=== PATIENT | female | born 1995 | race American Indian/Alaskan Native ===

== ENCOUNTER 2016-03-02 13:58 | Emergency (ER) | payer SELFPAY ==
[2016-03-02 15:09] VITALS: BP 101/56
--- NOTE | 2016-03-02 18:23 | Emergency Department Report ---
Chief Complaint: Urogenital-Female Stated Complaint: STD Time Seen by Provider: 03/02/16 18:07 - HPI History of Present Illness: 20-year-old female presents today complaining of white vaginal discharge since yesterday. Patient states that her boyfriend has also been having discharge. Positive for history of Trichomonas, has been treated. Denies burning upon urination, increased urinary frequency or urgency, fever, chills, nausea, vomiting, chest pain, shortness of breath, abdominal pain. - ROS Review of Systems: Per HPI - Exam Vital Signs: Vital Signs 03/02/16 15:07 Temperature 98.8 F Pulse Rate 71 Respiratory 20 Rate Blood Pressure 101/56 O2 Sat by Pulse 100 Oximetry Physical Exam: General: 20-year-old female in no acute distress. Well-developed, well- nourished. CV: Regular rate and rhythm. Lungs: Clear to auscultation bilaterally. Abdomen: No tenderness to palpation. No guarding or rebound tenderness. Normal bowel sounds. Negative for CVA tenderness bilaterally. MSE screening note: Focused history and physical exam performed. Due to findings the following was ordered: ED Disposition for MSE Disposition: MEDICAL SCREENING EXAM-LEFT Condition: Stable Referrals: PRIMARY CARE, [Primary Care Provider] - 3-5 Days
== END 2016-03-02 18:33 | disposition left against medical advice (07) ==
LOC: ED 13:58
DX: N89.8 Other specified noninflammatory disorders of vagina (principal); Z53.21 Procedure and treatment not carried out due to patient leaving prior to being seen by health care provider

== ENCOUNTER 2016-03-18 20:47 | Emergency (ER) | payer SELFPAY | END 2016-03-18 21:06 | disposition left against medical advice (07) | LOC: ED 20:47 | DX: R10.9 Unspecified abdominal pain (principal); Z53.21 Procedure and treatment not carried out due to patient leaving prior to being seen by health care provider ==

== ENCOUNTER 2016-06-08 16:40 | Emergency (ER) | payer SELFPAY ==
--- NOTE | 2016-06-08 18:37 | Emergency Department Report ---
Entered by JOANNE SADLER, acting as scribe for JEFFERSON SLAUGHTER NP. Chief Complaint: Back Pain/Injury Stated Complaint: BACK PAIN/WHITE D/C /VOMITING Time Seen by Provider: 06/08/16 18:26 - HPI History of Present Illness: 20 y/o female presents c/o back pain that started 2 weeks ago. Secondary complaint includes vaginal discharge with associated Sx of nausea but pt denies vaginal itching, abd pain or vaginal bleeding. She notes positive test at home, one sexual partner and 2nd overall. LMP 01/2016 lmp end dec no concern st l back pain no abd pain no vag bleed no neuro or focal deficits NAD VSS Ambulatory - ROS Review of Systems: as noted in HPI - Exam Vital Signs: Vital Signs 06/08/16 18:14 Temperature 98.3 F Pulse Rate 86 Respiratory 20 Rate Blood Pressure 98/63 O2 Sat by Pulse 100 Oximetry Physical Exam: as noted in HPI MSE screening note: Focused history and physical exam performed. Due to findings the following was ordered: ED Disposition for MSE Condition: Stable This documentation as recorded by the scribe,JOANNE SADLER,accurately reflects the service I personally performed and the decisions made by ,JEFFERSON SLAUGHTER NP.
[2016-06-08 19:43] LABS: Bacteria,Urine 1+ /HPF (Negative); Bilirubin,Urine NEG (Negative); Blood,Urine NEG (Negative); Ketones,Urine NEG (Negative); Leukocyte Esterase,Urine TR (Negative); Mucus,Urine 3+ /HPF; Nitrite,Urine NEG (Negative); Protein,Urine <15 mg/dL mg/dL (Negative)
[2016-06-08 23:24] LABS: Basophils % (Auto) 0.2 % (0.0-1.8); Hematocrit 34.6 % (30.3-42.9); Mean Corpuscular HGB Conc 35 % (30-34); Mean Corpuscular Hemoglobin 31 pg (28-32); Mean Corpuscular Volume 89 fl (79-97); Platelet Count 241 K/mm3 (140-440); Red Blood Count 3.88 M/mm3 (3.65-5.03); Red Cell Distribution Width 13.6 % (13.2-15.2)
--- NOTE | 2016-06-08 23:33 | Ultrasound Report ---
FINAL REPORT PROCEDURE: US OB TECHNIQUE: Real-time transabdominal and transvaginal sonography of the uterus, placenta, amniotic fluid, adnexa, and fetus was performed with image documentation. Measurements were obtained to determine age/size. M-mode Doppler was used to document heartbeat. CPT 75960 HISTORY: Abdominal pain and back pain. COMPARISON: No prior studies are available for comparison. FINDINGS: LMP: 02/13/2016. Clinical age: 16 weeks 4 days. CARMEN: 11/19/2016. GENERAL: IUP: Single living intrauterine . Position: Cephalic. Placental position: Anterior, grade 0 without previa. Amniotic fluid volume: Normal. MATERNAL: Uterus: Within normal limits. Cervical length: 3.47 cm. Internal Os: Closed. FETUS: Heart rate and rhythm: 158 BPM, Regular. anatomic survey: Normal. Brain, stomach, kidneys, bladder, diaphragm, heart, three-vessel cord, cord insertion visualized. Limited visualization of the spine and four-chamber heart. MEASUREMENTS: BPD: 3.31 centimeters, 16 weeks 2 days HC: 12.11 centimeters, 16 weeks 0 days AC: 9.42 centimeters, 15 weeks 4 days FL: 1.85 centimeters, 15 weeks 3 days Mean Gestational Age (composite criteria): 15 weeks 6 days Estimated Weight: 128 grams. Interval growth: Appropriate. Estimated Due Date (earliest scan): 11/24/2016 IMPRESSION: Single intrauterine gestation at 15 weeks 6 days. Estimated due date: 11/24/2016. Normal survey with appropriate growth.
[2016-06-08 23:42] LABS: Anion Gap 17 mmol/L; Blood Urea Nitrogen 4 mg/dL (7-17); Calcium 8.6 mg/dL (8.4-10.2); Carbon Dioxide 23 mmol/L (22-30); Chloride 98.1 mmol/L (98-107); Glucose 95 mg/dL (65-100); Potassium 3.5 mmol/L (3.6-5.0); Sodium 135 mmol/L (137-145)
--- NOTE | 2016-06-09 00:45 | Emergency Department Report ---
HPI - General Chief Complaint: Back Pain/Injury Time Seen by Provider: 06/08/16 22:17 - HPI HPI: 20-year-old female comes in for complaint of vaginal discharge with nausea 2 weeks. Patient also complains of left lower pelvic pain nausea is intermittent she denies any vaginal bleeding denies any dysuria she feels she possibly could be her last menstrual period was sometime in January. She is 2 para 1 she has a 1-year-old boy she did check a home test back in February which was positive. Patient has no past medical history currently on no medications. ED Past Medical Hx - Past Medical History Previous Medical History?: Yes Hx Hypertension: No Hx Congestive Heart Failure: No Hx Diabetes: No Hx Deep Vein Thrombosis: No Hx Renal Disease: No Hx Sickle Cell Disease: No Hx Seizures: No Hx Asthma: No Hx COPD: No Hx HIV: No Additional medical history: freq uti/pyleonephritis - Surgical History Past Surgical History?: No - Social History Smoking Status: Never Smoker Substance Use Type: None - Medications Home Medications: Home Medications Medication Instructions Recorded Confirmed Last Taken Type metroNIDAZOLE 0.75% [Metrogel 1 applicatio TP QHS #5 tube 15 01/21/15 Unknown Rx 0.75% TOPICAL] Docusate Sodium [Colace] 100 mg PO BID PRN #60 capsule 01/21/15 Unknown Rx Ferrous Sulfate [Feosol 325 MG tab] 325 mg PO TID #120 tablet 01/21/15 Unknown Rx Ibuprofen [Motrin 600 MG tab] 600 mg PO Q6H #30 tablet 01/21/15 Unknown Rx Doxylamine/Pyridoxine HCl 1 each PO QHS PRN #20 tablet. 06/09/16 Unknown Rx [Shilpa Serna 10-10 mg Tablet] Jennie Root [Jennie] 250 mg PO QID PRN #20 capsule 06/09/16 Unknown Rx Pnv95/Ferrous Fumarate/FA 1 each PO QDAY #90 tablet 06/09/16 Unknown Rx [ Caplet] metroNIDAZOLE [Flagyl] 500 mg PO Q12HR #14 tab 06/09/16 Unknown Rx ED Review of Systems ROS: Stated complaint: BACK PAIN/WHITE D/C /VOMITING Other details as noted in HPI Physical Exam - Physical Exam Vital Signs: Vital Signs 06/08/16 18:14 Temperature 98.3 F Pulse Rate 86 Respiratory 20 Rate Blood Pressure 98/63 O2 Sat by Pulse 100 Oximetry Physical Exam: GENERAL: Alert and oriented x3, no apparent distress, Normal Gait, atraumatic. HEAD: Head is normocephalic and a-traumatic. EYES: Extra ocular muscles are intact. Pupils are equal, round, and reactive to light and accommodation. NOSE: Nose symetrical, Nontender,Nares appeared normal. MOUTH:Mouth is well hydrated and without lesions. Tonsils nonerythematous or swollen, Uvula midline, Tongue not elevated. Mucous membranes are moist. Posterior pharynx clear, no exudate or lesions. Patent airways. NECK: Supple. Non edematous, No carotid bruits. No lymphadenopathy or thyromegaly. LUNGS: Symetrical with respiration, No wheezing, no rales or crackles, CTAB. HEART: S1, S2 present, regular rate and rhythm without murmur, no rubs, no gallops. ABDOMEN: No organomegaly was noted,Positive bowel sounds, soft, and non- distended. . Nontender to palpation on all Quadrants, NO CVA tenderness. BREAST: Symetrical, Supple bilaterally, No Masses, lumps, lesions, ulcerations. GENITOURINARY: External genitalia without erythema, exudate or discharge. Vaginal vault is without discharge. Cervix is of normal color without lesion. Cervical os is closed. No bleeding noted. but friable. Uterus is noted to be of enlarged.. No cervical motion tenderness. No masses are palpated. The adnexa are without masses or tenderness. EXTREMITIES/MUSCULOSKELETAL: No cyanosis, clubbing, rash, lesions or edema. Full ROM bilaterally. UE/LE Pulses 2+ bilaterally. LE and UE 5+ strength bilaterally NEUROLOGIC: No focal Deficit, Cranial nerves II through XII are grossly intact. No loss of sensation, No facial droop, PSYCHIATRIC: Mood is congruent with affect, SKIN: Warm and dry, No lesions, No ulceration or induration present ED Course Vital Signs 06/08/16 18:14 Temperature 98.3 F Pulse Rate 86 Respiratory 20 Rate Blood Pressure 98/63 O2 Sat by Pulse 100 Oximetry ED Medical Decision Making - Lab Data Result diagrams: 06/08/16 23:02 06/08/16 23:02 Critical care attestation.: If time is entered above; I have spent that time in minutes in the direct care of this critically ill patient, excluding procedure time. ED Disposition Clinical Impression: BV (bacterial vaginosis) Qualifiers: Weeks of gestation: 16 weeks Qualified Code(s): Z3A.16 - 16 weeks gestation of Disposition: DISCHARGED TO HOME OR SELFCARE Is pt being admited?: No Does the pt Need Aspirin: No Condition: Stable Instructions: Bacterial Vaginosis (ED) Additional Instructions: It's very important for you to take her vitamins as prescribed. Please follow-up with an OB specialist to be sure you're having a healthy . He can only take Tylenol for pain medicine at this time. Prescriptions: Doxylamine/Pyridoxine HCl [Shilpa Serna 10-10 mg Tablet] 1 each PO QHS PRN #20 tablet. PRN Reason: Nausea Jennie Root [Jennie] 250 mg PO QID PRN #20 capsule PRN Reason: Nausea metroNIDAZOLE [Flagyl] 500 mg PO Q12HR #14 tab Pnv95/Ferrous Fumarate/FA [ Caplet] 1 each PO QDAY #90 tablet Referrals: PRIMARY CARE, [Primary Care Provider] - 3-5 Days [facility] [Provider Group] - 3-5 Days Forms: STI Treatment and Prevention
[2016-06-09] MEDS ORDERED: ZITHROMAX PO ONE (00:46)
[2016-06-09] MEDS ORDERED: XYLOCAINE 1% MPF 5 mL INFILTRATI ONE (00:46)
[2016-06-09] MEDS ORDERED: ROCEPHIN IM ONE (00:46)
[2016-06-09] MEDS ORDERED: TYLENOL PO ONE (00:48)
[2016-06-09 01:33] VITALS: BP 119/72
== END 2016-06-09 01:32 | disposition home or self-care (01) ==
LOC: ED 16:40
DX: O23.592 Infection of other part of genital tract in pregnancy, second trimester (principal); N76.0 Acute vaginitis; Z3A.16 16 weeks gestation of pregnancy; Z87.440 Personal history of urinary (tract) infections
CPT/HCPCS: 36415; 76805; 76817; 80048; 81001; 81025; 84702; 85025; 86900; 86901; 87210; 96372; 99284; J0696; 87591

== ENCOUNTER 2016-08-14 11:47 | Outpatient (CLI) | payer MEDICAID ==
[2016-08-14] MEDS ORDERED: LACTATED RINGERS 500 ML IV ONE (12:14)
[2016-08-14 12:37] LABS: Bilirubin,Urine NEG (Negative); Blood,Urine NEG (Negative); Ketones,Urine NEG (Negative); Leukocyte Esterase,Urine NEG (Negative); Mucus,Urine FEW /HPF; Nitrite,Urine NEG (Negative); Protein,Urine <15 mg/dL mg/dL (Negative); Urobilinogen,Urine < 2.0 mg/dL (<2.0); WBC,Urine < 1.0 /HPF (0.0-6.0)
[2016-08-14 13:44] VITALS: BP 92/56
== END 2016-08-14 13:30 | disposition home or self-care (01) ==
LOC: TRG 11:47
PROVIDERS: ATTEND Obstetrics & Gynecology
DX: Z34.92 Encounter for supervision of normal pregnancy, unspecified, second trimester (principal); Z3A.27 27 weeks gestation of pregnancy
CPT/HCPCS: 36415; 59025; 81001; 82731; 87086

== ENCOUNTER 2016-11-08 16:03 | Outpatient (CLI) | payer MEDICAID ==
[2016-11-08 16:34] VITALS: BP 95/63
== END 2016-11-08 17:05 | disposition home or self-care (01) ==
LOC: TRG 16:03
PROVIDERS: ATTEND Obstetrics & Gynecology
DX: O47.1 False labor at or after 37 completed weeks of gestation (principal); Z3A.37 37 weeks gestation of pregnancy
CPT/HCPCS: 59025

== ENCOUNTER 2017-06-28 05:09 | Emergency (ER) | payer SELFPAY ==
[2017-06-28 05:28] VITALS: BP 100/62
[2017-06-28 06:16] LABS: Bacteria,Urine 1+ /HPF (Negative); Bilirubin,Urine NEG (Negative); Blood,Urine NEG (Negative); Color,Urine Yellow (Yellow); Mucus,Urine 3+ /HPF
== END 2017-06-28 05:30 | disposition left against medical advice (07) ==
LOC: ED 05:09
DX: R11.2 Nausea with vomiting, unspecified (principal); R51 Headache; Z53.21 Procedure and treatment not carried out due to patient leaving prior to being seen by health care provider
CPT/HCPCS: 81001

== ENCOUNTER 2017-08-10 15:54 | Emergency (ER) | payer SELFPAY ==
[2017-08-10 16:46] VITALS: BP 95/65
[2017-08-10 18:19] LABS: HCG Qualitative,Urine Positive (Negative)
[2017-08-10 18:20] LABS: Bacteria,Urine 1+ /HPF (Negative); Bilirubin,Urine NEG (Negative); Blood,Urine NEG (Negative); Color,Urine Yellow (Yellow); Mucus,Urine 3+ /HPF
--- NOTE | 2017-08-10 20:24 | Emergency Department Report ---
ED General Adult HPI - General Chief complaint: Urogenital-Female Stated complaint: SORE BREAST, NAUSEA,VOMITING AND ABD PAIN Time Seen by Provider: 08/10/17 20:16 Source: patient Mode of arrival: Ambulatory Limitations: No Limitations - History of Present Illness Initial comments: Ms. Vitale is a healthy 21-year-old female who came to the ER for confirmation of . She stated that her home test was positive. Her period was Several weeks late. She requires a prescription for UTI.. She was diagnosed with UTI at outside hospital but lost her prescription. LMP 2017. She denies any pain. Denies any fever. She does have breast soreness and morning sickness. - Related Data Previous Rx's Medication Instructions Recorded Last Taken Type Nitrofurantoin Macrocrystal 100 mg PO BID 10 Days #20 capsule 08/10/17 Unknown Rx [Nitrofurantoin] Allergies Allergy/AdvReac Type Severity Reaction Status Date / Time No Known Allergies Allergy Verified 09/12/14 16:54 ED Review of Systems ROS: Stated complaint: SORE BREAST, NAUSEA,VOMITING AND ABD PAIN Other details as noted in HPI Comment: All other systems reviewed and negative Constitutional: denies: fever, malaise Respiratory: denies: cough Cardiovascular: denies: chest pain Gastrointestinal: nausea. denies: abdominal pain ED Past Medical Hx - Past Medical History Previous Medical History?: Yes Hx Hypertension: No Hx Congestive Heart Failure: No Hx Diabetes: No Hx Deep Vein Thrombosis: No Hx Renal Disease: No Hx Sickle Cell Disease: No Hx Seizures: No Hx Asthma: No Hx COPD: No Hx HIV: No Additional medical history: freq uti/pyleonephritis, Vaginal dleivery 01-20-2017 , 11-19-2017 - Surgical History Past Surgical History?: No - Social History Smoking Status: Current Every Day Smoker Substance Use Type: None - Medications Home Medications: Home Medications Medication Instructions Recorded Confirmed Last Taken Type Nitrofurantoin Macrocrystal 100 mg PO BID 10 Days #20 capsule 08/10/17 Unknown Rx [Nitrofurantoin] ED Physical Exam - General Limitations: No Limitations General appearance: alert, in no apparent distress - Head Head exam: Present: atraumatic, normocephalic - Eye Eye exam: Present: normal appearance - ENT ENT exam: Present: mucous membranes moist - Neck Neck exam: Present: normal inspection - Respiratory Respiratory exam: Present: normal lung sounds bilaterally. Absent: respiratory distress, wheezes, rales, rhonchi - Cardiovascular Cardiovascular Exam: Present: regular rate, normal rhythm, normal heart sounds. Absent: systolic murmur, diastolic murmur, rubs, gallop - GI/Abdominal GI/Abdominal exam: Present: soft, normal bowel sounds. Absent: distended, tenderness, guarding, rebound - Extremities Exam Extremities exam: Present: normal inspection - Back Exam Back exam: Present: normal inspection - Neurological Exam Neurological exam: Present: alert, oriented X3 - Psychiatric Psychiatric exam: Present: normal affect, normal mood - Skin Skin exam: Present: warm, dry, intact, normal color. Absent: rash ED Course Vital Signs 08/10/17 16:42 Temperature 98.6 F Pulse Rate 78 Respiratory 18 Rate Blood Pressure 95/65 O2 Sat by Pulse 99 Oximetry ED Medical Decision Making - Medical Decision Making Ms. Vitale has confirmed with urine test. She also will be treated for UTI. Prescribed nitrofurantoin. Critical care attestation.: If time is entered above; I have spent that time in minutes in the direct care of this critically ill patient, excluding procedure time. ED Disposition Clinical Impression: , UTI (urinary tract infection) Disposition: - TO HOME OR SELFCARE Is pt being admited?: No Does the pt Need Aspirin: No Condition: Stable Instructions: Urinary Tract Infection in Women (ED), (ED) Prescriptions: Nitrofurantoin Macrocrystal [Nitrofurantoin] 100 mg PO BID 10 Days #20 capsule Referrals: MARK AVINA MD [Staff Physician] - 3-5 Days Time of Disposition: 20:24
== END 2017-08-10 20:25 | disposition home or self-care (01) ==
LOC: ED 15:54
DX: O23.41 Unspecified infection of urinary tract in pregnancy, first trimester (principal); O26.891 Other specified pregnancy related conditions, first trimester; O92.29 Other disorders of breast associated with pregnancy and the puerperium; O99.331 Smoking (tobacco) complicating pregnancy, first trimester; Z3A.01 Less than 8 weeks gestation of pregnancy
CPT/HCPCS: 81001; 81025; 99283

== ENCOUNTER 2018-02-19 22:01 | Inpatient (IN) | payer MEDICAID ==
[2018-02-19] MEDS ORDERED: LACTATED RINGERS 500 ML IV ONE (22:31)
[2018-02-19 23:07] LABS: Bilirubin,Urine NEG (Negative); Blood,Urine NEG (Negative); Color,Urine Yellow (Yellow); Mucus,Urine FEW /HPF; Protein,Urine <15 mg/dL mg/dL (Negative)
[2018-02-20] MEDS ORDERED: BRETHINE SUB-Q ONE ×2 (00:44→04:20)
[2018-02-20] MEDS ORDERED: CELESTONE SOLUSPAN IM ONE (00:45)
[2018-02-20] MEDS ORDERED: LACTATED RINGERS 500 ML IV ONE (00:45)
[2018-02-20] MEDS ORDERED: AMPICILLIN/NS 2 GM/100 ML 2 GM/100 ML BAG IV ONE (04:22)
[2018-02-20 04:45] LABS: Amphetamine Screen,Urine PRESUMPTIVE NEGATIVE; Benzodiazepines Screen,Urine PRESUMPTIVE NEGATIVE; Cocaine Screen,Urine PRESUMPTIVE NEGATIVE; Methadone Screen,Urine PRESUMPTIVE NEGATIVE; Opiate Screen,Urine PRESUMPTIVE NEGATIVE
[2018-02-20 04:59] LABS: Cannabinoid Screen,Urine PRESUMPTIVE POSITIVE
--- NOTE | 2018-02-20 05:06 | Ultrasound Report ---
FINAL REPORT EXAM: US OB FOLLOW UP HISTORY: Gestational age, GAURI TECHNIQUE: Transabdominal imaging was obtained of the pelvis. FINDINGS: There is an intrauterine in cephalic presentation with an estimated gestational age of 36 w eeks 2 days based on sonographic criteria. The GAURI is 10.0 cm which is normal. The placenta is anteri or in position and is grade 2. There is no evidence of abruption. The heart rate is 116 BPM. A survey of organs was not obtained. The estimated weight is 2866 grams. IMPRESSION: Cephalic presentation, 36 weeks 2 days gestational. Normal GAURI of 10.0 cm. heart rate is 116 BPM. weight is 2866 grams.
[2018-02-20] MEDS ORDERED: ZOFRAN IV PRN (05:11)
[2018-02-20] MEDS ORDERED: SUBLIMAZE IV ONE (05:12)
--- NOTE | 2018-02-20 05:17 | History and Physical Report ---
History of Present Illness Date of examination: 02/20/18 Date of admission: 02/20/18 05:06 Chief complaint: Contractions History of present illness: 22 year old presents to L&D complaining of contractions since last night around 8:00 PM. Patient denies leaking of fluid or vaginal bleeding. Patient denies falls or abdominal trauma. Patient reports active movement. Patient states she has been receiving care at [facility] since around 30 weeks gestation; she states she was a late transfer-in. No records are available. Will pass this on to oncoming band sawyer so that records can be requested when office opens at 8:30 AM today. Patient states her EDC is 03/18/18. She states she has had no complications during her except a UTI for which she has been taking Macrobid and anemia for which she has been taking iron supplements. Patient reports a history of 2 previous vaginal births, one at full term and one at 36 weeks gestation. She denies any history of pelvic surgeries or [facility] [employer] [facility] problems. She denies having a history of herpes. Past History Past Medical History: no pertinent history Past Surgical History: no surgical history [facility] [employer] [facility] History: denies: abnormal PAP smear, chlamydia, fibroids, gonorrhea, hepatitis B, hepatitis C, herpes, HIV, syphilis Family/Genetic History: none Social history: lives with family, full code. denies: smoking, alcohol abuse, prescription drug abuse, IV drug use - Obstetrical History Expected Date of Delivery: 03/18/18 Actual Gestation: 36 Week(s) 2 Day(s) : 3 Para: 2 Hx # Term Pregnancies: 1 Number of Pregnancies: 2 Spontaneous Abortions: 0 Induced : 0 Number of Living Children: 2 Medications and Allergies Allergies Allergy/AdvReac Type Severity Reaction Status Date / Time No Known Allergies Allergy Verified 09/12/14 16:54 Home Medications Medication Instructions Recorded Confirmed Last Taken Type Nitrofurantoin Macrocrystal 100 mg PO BID 10 Days #20 capsule 08/10/17 Unknown Rx [Nitrofurantoin] Active Meds: Active Medications Ampicillin Sodium (Polycillin/Ns 2 Gm/100 Ml) 2 gm in 100 mls @ 100 mls/hr IV ONCE ONE; Protocol Stop: 02/20/18 05:21 Lactated Ringer's (Lactated Ringers) 1,000 mls @ 125 mls/hr IV DIRECT ZEYNEP Ampicillin Sodium (Ampicillin/Ns 1 Gm/50 Ml) 1 gm in 50 mls @ 100 mls/hr IV Q4HR ZEYNEP; Protocol Ondansetron HCl (Zofran) 4 mg IV Q8H PRN PRN Reason: Nausea And Vomiting Review of Systems All systems: negative (contractions) - Vital Signs Vital signs: Vital Signs Temp Pulse Resp BP 98.2 F 101 H 18 100/61 02/19/18 22:16 02/19/18 22:16 02/19/18 22:16 02/19/18 22:16 Temp Pulse Resp BP Pulse Ox 98.2 F 101 H 18 100/61 02/19/18 22:16 02/19/18 22:17 02/19/18 22:16 02/19/18 22:17 - Physical Exam Abdomen: Positive: normal appearance, soft. Negative: distention, tenderness, guarding, rigidity Genitourinary (Female): Positive: normal external genitalia, normal perenium. Negative: perineal/vulvar lesions Uterus: Positive: enlarged. Negative: tender (size=dates) Extremities: Positive: normal. Negative: tenderness, edema - Obstetrical FHR: category 1 Uterine Contraction Monitor Mode: External Cervical Dilatation: 3.5 Cervical Effacement Percentage: 60 station: -2 Uterine Contraction Pattern: Irregular Uterine Contraction Intensity: Moderate Results All other labs normal. Assessment and Plan A: at 36 weeks, 2 days gestation (US in triage today agrees with this gestational age). contractions/threatened labor. GBS status unknown. P: Admit. IV hydration. GBS prophylaxis. Obtain records from [facility] as soon as office opens. EFM. Betamethasone (patient has received first injection in triage, second injection due tonight).
[2018-02-20 06:18] LABS: Hematocrit 27.2 % (30.3-42.9); Hemoglobin 9.1 gm/dl (10.1-14.3); Mean Corpuscular HGB Conc 34 % (30-34); Mean Corpuscular Volume 85 fl (79-97); Platelet Count 234 K/mm3 (140-440); Red Cell Distribution Width 16.4 % (13.2-15.2)
[2018-02-20 08:38] LABS: Band Neutrophils # (Manual) 0.1 K/mm3; Basophils % (Manual) 0 % (0.0-1.8); Eosinophils % (Manual) 0 % (0.0-4.3); Total Cells Counted 100
[2018-02-20 08:39] LABS: Anisocytosis 1+; Platelet Estimate Consistent w Auto
--- NOTE | 2018-02-20 09:47 | Event Note ---
Date: 02/20/18 S: Pt in semi-masters's position and c/o contractions. Pain level 8/10. Pain med offered but patient declined. O: FHR 130, moderate variability, 15x15 accels, no decels Ctxs: q5-6mins, palpate moderate SVE: 3-4/60/-2/intact/vtx (per RN) A: 22yo G 3 P 1 1 0 2 @ 36 weeks 2 days Category I FHR Active labor P: Continue current management Request for records from [facility] sent
[2018-02-20] MEDS: AMPICILLIN/NS 1 GM/50 ML 1 GM/50 ML BAG IV SCH ×4 (10:35→22:23)
--- NOTE | 2018-02-20 11:21 | Progress Note ---
Assessment and Plan - Patient Problems (1) 35 weeks gestation of Current Visit: Yes Status: Acute (2) Threatened labor, antepartum Current Visit: Yes Status: Acute Plan to address problem: Continue current management (3) Gestational diabetes mellitus (GDM) Current Visit: Yes Status: Acute Qualifiers: Gestational diabetes mellitus control: diet-controlled Trimester: third trimester Qualified Code(s): O24.410 - Gestational diabetes mellitus in , diet controlled Plan to address problem: Consulted Dr. Mustafa about POC. She recommended expectant management and accuchecks per protocol Diabetes Education consult ordered (4) Anemia affecting in third trimester Current Visit: Yes Status: Acute Plan to address problem: Asymptomatic Continue iron therapy Subjective - Subjective Date of service: 02/20/18 Principal diagnosis: Contractions Interval history: Patient presented to the hospital early this morning with c/o contractions that started on 02/19/18 @ 8pm. No records were available at time of admission. She gave an CARMEN of 03/18/18. An ultrasound was done which confirmed the CARMEN. Celestone for lung maturity was given and patient was started on ampicillin for GBS prophylaxis. Upon review of the patients records her CARMEN is 03/26/18 with a gestational age of 35 weeks 1 day. Her course has been complicated by i nsufficient care, +trich (treated), +marijuana, UTI (still taking Macrobid x5 days), gestational diabetes (pt reports she wasn't aware) and anemia (on iron therapy). Patient reports: movement normal, contractions, no loss of fluid, no vaginal bleeding Objective - Vital Signs Vital Signs: Vital Signs - 12hr 02/20/18 02/20/18 02/20/18 05:15 06:11 07:20 Temperature 98.5 F 98.3 F Pulse Rate 97 H 108 H Respiratory 18 20 Rate Blood Pressure 146/80 Blood Pressure 95/59 [Left] - Exam Abdomen: Present: normal appearance, soft Vulva: both: normal FHR: auscultation normal, category 1 FHR comments: baseline 130, moderate variability, 15x15 accels, no decels Uterine Contraction Monitor Mode: External Cervical Dilatation: 3.5 Cervical Effacement Percentage: 60 station: -2 Uterine Contraction Frequency (min): 7 Uterine Contraction Pattern: Regular - Labs Labs: Abnormal Labs 02/20/18 02/20/18 05:39 10:57 RBC 3.20 L Hgb 9.1 L Hct 27.2 L RDW 16.4 H Seg Neuts % (Manual) 93.0 H Lymphocytes % (Manual) 4.0 L Lymphocytes # (Manual) 0.3 L POC Glucose 119 H Laboratory Results - last 24 hr 02/19/18 02/19/18 02/20/18 22:50 22:50 05:39 WBC 6.9 RBC 3.20 L Hgb 9.1 L Hct 27.2 L MCV 85 MCH 29 MCHC 34 RDW 16.4 H Plt Count 234 Add Manual Diff Complete Total Counted 100 Seg Neutrophils % Java Consultant Seg Neuts % (Manual) 93.0 H Band Neutrophils % 2.0 Lymphocytes % (Manual) 4.0 L Reactive Lymphs % (Man) 0 Monocytes % (Manual) 1.0 Eosinophils % (Manual) 0 Basophils % (Manual) 0 Metamyelocytes % 0 Myelocytes % 0 Promyelocytes % 0 Blast Cells % 0 Nucleated RBC % Not Reportable Seg Neutrophils # Man 6.4 Band Neutrophils # 0.1 Lymphocytes # (Manual) 0.3 L Abs React Lymphs (Man) 0.0 Monocytes # (Manual) 0.1 Eosinophils # (Manual) 0.0 Basophils # (Manual) 0.0 Metamyelocytes # 0.0 Myelocytes # 0.0 Promyelocytes # 0.0 Blast Cells # 0.0 WBC Morphology Not Reportable Hypersegmented Neuts Not Reportable Hyposegmented Neuts Not Reportable Hypogranular Neuts Not Reportable Smudge Cells Not Reportable Toxic Granulation Not Reportable Toxic Vacuolation Not Reportable Dohle Bodies Not Reportable Pelger-Huet Anomaly Not Reportable Yoselin Rods Not Reportable Platelet Estimate Consistent w auto Clumped Platelets Not Reportable Plt Clumps, EDTA Not Reportable Large Platelets Not Reportable Giant Platelets Not Reportable Platelet Satelliting Not Reportable Plt Morphology Comment Not Reportable RBC Morphology Not Reportable Dimorphic RBCs Not Reportable Polychromasia Not Reportable Hypochromasia Not Reportable Poikilocytosis Not Reportable Anisocytosis 1+ Microcytosis Not Reportable Macrocytosis Not Reportable Spherocytes Not Reportable Pappenheimer Bodies Not Reportable Sickle Cells Not Reportable Target Cells Not Reportable Tear Drop Cells Not Reportable Ovalocytes Not Reportable Helmet Cells Not Reportable [place] Bodies Not Reportable [place] Rings Not Reportable Mitch Cells Not Reportable Bite Cells Not Reportable Crenated Cell Not Reportable Elliptocytes Not Reportable Acanthocytes (Spur) Not Reportable Rouleaux Not Reportable Hemoglobin C Crystals Not Reportable Schistocytes Not Reportable Malaria parasites Not Reportable Ag Bodies Not Reportable Hem Pathologist Commnt No POC Glucose Urine Color Yellow Urine Turbidity Clear Urine pH 7.0 Ur Specific [place] 1.006 Urine Protein <15 mg/dl Urine Glucose (UA) Neg Urine Ketones Neg Urine Blood Neg Urine Nitrite Neg Urine Bilirubin Neg Urine Urobilinogen 2.0 Ur Leukocyte Esterase Mod Urine WBC (Auto) 4.0 Urine RBC (Auto) 3.0 U Epithel Cells (Auto) < 1.0 Urine Mucus Few Urine Opiates Screen Presumptive negative Urine Methadone Screen Presumptive negative Ur Barbiturates Screen Presumptive negative Ur Phencyclidine Scrn Presumptive negative Ur Amphetamines Screen Presumptive negative U Benzodiazepines Scrn Presumptive negative Urine Cocaine Screen Presumptive negative U Marijuana (THC) Screen Presumptive positive Drugs of Abuse Note Disclamer Hep Bs Antigen HIV 1&2 Antibody Rapid HIV P24 Antigen Blood Type Antibody Screen 02/20/18 02/20/18 02/20/18 05:39 05:39 05:42 WBC RBC Hgb Hct MCV MCH MCHC RDW Plt Count Add Manual Diff Total Counted Seg Neutrophils % Seg Neuts % (Manual) Band Neutrophils % Lymphocytes % (Manual) Reactive Lymphs % (Man) Monocytes % (Manual) Eosinophils % (Manual) Basophils % (Manual) Metamyelocytes % Myelocytes % Promyelocytes % Blast Cells % Nucleated RBC % Seg Neutrophils # Man Band Neutrophils # Lymphocytes # (Manual) Abs React Lymphs (Man) Monocytes # (Manual) Eosinophils # (Manual) Basophils # (Manual) Metamyelocytes # Myelocytes # Promyelocytes # Blast Cells # WBC Morphology Hypersegmented Neuts Hyposegmented Neuts Hypogranular Neuts Smudge Cells Toxic Granulation Toxic Vacuolation Dohle Bodies Pelger-Huet Anomaly Yoselin Rods Platelet Estimate Clumped Platelets Plt Clumps, EDTA Large Platelets Giant Platelets Platelet Satelliting Plt Morphology Comment RBC Morphology Dimorphic RBCs Polychromasia Hypochromasia Poikilocytosis Anisocytosis Microcytosis Macrocytosis Spherocytes Pappenheimer Bodies Sickle Cells Target Cells Tear Drop Cells Ovalocytes Helmet Cells [place]royo-Sand[place] Bodies [place] Rings Mitch Cells Bite Cells Crenated Cell Elliptocytes Acanthocytes (Spur) Rouleaux Hemoglobin C Crystals Schistocytes Malaria parasites Ag Bodies Hem Pathologist Commnt POC Glucose Urine Color Urine Turbidity Urine pH Ur Specific [place] Urine Protein Urine Glucose (UA) Urine Ketones Urine Blood Urine Nitrite Urine Bilirubin Urine Urobilinogen Ur Leukocyte Esterase Urine WBC (Auto) Urine RBC (Auto) U Epithel Cells (Auto) Urine Mucus Urine Opiates Screen Urine Methadone Screen Ur Barbiturates Screen Ur Phencyclidine Scrn Ur Amphetamines Screen U Benzodiazepines Scrn Urine Cocaine Screen U Marijuana (THC) Screen Drugs of Abuse Note Hep Bs Antigen Non-reactive HIV 1&2 Antibody Rapid Non react HIV P24 Antigen Non react Blood Type A POSITIVE Antibody Screen Negative 02/20/18 10:57 WBC RBC Hgb Hct MCV MCH MCHC RDW Plt Count Add Manual Diff Total Counted Seg Neutrophils % Seg Neuts % (Manual) Band Neutrophils % Lymphocytes % (Manual) Reactive Lymphs % (Man) Monocytes % (Manual) Eosinophils % (Manual) Basophils % (Manual) Metamyelocytes % Myelocytes % Promyelocytes % Blast Cells % Nucleated RBC % Seg Neutrophils # Man Band Neutrophils # Lymphocytes # (Manual) Abs React Lymphs (Man) Monocytes # (Manual) Eosinophils # (Manual) Basophils # (Manual) Metamyelocytes # Myelocytes # Promyelocytes # Blast Cells # WBC Morphology Hypersegmented Neuts Hyposegmented Neuts Hypogranular Neuts Smudge Cells Toxic Granulation Toxic Vacuolation Dohle Bodies Pelger-Huet Anomaly Yoselin Rods Platelet Estimate Clumped Platelets Plt Clumps, EDTA Large Platelets Giant Platelets Platelet Satelliting Plt Morphology Comment RBC Morphology Dimorphic RBCs Polychromasia Hypochromasia Poikilocytosis Anisocytosis Microcytosis Macrocytosis Spherocytes Pappenheimer Bodies Sickle Cells Target Cells Tear Drop Cells Ovalocytes Helmet Cells [place]royo-Sandborn Bodies [place] Rings Section Cells Bite Cells Crenated Cell Elliptocytes Acanthocytes (Spur) Rouleaux Hemoglobin C Crystals Schistocytes Malaria parasites Ag Bodies Hem Pathologist Commnt POC Glucose 119 H Urine Color Urine Turbidity Urine pH Ur Specific [place] Urine Protein Urine Glucose (UA) Urine Ketones Urine Blood Urine Nitrite Urine Bilirubin Urine Urobilinogen Ur Leukocyte Esterase Urine WBC (Auto) Urine RBC (Auto) U Epithel Cells (Auto) Urine Mucus Urine Opiates Screen Urine Methadone Screen Ur Barbiturates Screen Ur Phencyclidine Scrn Ur Amphetamines Screen U Benzodiazepines Scrn Urine Cocaine Screen U Marijuana (THC) Screen Drugs of Abuse Note Hep Bs Antigen HIV 1&2 Antibody Rapid HIV P24 Antigen Blood Type Antibody Screen
[2018-02-20] MEDS: MACROBID PO SCH ×2 (12:07→22:22)
[2018-02-20] MEDS: LACTATED RINGERS 1,000 ML IV SCH (15:45)
[2018-02-20] MEDS ORDERED: ZOFRAN IM ONE (16:26)
[2018-02-20 17:16] LABS: Creatine Kinase MB 1.6 ng/mL (0.0-4.0)
--- NOTE | 2018-02-20 17:20 | Event Note ---
Date: 02/20/18 I received a call from CORNELIO Silva that patient is complaining of severe chest pain. Upon my arrival, the patient was in semi-masters's position, oxygen via NR mask in place, BP 131/60, HR 120, O2 sat 100% on Oxygen & 98% on RA. FHR 125, moderate variability, 15x15 accels, no decels. Ctxs Q7-9mins. Vomited x1. I consulted Dr. Mustafa and she recommended stat EKG, Pepcid 20mg IV, and Internal Medicine Consult. EKG: normal sinus rhythm Called placed to Dr. Ronna Cherry (Internal Medicine) and he recommended stat Troponin, CK and CKMB pending bedside evaluation.
[2018-02-20] MEDS ORDERED: PEPCID IV SCH (18:00)
--- NOTE | 2018-02-20 20:44 | History and Physical Report ---
History of Present Illness Date of examination: 02/20/18 Date of admission: 02/20/18 05:06 Chief complaint: Chest pain since a.m. History of present illness: 22-year-old -[place] female with comes in for lower abdominal contractions since last night. Patient is around 34 weeks gestation. Patient developed chest pain around 11 AM this morning. Also epigastric pain. Pain is dull. No shortness of breath no palpitations no nausea no diaphoresis. No fever or chills. 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 denies: smoking, alcohol abuse, prescription drug abuse, IV drug use Review of Systems All systems: negative (contractions) - Past History Social history: lives with family, full code. denies: smoking, alcohol abuse, prescription drug abuse, IV drug use Medications and Allergies Allergies Allergy/AdvReac Type Severity Reaction Status Date / Time No Known Allergies Allergy Verified 09/12/14 16:54 Home Medications Medication Instructions Recorded Confirmed Last Taken Type Nitrofurantoin Macrocrystal 100 mg PO BID 10 Days #20 capsule 08/10/17 Unknown Rx [Nitrofurantoin] Active Meds: Active Medications Al Hydrox/Mg Hydrox/Simethicone (Alum-Mag Hydrox-Simeth [id number]/5ml) 30 ml PO Q4H PRN PRN Reason: Indigestion Famotidine (Pepcid) 20 mg IV QDAY [facility] Last Admin: 02/20/18 16:20 Dose: 20 mg Documented by: Ferrous Sulfate (Feosol) 325 mg PO BID [facility] Lactated Ringer's (Lactated Ringers) 1,000 mls @ 125 mls/hr IV DIRECT [facility] Last Admin: 02/20/18 15:45 Dose: 125 mls/hr Documented by: Ampicillin Sodium (Ampicillin/Ns 1 Gm/50 Ml) 1 gm in 50 mls @ 100 mls/hr IV Q4HR [facility]; Protocol Last Admin: 02/20/18 18:40 Dose: 100 mls/hr Documented by: Nitrofurantoin Macrocrystals (Macrobid) 100 mg PO Q12HR ZEYNEP Stop: 02/21/18 23:59 Last Admin: 02/20/18 12:07 Dose: 100 mg Documented by: Ondansetron HCl (Zofran) 4 mg IV Q8H PRN PRN Reason: Nausea And Vomiting Last Admin: 02/20/18 16:28 Dose: 4 mg Documented by: Exam - Constitutional Vitals: Temp Pulse Resp BP Pulse Ox 98.8 F 101 H 99 H 96/50 91 02/20/18 12:06 02/20/18 20:02 02/20/18 16:30 02/20/18 20:02 02/20/18 18:41 Results - Labs CBC & Chem 7: 02/20/18 05:39 Labs: Laboratory Last Values WBC 6.9 K/mm3 (4.5-11.0) 02/20/18 05:39 RBC 3.20 M/mm3 (3.65-5.03) L 02/20/18 05:39 Hgb 9.1 gm/dl (10.1-14.3) L 02/20/18 05:39 Hct 27.2 % (30.3-42.9) L 02/20/18 05:39 MCV 85 fl (79-97) 02/20/18 05:39 MCH 29 pg (28-32) 02/20/18 05:39 MCHC 34 % (30-34) 02/20/18 05:39 RDW 16.4 % (13.2-15.2) H 02/20/18 05:39 Plt Count 234 K/mm3 (140-440) 02/20/18 05:39 Add Manual Diff Complete 02/20/18 05:39 Total Counted 100 02/20/18 05:39 Seg Neutrophils % Rocket Motor Mechanic 02/20/18 05:39 Seg Neuts % (Manual) 93.0 % (40.0-70.0) H 02/20/18 05:39 Band Neutrophils % 2.0 % 02/20/18 05:39 Lymphocytes % (Manual) 4.0 % (13.4-35.0) L 02/20/18 05:39 Reactive Lymphs % (Man) 0 % 02/20/18 05:39 Monocytes % (Manual) 1.0 % (0.0-7.3) 02/20/18 05:39 Eosinophils % (Manual) 0 % (0.0-4.3) 02/20/18 05:39 Basophils % (Manual) 0 % (0.0-1.8) 02/20/18 05:39 Metamyelocytes % 0 % 02/20/18 05:39 Myelocytes % 0 % 02/20/18 05:39 Promyelocytes % 0 % 02/20/18 05:39 Blast Cells % 0 % 02/20/18 05:39 Nucleated RBC % Not Reportable 02/20/18 05:39 Seg Neutrophils # Man 6.4 K/mm3 (1.8-7.7) 02/20/18 05:39 Band Neutrophils # 0.1 K/mm3 02/20/18 05:39 Lymphocytes # (Manual) 0.3 K/mm3 (1.2-5.4) L 02/20/18 05:39 Abs React Lymphs (Man) 0.0 K/mm3 02/20/18 05:39 Monocytes # (Manual) 0.1 K/mm3 (0.0-0.8) 02/20/18 05:39 Eosinophils # (Manual) 0.0 K/mm3 (0.0-0.4) 02/20/18 05:39 Basophils # (Manual) 0.0 K/mm3 (0.0-0.1) 02/20/18 05:39 Metamyelocytes # 0.0 K/mm3 02/20/18 05:39 Myelocytes # 0.0 K/mm3 02/20/18 05:39 Promyelocytes # 0.0 K/mm3 02/20/18 05:39 Blast Cells # 0.0 K/mm3 02/20/18 05:39 WBC Morphology Not Reportable 02/20/18 05:39 Hypersegmented Neuts Not Reportable 02/20/18 05:39 Hyposegmented Neuts Not Reportable 02/20/18 05:39 Hypogranular Neuts Not Reportable 02/20/18 05:39 Smudge Cells Not Reportable 02/20/18 05:39 Toxic Granulation Not Reportable 02/20/18 05:39 Toxic Vacuolation Not Reportable 02/20/18 05:39 Dohle Bodies Not Reportable 02/20/18 05:39 Pelger-Huet Anomaly Not Reportable 02/20/18 05:39 Yoselin Rods Not Reportable 02/20/18 05:39 Platelet Estimate Consistent w auto 02/20/18 05:39 Clumped Platelets Not Reportable 02/20/18 05:39 Plt Clumps, EDTA Not Reportable 02/20/18 05:39 Large Platelets Not Reportable 02/20/18 05:39 Giant Platelets Not Reportable 02/20/18 05:39 Platelet Satelliting Not Reportable 02/20/18 05:39 Plt Morphology Comment Not Reportable 02/20/18 05:39 RBC Morphology Not Reportable 02/20/18 05:39 Dimorphic RBCs Not Reportable 02/20/18 05:39 Polychromasia Not Reportable 02/20/18 05:39 Hypochromasia Not Reportable 02/20/18 05:39 Poikilocytosis Not Reportable 02/20/18 05:39 Anisocytosis 1+ 02/20/18 05:39 Microcytosis Not Reportable 02/20/18 05:39 Macrocytosis Not Reportable 02/20/18 05:39 Spherocytes Not Reportable 02/20/18 05:39 Pappenheimer Bodies Not Reportable 02/20/18 05:39 Sickle Cells Not Reportable 02/20/18 05:39 Target Cells Not Reportable 02/20/18 05:39 Tear Drop Cells Not Reportable 02/20/18 05:39 Ovalocytes Not Reportable 02/20/18 05:39 Helmet Cells Not Reportable 02/20/18 05:39 [place] Bodies Not Reportable 02/20/18 05:39 [place] Rings Not Reportable 02/20/18 05:39 Mitch Cells Not Reportable 02/20/18 05:39 Bite Cells Not Reportable 02/20/18 05:39 Crenated Cell Not Reportable 02/20/18 05:39 Elliptocytes Not Reportable 02/20/18 05:39 Acanthocytes (Spur) Not Reportable 02/20/18 05:39 Rouleaux Not Reportable 02/20/18 05:39 Hemoglobin C Crystals Not Reportable 02/20/18 05:39 Schistocytes Not Reportable 02/20/18 05:39 Malaria parasites Not Reportable 02/20/18 05:39 Ag Bodies Not Reportable 02/20/18 05:39 Hem Pathologist Commnt No 02/20/18 05:39 POC Glucose 118 (70-105) H 02/20/18 20:01 Total Creatine Kinase 139 units/L (30-135) H 02/20/18 16:47 CK-MB (CK-2) 1.6 ng/mL (0.0-4.0) 02/20/18 16:47 CK-MB (CK-2) Rel Index 1.1 (0-4) 02/20/18 16:47 Troponin T < 0.010 ng/mL (0.00-0.029) 02/20/18 16:47 Urine Color Yellow (Yellow) 02/19/18 22:50 Urine Turbidity Clear (Clear) 02/19/18 22:50 Urine pH 7.0 (5.0-7.0) 02/19/18 22:50 Ur Specific [place] 1.006 (1.003-1.030) 02/19/18 22:50 Urine Protein <15 mg/dl mg/dL (Negative) 02/19/18 22:50 Urine Glucose (UA) Neg mg/dL (Negative) 02/19/18 22:50 Urine Ketones Neg mg/dL (Negative) 02/19/18 22:50 Urine Blood Neg (Negative) 02/19/18 22:50 Urine Nitrite Neg (Negative) 02/19/18 22:50 Urine Bilirubin Neg (Negative) 02/19/18 22:50 Urine Urobilinogen 2.0 mg/dL (<2.0) 02/19/18 22:50 Ur Leukocyte Esterase Mod (Negative) 02/19/18 22:50 Urine WBC (Auto) 4.0 /HPF (0.0-6.0) 02/19/18 22:50 Urine RBC (Auto) 3.0 /HPF (0.0-6.0) 02/19/18 22:50 U Epithel Cells (Auto) < 1.0 /HPF (0-13.0) 02/19/18 22:50 Urine Mucus Few /HPF 02/19/18 22:50 Urine Opiates Screen Presumptive negative 02/19/18 22:50 Urine Methadone Screen Presumptive negative 02/19/18 22:50 Ur Barbiturates Screen Presumptive negative 02/19/18 22:50 Ur Phencyclidine Scrn Presumptive negative 02/19/18 22:50 Ur Amphetamines Screen Presumptive negative 02/19/18 22:50 U Benzodiazepines Scrn Presumptive negative 02/19/18 22:50 Urine Cocaine Screen Presumptive negative 02/19/18 22:50 U Marijuana (THC) Screen Presumptive positive 02/19/18 22:50 Drugs of Abuse Note Disclamer 02/19/18 22:50 RPR Nonreactive (Nonreactive) 02/20/18 05:39 Hep Bs Antigen Non-reactive (Negative) 02/20/18 05:39 HIV 1&2 Antibody Rapid Non react (Non React) 02/20/18 05:39 HIV P24 Antigen Non react (Non React) 02/20/18 05:39 Blood Type A POSITIVE 02/20/18 05:42 Antibody Screen Negative 02/20/18 05:42 - Imaging and Cardiology EKG: report reviewed (104/min sinus tachycardia) Assessment and Plan Advance Directives: Yes (full code) VTE prophylaxis?: Mechanical Plan of care discussed with patient/family: Yes - Patient Problems (1) Chest pain Current Visit: Yes Status: Acute Qualifiers: Chest pain type: unspecified Qualified Code(s): R07.9 - Chest pain, unspecified Plan to address problem: Initial enzymes negative EKG normal No need for Lexiscan or stress test Clinical picture consistent with reflux gastritis/esophagitis Will initiate on famotidine and Maalox (2) 35 weeks gestation of Current Visit: Yes Status: Acute Plan to address problem: 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
[2018-02-20 22:05] LABS: % Iron Saturation 7.47 %
[2018-02-20] MEDS: FEOSOL PO SCH (22:22)
[2018-02-20] MEDS: ALUM-MAG HYDROX-SIMETH 200-200-20MG/5ML PO PRN (22:22)
[2018-02-20] MEDS: PEPCID IV SCH (22:22)
[2018-02-21] MEDS ORDERED: STADOL ONE (05:20)
[2018-02-21] MEDS: STADOL IV PRN (05:28)
[2018-02-21] MEDS: AMPICILLIN/NS 1 GM/50 ML 1 GM/50 ML BAG IV SCH (05:29)
--- NOTE | 2018-02-21 07:49 | Event Note ---
Date: 02/21/18 Received a call from RN that pt is in severe distress. Pt supine in semi- masters's position and moaning. Pain level 10/10. Abdomen soft on palpation. She reports backpain. FHR baseline 115, moderate variability, +accels, no decels. Ctxs irregular. SVE 4/50/-2/I/Vtx. Pain medicine offered but patient declined stating "it makes me loopy." Pt taken by RN to the bathroom for a shower. Will continue expectant management and start procardia for [place].
[2018-02-21] MEDS: ALUM-MAG HYDROX-SIMETH 200-200-20MG/5ML PO PRN (08:00)
[2018-02-21] MEDS ORDERED: PROCARDIA*For Tocolysis only PO SCH (08:00)
--- NOTE | 2018-02-21 10:33 | Progress Note ---
Assessment and Plan A: Contractions Irregular contractions; No change in SVE Category 1 tracing GDM; Diet controlled; BS 100 this am P: Continue procardia Continue to evaluate for labor. Subjective - Subjective Date of service: 02/21/18 Principal diagnosis: Contractions Interval history: See H&P and other notes Patient reports: movement normal, contractions, no loss of fluid, no vaginal bleeding Objective - Vital Signs Vital Signs: Vital Signs - 12hr 02/21/18 02/21/18 02/21/18 00:51 02:01 04:02 Temperature Pulse Rate 81 82 65 Respiratory Rate Blood Pressure 101/62 89/50 96/55 O2 Sat by Pulse Oximetry 02/21/18 02/21/18 02/21/18 05:10 05:26 05:28 Temperature 97.9 F Pulse Rate 82 Respiratory 18 18 Rate Blood Pressure O2 Sat by Pulse 90 Oximetry 02/21/18 02/21/18 02/21/18 05:31 05:36 05:37 Temperature Pulse Rate 79 83 79 Respiratory Rate Blood Pressure O2 Sat by Pulse 96 95 94 Oximetry 02/21/18 02/21/18 02/21/18 05:41 05:43 05:46 Temperature Pulse Rate 79 81 81 Respiratory Rate Blood Pressure O2 Sat by Pulse 94 94 95 Oximetry 02/21/18 02/21/18 02/21/18 05:48 05:51 05:56 Temperature Pulse Rate 83 81 75 Respiratory Rate Blood Pressure O2 Sat by Pulse 94 95 97 Oximetry 02/21/18 02/21/18 02/21/18 06:01 06:06 06:11 Temperature Pulse Rate 85 89 77 Respiratory Rate Blood Pressure O2 Sat by Pulse 97 98 97 Oximetry 02/21/18 02/21/18 02/21/18 06:18 06:23 06:31 Temperature Pulse Rate 88 84 77 Respiratory Rate Blood Pressure O2 Sat by Pulse 89 97 99 Oximetry 02/21/18 02/21/18 02/21/18 06:36 06:41 06:46 Temperature Pulse Rate 84 79 78 Respiratory Rate Blood Pressure O2 Sat by Pulse 97 96 99 Oximetry 02/21/18 02/21/18 02/21/18 06:51 07:12 07:13 Temperature Pulse Rate 78 108 H 127 H Respiratory Rate Blood Pressure 111/80 O2 Sat by Pulse 100 99 Oximetry 02/21/18 02/21/18 02/21/18 07:17 07:22 07:37 Temperature Pulse Rate 106 H 80 86 Respiratory Rate Blood Pressure O2 Sat by Pulse 100 75 L 99 Oximetry 02/21/18 02/21/18 02/21/18 07:42 07:47 07:52 Temperature Pulse Rate 76 80 97 H Respiratory Rate Blood Pressure O2 Sat by Pulse 99 98 98 Oximetry 02/21/18 02/21/18 02/21/18 07:57 08:02 08:07 Temperature Pulse Rate 94 H 104 H 81 Respiratory Rate Blood Pressure O2 Sat by Pulse 99 99 99 Oximetry 02/21/18 02/21/18 02/21/18 08:08 08:12 08:17 Temperature Pulse Rate 68 97 H 97 H Respiratory Rate Blood Pressure O2 Sat by Pulse 94 99 99 Oximetry 02/21/18 02/21/18 02/21/18 08:22 08:27 08:32 Temperature Pulse Rate 78 87 82 Respiratory Rate Blood Pressure O2 Sat by Pulse 98 99 98 Oximetry 02/21/18 02/21/18 02/21/18 08:37 08:42 08:47 Temperature Pulse Rate 89 102 H 99 H Respiratory Rate Blood Pressure O2 Sat by Pulse 99 100 99 Oximetry 02/21/18 02/21/18 02/21/18 09:00 09:01 09:02 Temperature 97.9 F Pulse Rate 109 H 102 H Respiratory 16 Rate Blood Pressure 88/51 O2 Sat by Pulse 100 Oximetry 02/21/18 02/21/18 02/21/18 09:06 09:11 09:16 Temperature Pulse Rate 90 102 H 98 H Respiratory Rate Blood Pressure O2 Sat by Pulse 98 98 99 Oximetry 02/21/18 02/21/18 09:21 09:26 Temperature Pulse Rate 97 H 94 H Respiratory Rate Blood Pressure O2 Sat by Pulse 99 96 Oximetry - Exam Breasts: normal Cardiovascular: Regular rate, Normal S1, Normal S2, No murmurs Lungs: Clear to auscultation, Normal air movement Abdomen: Present: normal appearance, soft, normal bowel sounds, other (gravid) Vulva: both: normal Uterus: Present: other (Gravid; S=D) FHR: auscultation normal, category 1 Uterine Contraction Monitor Mode: External Cervical Dilatation: 4 (No change, Per MICHAEL Price) Cervical Effacement Percentage: 50 station: -2 Uterine Contraction Frequency (min): 5-7 Uterine Contraction Pattern: Regular Uterine Tone Measurement Phase: Resting Uterine Contraction Intensity: Mild Extremities: normal Deep Tendon Reflex Grade: Normal +2 - Labs Labs: Abnormal Labs 02/20/18 02/20/18 02/20/18 05:39 10:57 16:47 RBC 3.20 L Hgb 9.1 L Hct 27.2 L RDW 16.4 H Seg Neuts % (Manual) 93.0 H Lymphocytes % (Manual) 4.0 L Lymphocytes # (Manual) 0.3 L POC Glucose 119 H Iron TIBC Total Creatine Kinase 139 H Vitamin B12 02/20/18 02/20/18 02/20/18 20:01 21:28 21:28 RBC Hgb Hct RDW Seg Neuts % (Manual) Lymphocytes % (Manual) Lymphocytes # (Manual) POC Glucose 118 H Iron 36 L TIBC 482 H Total Creatine Kinase Vitamin B12 209.2 L 02/20/18 22:37 RBC Hgb Hct RDW Seg Neuts % (Manual) Lymphocytes % (Manual) Lymphocytes # (Manual) POC Glucose 118 H Iron TIBC Total Creatine Kinase Vitamin B12 Laboratory Results - last 24 hr 02/20/18 02/20/18 02/20/18 05:39 10:57 16:47 POC Glucose 119 H Iron TIBC % Saturation Transferrin Total Creatine Kinase 139 H CK-MB (CK-2) 1.6 CK-MB (CK-2) Rel Index 1.1 Troponin T < 0.010 Vitamin B12 RPR Nonreactive 02/20/18 02/20/18 02/20/18 20:01 21:28 21:28 POC Glucose 118 H Iron 36 L TIBC 482 H % Saturation 7.47 Transferrin 371 Total Creatine Kinase CK-MB (CK-2) CK-MB (CK-2) Rel Index Troponin T Vitamin B12 209.2 L RPR 02/20/18 02/21/18 22:37 09:03 POC Glucose 118 H 100 Iron TIBC % Saturation Transferrin Total Creatine Kinase CK-MB (CK-2) CK-MB (CK-2) Rel Index Troponin T Vitamin B12 RPR
--- NOTE | 2018-02-21 11:00 | Consultation ---
History of Present Illness - Reason for Consult Consult date: 02/21/18 h/o MRSA UTI/ Requesting physician: BELÉN CHO - History of Present Illness 22 year old female with 35 weeks and recurrent UTIs with recent UTI presumedly "MRSA"; admitted on 02/19/2018 due to uterine contractions. Patient reports that she was c/o urinary frequency and back pain the last week of January 2018 and tested positive for UTI. She was given macrobid and clinically improved. She denies dysuria, hematuria. Denies previous UTIs or kidney stones. She received care at [facility] since around 30 weeks gestation, she was taking iron supplements. Upon review of micro records she has had several UAs consistent with UTI since 2013 and 3 urine cultures all positive for "normal skin magdaleno" > 100K in the past. Upon admission, temp 98.2, HR 101, R 18, BP 100/651. WBC 6.9. Hg 9.1. Plat 234. UA showed 4 wbc and moderate LE. UDS + THC. HIV neg. HBV serology neg. RPR neg. Past History Past Medical History: other (recurrent UTIs) Social history: lives with family, full code. denies: smoking, alcohol abuse, prescription drug abuse, IV drug use Medications and Allergies Allergies Allergy/AdvReac Type Severity Reaction Status Date / Time No Known Allergies Allergy Verified 09/12/14 16:54 Home Medications Medication Instructions Recorded Confirmed Last Taken Type Nitrofurantoin Macrocrystal 100 mg PO BID 10 Days #20 capsule 08/10/17 Unknown Rx [Nitrofurantoin] Active Meds: Active Medications Al Hydrox/Mg Hydrox/Simethicone (Alum-Mag Hydrox-Simeth [id number]/5ml) 30 ml PO Q4H PRN PRN Reason: Indigestion Last Admin: 02/21/18 08:00 Dose: 30 ml Documented by: Butorphanol Tartrate (Stadol) 2 mg IV Q2H PRN PRN Reason: Labor Pain Last Admin: 02/21/18 05:28 Dose: 2 mg Documented by: Famotidine (Pepcid) 20 mg IV BID [facility] Last Admin: 02/20/18 22:22 Dose: 20 mg Documented by: Ferrous Sulfate (Feosol) 325 mg PO BID [facility] Last Admin: 02/20/18 22:22 Dose: 325 mg Documented by: Lactated Ringer's (Lactated Ringers) 1,000 mls @ 125 mls/hr IV DIRECT ZEYNEP Last Admin: 02/20/18 15:45 Dose: 125 mls/hr Documented by: Nifedipine (Procardia*For Tocolysis Only*) 10 mg PO Q20MIN [facility] Last Admin: 02/21/18 08:00 Dose: 10 mg Documented by: Nitrofurantoin Macrocrystals (Macrobid) 100 mg PO Q12HR [facility] Stop: 02/21/18 23:59 Last Admin: 02/20/18 22:22 Dose: 100 mg Documented by: Ondansetron HCl (Zofran) 4 mg IV Q8H PRN PRN Reason: Nausea And Vomiting Last Admin: 02/20/18 16:28 Dose: 4 mg Documented by: Physical Examination - Physical Exam Narrative exam: Constitutional: Alert, cooperative in NAD Head, Ears, Nose: Normocephalic, atraumatic. External ears, nose normal Eyes: Conjunctivae/corneas clear. No icterus. No ptosis. Neck: Supple, no meningeal signs Cardiovascular: tachycardic Respiratory: Good air entry, clear to auscultation bilaterally GI: soft, + uterus Musculoskeletal: No pedal edema, no cyanosis. Skin: No rash or abscess Hem/Lymphatic: No palpable cervical or supraclavicular nodes. No lymphangitis Psych: Mood ok. Affect normal Neurological: Awake, alert, oriented. No gross abnormality - Constitutional Vitals: Vital Signs Temp Pulse Resp BP Pulse Ox 97.9 F 94 H 16 88/51 96 02/21/18 09:00 02/21/18 09:26 02/21/18 09:00 02/21/18 09:02 02/21/18 09:26 Temperature -Last 24 Hours Temperature 97.9 F Temperature 97.9 F Temperature 98.1 F Temperature 98.3 F Temperature 98.8 F Results - Labs CBC & Chem 7: 02/20/18 05:39 Labs: Abnormal lab results 02/20/18 02/20/18 02/20/18 Range/Units 10:57 16:47 20:01 POC Glucose 119 H 118 H (70-105) Iron (37-170) ug/dL TIBC (250-450) mcg/dL Total Creatine Kinase 139 H (30-135) units/L Vitamin B12 (211-911) pg/mL 02/20/18 02/20/18 02/20/18 Range/Units 21:28 21:28 22:37 POC Glucose 118 H (70-105) Iron 36 L (37-170) ug/dL TIBC 482 H (250-450) mcg/dL Total Creatine Kinase (30-135) units/L Vitamin B12 209.2 L (211-911) pg/mL Assessment and Plan Cultures: Assessment: 22 year old female with 35 weeks and recurrent UTIs with recent UTI presumedly "MRSA"; admitted on 02/19/2018 due to uterine contractions: 1) Recent UTI with history of recurrent UTI: clinically asymptomatic - I was informed by nursing staff that the outpatient urine cx was positive for MRSA, however I could not find any confirmation. - patient tested positive for UTI last week of Jan 2018 treated with macrobid for 7 days - Admission UA is not consistent with UTI - review of [facility] micro records noted several UAs consistent with UTI since 2013 and 3 urine cultures all positive for "normal skin magdaleno" > 100K in the past. No evidence of MRSA. 2) 35 weeks : UDS + THC. HIV neg. HBV serology neg. RPR neg. Recommendations: - check urine culture to screen for asymptomatic bacteriuria / MRSA - contact isolation for MRSA - send MRSA nares screening if negative stop contact isolation - no need for systemic antibiotics as for now will follow [facility] C: [phone] O: [phone] F: [phone]
[2018-02-21] MEDS: MACROBID PO SCH ×2 (11:20→21:37)
[2018-02-21] MEDS: FEOSOL PO SCH ×2 (11:20→21:36)
[2018-02-21] MEDS: PEPCID IV SCH ×2 (11:21→21:36)
[2018-02-21] MEDS: LACTATED RINGERS 1,000 ML IV SCH ×2 (12:10→20:42)
--- NOTE | 2018-02-21 20:50 | Progress Note ---
Assessment and Plan Assessment and plan: (1) Chest pain Current Visit: Yes Status: Acute Qualifiers: Chest pain type: unspecified Qualified Code(s): R07.9 - Chest pain, unspecified Plan to address problem: Initial enzymes negative EKG normal No need for Lexiscan or stress test Clinical picture consistent with reflux gastritis/esophagitis Will initiate on famotidine and Maalox (2) 35 weeks gestation of Current Visit: Yes Status: Acute Plan to address problem: Deferred to [facility] (3) Anemia Current Visit: Yes Status: Chronic Qualifiers: Anemia type: unspecified type Qualified Code(s): D64.9 - Anemia, unspecified Plan to address problem: Anemia workup Serum iron levels folic acid and vitamin B12 (4) DVT prophylaxis Current Visit: Yes Status: Acute Plan to address problem: SCDs on (5) Discharge planning issues Current Visit: Yes Status: Acute Plan to address problem: Patient's clinical picture consistent with gastritis and esophagitis No cardiac involvement Patient is medically cleared Hx of UTI mgt per ID, no evidence of UTI at present Hospitalist Physical - Constitutional Vitals: Temp Pulse Resp BP Pulse Ox 97.7 F 109 H 18 79/44 99 02/21/18 20:36 02/21/18 20:45 02/21/18 20:36 02/21/18 20:38 02/21/18 20:45 Results - Labs CBC & Chem 7: 02/20/18 05:39 Labs: Laboratory Last Values WBC 6.9 K/mm3 (4.5-11.0) 02/20/18 05:39 RBC 3.20 M/mm3 (3.65-5.03) L 02/20/18 05:39 Hgb 9.1 gm/dl (10.1-14.3) L 02/20/18 05:39 Hct 27.2 % (30.3-42.9) L 02/20/18 05:39 MCV 85 fl (79-97) 02/20/18 05:39 MCH 29 pg (28-32) 02/20/18 05:39 MCHC 34 % (30-34) 02/20/18 05:39 RDW 16.4 % (13.2-15.2) H 02/20/18 05:39 Plt Count 234 K/mm3 (140-440) 02/20/18 05:39 Add Manual Diff Complete 02/20/18 05:39 Total Counted 100 02/20/18 05:39 Seg Neutrophils % Planning Management It Specialist 02/20/18 05:39 Seg Neuts % (Manual) 93.0 % (40.0-70.0) H 02/20/18 05:39 Band Neutrophils % 2.0 % 02/20/18 05:39 Lymphocytes % (Manual) 4.0 % (13.4-35.0) L 02/20/18 05:39 Reactive Lymphs % (Man) 0 % 02/20/18 05:39 Monocytes % (Manual) 1.0 % (0.0-7.3) 02/20/18 05:39 Eosinophils % (Manual) 0 % (0.0-4.3) 02/20/18 05:39 Basophils % (Manual) 0 % (0.0-1.8) 02/20/18 05:39 Metamyelocytes % 0 % 02/20/18 05:39 Myelocytes % 0 % 02/20/18 05:39 Promyelocytes % 0 % 02/20/18 05:39 Blast Cells % 0 % 02/20/18 05:39 Nucleated RBC % Not Reportable 02/20/18 05:39 Seg Neutrophils # Man 6.4 K/mm3 (1.8-7.7) 02/20/18 05:39 Band Neutrophils # 0.1 K/mm3 02/20/18 05:39 Lymphocytes # (Manual) 0.3 K/mm3 (1.2-5.4) L 02/20/18 05:39 Abs React Lymphs (Man) 0.0 K/mm3 02/20/18 05:39 Monocytes # (Manual) 0.1 K/mm3 (0.0-0.8) 02/20/18 05:39 Eosinophils # (Manual) 0.0 K/mm3 (0.0-0.4) 02/20/18 05:39 Basophils # (Manual) 0.0 K/mm3 (0.0-0.1) 02/20/18 05:39 Metamyelocytes # 0.0 K/mm3 02/20/18 05:39 Myelocytes # 0.0 K/mm3 02/20/18 05:39 Promyelocytes # 0.0 K/mm3 02/20/18 05:39 Blast Cells # 0.0 K/mm3 02/20/18 05:39 WBC Morphology Not Reportable 02/20/18 05:39 Hypersegmented Neuts Not Reportable 02/20/18 05:39 Hyposegmented Neuts Not Reportable 02/20/18 05:39 Hypogranular Neuts Not Reportable 02/20/18 05:39 Smudge Cells Not Reportable 02/20/18 05:39 Toxic Granulation Not Reportable 02/20/18 05:39 Toxic Vacuolation Not Reportable 02/20/18 05:39 Dohle Bodies Not Reportable 02/20/18 05:39 Pelger-Huet Anomaly Not Reportable 02/20/18 05:39 Yoselin Rods Not Reportable 02/20/18 05:39 Platelet Estimate Consistent w auto 02/20/18 05:39 Clumped Platelets Not Reportable 02/20/18 05:39 Plt Clumps, EDTA Not Reportable 02/20/18 05:39 Large Platelets Not Reportable 02/20/18 05:39 Giant Platelets Not Reportable 02/20/18 05:39 Platelet Satelliting Not Reportable 02/20/18 05:39 Plt Morphology Comment Not Reportable 02/20/18 05:39 RBC Morphology Not Reportable 02/20/18 05:39 Dimorphic RBCs Not Reportable 02/20/18 05:39 Polychromasia Not Reportable 02/20/18 05:39 Hypochromasia Not Reportable 02/20/18 05:39 Poikilocytosis Not Reportable 02/20/18 05:39 Anisocytosis 1+ 02/20/18 05:39 Microcytosis Not Reportable 02/20/18 05:39 Macrocytosis Not Reportable 02/20/18 05:39 Spherocytes Not Reportable 02/20/18 05:39 Pappenheimer Bodies Not Reportable 02/20/18 05:39 Sickle Cells Not Reportable 02/20/18 05:39 Target Cells Not Reportable 02/20/18 05:39 Tear Drop Cells Not Reportable 02/20/18 05:39 Ovalocytes Not Reportable 02/20/18 05:39 Helmet Cells Not Reportable 02/20/18 05:39 Arroyo-Rosalie Bodies Not Reportable 02/20/18 05:39 [place] Rings Not Reportable 02/20/18 05:39 Mitch Cells Not Reportable 02/20/18 05:39 Bite Cells Not Reportable 02/20/18 05:39 Crenated Cell Not Reportable 02/20/18 05:39 Elliptocytes Not Reportable 02/20/18 05:39 Acanthocytes (Spur) Not Reportable 02/20/18 05:39 Rouleaux Not Reportable 02/20/18 05:39 Hemoglobin C Crystals Not Reportable 02/20/18 05:39 Schistocytes Not Reportable 02/20/18 05:39 Malaria parasites Not Reportable 02/20/18 05:39 Ag Bodies Not Reportable 02/20/18 05:39 Hem Pathologist Commnt No 02/20/18 05:39 POC Glucose 126 (70-105) H 02/21/18 16:55 Iron 36 ug/dL (37-170) L 02/20/18 21:28 TIBC 482 mcg/dL (250-450) H 02/20/18 21:28 % Saturation 7.47 % 02/20/18 21:28 Transferrin 371 mg/dl (192-382) 02/20/18 21:28 Total Creatine Kinase 139 units/L (30-135) H 02/20/18 16:47 CK-MB (CK-2) 1.6 ng/mL (0.0-4.0) 02/20/18 16:47 CK-MB (CK-2) Rel Index 1.1 (0-4) 02/20/18 16:47 Troponin T < 0.010 ng/mL (0.00-0.029) 02/20/18 16:47 Vitamin B12 209.2 pg/mL (211-911) L 02/20/18 21:28 Urine Color Yellow (Yellow) 02/19/18 22:50 Urine Turbidity Clear (Clear) 02/19/18 22:50 Urine pH 7.0 (5.0-7.0) 02/19/18 22:50 Ur Specific [place] 1.006 (1.003-1.030) 02/19/18 22:50 Urine Protein <15 mg/dl mg/dL (Negative) 02/19/18 22:50 Urine Glucose (UA) Neg mg/dL (Negative) 02/19/18 22:50 Urine Ketones Neg mg/dL (Negative) 02/19/18 22:50 Urine Blood Neg (Negative) 02/19/18 22:50 Urine Nitrite Neg (Negative) 02/19/18 22:50 Urine Bilirubin Neg (Negative) 02/19/18 22:50 Urine Urobilinogen 2.0 mg/dL (<2.0) 02/19/18 22:50 Ur Leukocyte Esterase Mod (Negative) 02/19/18 22:50 Urine WBC (Auto) 4.0 /HPF (0.0-6.0) 02/19/18 22:50 Urine RBC (Auto) 3.0 /HPF (0.0-6.0) 02/19/18 22:50 U Epithel Cells (Auto) < 1.0 /HPF (0-13.0) 02/19/18 22:50 Urine Mucus Few /HPF 02/19/18 22:50 Urine Opiates Screen Presumptive negative 02/19/18 22:50 Urine Methadone Screen Presumptive negative 02/19/18 22:50 Ur Barbiturates Screen Presumptive negative 02/19/18 22:50 Ur Phencyclidine Scrn Presumptive negative 02/19/18 22:50 Ur Amphetamines Screen Presumptive negative 02/19/18 22:50 U Benzodiazepines Scrn Presumptive negative 02/19/18 22:50 Urine Cocaine Screen Presumptive negative 02/19/18 22:50 U Marijuana (THC) Screen Presumptive positive 02/19/18 22:50 Drugs of Abuse Note Disclamer 02/19/18 22:50 RPR Nonreactive (Nonreactive) 02/20/18 05:39 Hep Bs Antigen Non-reactive (Negative) 02/20/18 05:39 HIV 1&2 Antibody Rapid Non react (Non React) 02/20/18 05:39 HIV P24 Antigen Non react (Non React) 02/20/18 05:39 Blood Type A POSITIVE 02/20/18 05:42 Antibody Screen Negative 02/20/18 05:42 Nutrition/Malnutrition Assess - Dietary Evaluation Nutrition/Malnutrition Findings: Nutrition Notes Start: 02/21/18 11:26 Freq: Status: Active Protocol: Document 02/21/18 11:26 JOSÉ MIGUEL (Rec: 02/21/18 11:36 JOSÉ MIGUEL [id number]) Co-Sign 02/21/18 11:26 LP Nutrition Notes Need for Assessment generated from: MD Order Initial or Follow up Brief Note Other Pertinent Diagnosis Gestational Diabetes Current Diet Consistent Carb Subjective/Other Information MD consult for diabetes education. Pt stated she did not have gestational diabetes with prior two pregnancies. Pt stated she had no prior knowledge about diabetes. Pt to follow up at [facility] office regarding assistance. She breastfed previous infants. Encouraged pt to continue vitamins post-delivery. #1 Nutrition Diagnoses Food and nutrition-related knowledge deficit Etiology Lack of DM education As Evidenced by Signs and Symptoms Newly diagnosed diabetes Nutrition Intervention Teaching Recipient Patient Learning Readiness Good Teaching Methods Discussion Handout Response to Teaching Verbalize understanding Education Handouts Provided Carb counting, A1C, Nutrition for Barriers to Learning Motivation Physical Age related Emotional Financial Environmental Social RD phone number provided Yes Patient aware of follow up options Yes Revisit per MD consult or patient Sign Off request:
[2018-02-22] MEDS: STADOL IV PRN (05:21)
[2018-02-22] MEDS: LACTATED RINGERS 1,000 ML IV SCH (05:24)
[2018-02-22 08:42] VITALS: BP 90/54
--- NOTE | 2018-02-22 09:13 | Progress Note ---
Assessment and Plan - Patient Problems (1) 35 weeks gestation of Current Visit: Yes Status: Acute (2) uterine contractions Current Visit: Yes Status: Acute Plan to address problem: Patient has stopped radha and made no cervical changes. Patient can be discharged home. Labor precautions given. Patient to follow up in office tomorrow. (3) Reflux esophagitis Current Visit: Yes Status: Acute Plan to address problem: Continue pepcid 20 mg QD. Subjective - Subjective Date of service: 02/22/18 Principal diagnosis: Contractions Interval history: Patient is a 22 year old who was admitted at 35+ weeks with contractions 2 days ago. Her cervix was 3 cm/50%/-3. She received IV hydration and procardia. Her contractions eventually stopped. She has made no cervical changes for 2 days. She complained of having chest pain after her admission. design sales consultant saw her and did a full cardiac workup which was negative. She was treated for reflux. She became asymptomatic. tracing has been CAT1. Sonogram showed normal GAURI and BPP 8/8. This AM, patient was found lying comfortably in bed. Cervix is 3cm/50%/-3, firm. No bleeding. Patient reports: movement normal, contractions, no loss of fluid, no vaginal bleeding Objective - Vital Signs Vital Signs: Vital Signs - 12hr 02/21/18 02/21/18 02/21/18 21:40 22:41 23:42 Pulse Rate 94 H 83 86 Respiratory Rate Blood Pressure 92/57 92/53 92/54 02/22/18 02/22/18 02/22/18 00:40 02:41 03:40 Pulse Rate 88 82 84 Respiratory Rate Blood Pressure 86/52 79/43 83/44 02/22/18 02/22/18 02/22/18 04:40 05:21 05:40 Pulse Rate 93 H 85 Respiratory 18 Rate Blood Pressure 85/50 89/51 02/22/18 02/22/18 02/22/18 05:51 06:40 07:40 Pulse Rate 77 75 Respiratory 18 Rate Blood Pressure 104/59 94/56 02/22/18 08:40 Pulse Rate 85 Respiratory Rate Blood Pressure 90/54 - Exam Cardiovascular: Normal S1, Normal S2 Lungs: Clear to auscultation Vulva: both: normal FHR: category 1 Uterine Contraction Monitor Mode: External Cervical Dilatation: 3 Cervical Effacement Percentage: 50 station: -3 Uterine Contraction Pattern: Absent Deep Tendon Reflex Grade: Normal +2 - Labs Labs: Abnormal Labs 02/20/18 02/20/18 02/20/18 05:39 10:57 16:47 RBC 3.20 L Hgb 9.1 L Hct 27.2 L RDW 16.4 H Seg Neuts % (Manual) 93.0 H Lymphocytes % (Manual) 4.0 L Lymphocytes # (Manual) 0.3 L POC Glucose 119 H Iron TIBC Total Creatine Kinase 139 H Vitamin B12 02/20/18 02/20/18 02/20/18 20:01 21:28 21:28 RBC Hgb Hct RDW Seg Neuts % (Manual) Lymphocytes % (Manual) Lymphocytes # (Manual) POC Glucose 118 H Iron 36 L TIBC 482 H Total Creatine Kinase Vitamin B12 209.2 L 02/20/18 02/21/18 02/21/18 22:37 12:08 16:55 RBC Hgb Hct RDW Seg Neuts % (Manual) Lymphocytes % (Manual) Lymphocytes # (Manual) POC Glucose 118 H 116 H 126 H Iron TIBC Total Creatine Kinase Vitamin B12 Laboratory Results - last 24 hr 02/21/18 02/21/18 02/22/18 12:08 16:55 05:32 POC Glucose 116 H 126 H 100 - Results US- obstetric: report reviewed
--- NOTE | 2018-02-22 09:16 | Discharge Summary ---
Providers - Providers Date of Admission: 02/21/18 12:18 Date of discharge: 02/22/18 Attending physician: BELÉN CHO MD 02/20/18 11:42 Consult to Dietitian/Nutrition [CONS] Routine Physician Instructions: Reason For Exam: Reason for Consult: Diet education 02/20/18 16:13 Consult to Physician [CONS] Stat Comment: Consulting Provider: JESSICA YANEZ Physician Instructions: Reason For Exam: chest pain, 35 weeks gestation, Anemia 02/21/18 09:02 Consult to Physician [CONS] Stat Comment: Consulting Provider: ARPIT HERNANDEZ Physician Instructions: Reason For Exam: HX OF MRSA Primary care physician: BELÉN CHO MD Hospitalization Reason for admission: labor Procedure: other (Observation, IV fluids, antibiotics for GBS prophylaxis, procardia for tocolysis.) Hospital course: Patient is a 22 year old who was admitted at 35+ weeks with contractions 2 days ago. Her cervix was 3 cm/50%/-3. She received IV hydration and procardia. Her contractions eventually stopped. She has made no cervical changes for 2 days. She complained of having chest pain after her admission. executive talent acquisition consultant saw her and did a full cardiac workup which was negative. She was treated for reflux. She became asymptomatic. tracing has been CAT1. Sonogram showed normal GAURI and BPP 8/8. This AM, patient was found lying comfortably in bed. Cervix is 3cm/50%/-3, firm. No bleeding. Patient reports: movement normal, contractions, no loss of fluid, no vaginal bleeding. Condition at discharge: Stable Disposition: DC-01 TO HOME OR SELFCARE - Discharge Diagnoses (1) 35 weeks gestation of Status: Acute (2) uterine contractions Status: Acute (3) Reflux esophagitis Status: Acute Plan - Discharge Medications Prescriptions: Famotidine [Pepcid] 20 mg PO QHS 10 Days #30 tablet - Provider Discharge Summary Activity: routine Diet: routine Instructions: routine Additional instructions: [] Smoking cessation referral if applicable(refer to patient education folder for contact #) [] Refer to [facility] Booklet Call your doctor immediately for: * Fever > 100.5 * Heavy vaginal bleeding ( >1 pad per hour) * Severe persistent headache * Shortness of breath * Reddened, hot, painful area to leg or breast * Drainage or odor from incision. * Keep incision clean and dry at all times and follow doctor's instructions regarding bathing/showering - Follow up plan Follow up: BELÉN CHO MD [Primary Care Provider] - 7 Days
== END 2018-02-22 09:54 | disposition home or self-care (01) | DRG 781 ==
LOC: TRG 22:01 → LD 02-20 05:06 → OBSVTOIN 02-21 12:18
PROVIDERS: ADMIT Obstetrics & Gynecology; ATTEND Obstetrics & Gynecology
DX: O99.613 Diseases of the digestive system complicating pregnancy, third trimester (principal); O60.03 Preterm labor without delivery, third trimester; K21.0 Gastro-esophageal reflux disease with esophagitis; O24.419 Gestational diabetes mellitus in pregnancy, unspecified control; D64.9 Anemia, unspecified; O99.013 Anemia complicating pregnancy, third trimester; Z3A.35 35 weeks gestation of pregnancy; Z87.440 Personal history of urinary (tract) infections; R07.9 Chest pain, unspecified
CPT/HCPCS: 36415; 59025; 76816; 80307; 81001; 82550; 82553; 82607; 82747; 82962; 83550; 84484; 85007; 85025; 86592; 86706; 86850; 86900; 86901; 87086; 87116; 87806; 93005; 93010; 96360; 96361; G0378; J0290; J0595; J0702; J2405; J3010; J3105; J7120

== ENCOUNTER 2018-03-08 12:33 | Outpatient (CLI) | payer MEDICAID | END 2018-03-08 17:57 | disposition home or self-care (01) | LOC: TRG 12:33 | CPT/HCPCS: 59025 ==

== ENCOUNTER 2018-03-12 15:52 | Inpatient (IN) | payer MEDICAID ==
[2018-03-12] MEDS ORDERED: SUBLIMAZE IV PRN (15:55)
[2018-03-12] MEDS ORDERED: BRETHINE SUB-Q PRN (15:55)
[2018-03-12] MEDS ORDERED: LACTATED RINGERS 1,000 ML IV SCH (16:00)
[2018-03-12] MEDS ORDERED: AMPICILLIN/NS 2 GM/100 ML 2 GM/100 ML BAG IV ONE ×2 (16:00→17:00)
[2018-03-12] MEDS ORDERED: LACTATED RINGERS 1,000 ML ONE (16:00)
--- NOTE | 2018-03-12 16:08 | History and Physical Report ---
History of Present Illness Date of examination: 03/12/18 Date of admission: 03/12/18 15:52 Chief complaint: Contractions all morning. History of present illness: 22 year old presents to L&D in active labor with advanced cervical dilation (7 cm upon arrival to triage). Patient states contractions began this morning. Patient denies vaginal bleeding or leaking of fluid. Patient reports active movement. Patient states she has been receiving care from [facility]. records are available. LMP 06/19/2017. EDC 03/26/2018. significant for Gestational Diabetes (patient states she was just diagnosed and has been on ADA diet but no medications; she states her blood sugars have not been well controlled and no record of glucose logs on chart); late transfer to [facility] from [facility]; insufficient care; trichomonas (treated during and MONICA positive); UTI (treated, MONICA showed MRSA on 01/26); anemia (supplemented with iron); + GBS. labs are as follows: A+, antibody screen negative, pap negative, rubella immune, RPR nonreactive, hepatitis B surface antigen negative, HIV negative, GC/CT negative, trich positive (MONICA positive), abnormal 1 hour sugar test and abnormal 3 hour OGTT, GBS positive, MRSA positive (urine). Past History Past Medical History: other (previous use of marijuana, pt. 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 denies: abnormal PAP smear, chlamydia, fibroids, gonorrhea, hepatitis B, hepatitis C, herpes, HIV, syphilis Family/Genetic History: none Social history: full code. denies: smoking, alcohol abuse, prescription drug abuse, IV drug use - Obstetrical History Expected Date of Delivery: 03/26/18 Actual Gestation: 38 Week(s) 0 Day(s) : 3 Para: 2 Hx # Term Pregnancies: 2 Number of Pregnancies: 0 Spontaneous Abortions: 0 Induced : 0 Number of Living Children: 2 Medications and Allergies Allergies Allergy/AdvReac Type Severity Reaction Status Date / Time No Known Allergies Allergy Verified 09/12/14 16:54 Home Medications Medication Instructions Recorded Confirmed Last Taken Type Nitrofurantoin Macrocrystal 100 mg PO BID 10 Days #20 capsule 08/10/17 Unknown Rx [Nitrofurantoin] Famotidine [Pepcid] 20 mg PO QHS 10 Days #30 tablet 02/21/18 Unknown Rx Active Meds: Active Medications Ephedrine Sulfate (Ephedrine Sulfate) 10 mg IV Q2M PRN PRN Reason: Hypotension Fentanyl (Sublimaze) 100 mcg IV Q2H PRN PRN Reason: Labor Pain Ampicillin Sodium (Polycillin/Ns 2 Gm/100 Ml) 2 gm in 100 mls @ 100 mls/hr IV ONCE ONE; Protocol Stop: 03/12/18 16:54 Lactated Ringer's (Lactated Ringers) 1,000 mls @ 125 mls/hr IV DIRECT ZEYNEP Oxytocin/Sodium Chloride (Pitocin/Ns 20 Unit/1000ml Drip) 20 units in 1,000 mls @ 125 mls/hr IV DIRECT ZEYNEP Ampicillin Sodium (Ampicillin/Ns 1 Gm/50 Ml) 1 gm in 50 mls @ 100 mls/hr IV Q4HR ZEYNEP; Protocol Lidocaine (Xylocaine 2%) 20 ml INFILTRATI ONCE ONE Stop: 03/12/18 15:56 Terbutaline Sulfate (Brethine) 0.25 mg SUB-Q ONCE PRN PRN Reason: Hyperstimulation/Hypertonicity Review of Systems All systems: negative (contractions since this morning) - Physical Exam Abdomen: Positive: normal appearance, soft. Negative: distention, tenderness, guarding, rigidity Genitourinary (Female): Positive: normal external genitalia, normal perenium. Negative: perineal/vulvar lesions Vagina: Positive: normal moisture Uterus: Positive: enlarged (size=dates) Anus/Rectum: Positive: normal perianal skin Extremities: Positive: normal. Negative: edema - Obstetrical FHR: category 1 Uterine Contraction Monitor Mode: External Cervical Dilatation: 7 Cervical Effacement Percentage: 95 station: -1 Uterine Contraction Pattern: Regular Uterine Contraction Intensity: Moderate Results Result Diagrams: 03/12/18 16:00 All other labs normal. Assessment and Plan A: at 38 weeks gestation. Active labor with advanced cervical dilation. GBS positive. MRSA positive. History of trich (not cured). Gestational diabetes (patient states not controlled). P: Admit. GBS prophylaxis. Epidural if desired and if time. Labs. Blood sugars. Treat with Flagyl for trich. Continuous EFM. Notify nursery re: MRSA. MRSA precautions. NICU to attend delivery due to possible uncontrolled GDM.
[2018-03-12 16:19] LABS: Hematocrit 33.4 % (30.3-42.9); Hemoglobin 10.9 gm/dl (10.1-14.3); Mean Corpuscular HGB Conc 33 % (30-34); Mean Corpuscular Volume 83 fl (79-97); Platelet Count 295 K/mm3 (140-440); Red Blood Count 4.02 M/mm3 (3.65-5.03); Red Cell Distribution Width 17.4 % (13.2-15.2)
[2018-03-12] MEDS ORDERED: FLAGYL PO ONE (17:00)
[2018-03-12] MEDS ORDERED: XYLOCAINE 2% INFILTRATI ONE (17:00)
[2018-03-12] MEDS ORDERED: NARCAN 2 MG/2 ML IV PRN (17:24)
--- NOTE | 2018-03-12 17:24 | Anesthesia Consultation ---
Anesthesia Consult and Med Hx Date of service: 03/12/18 - Airway Anesthetic Teeth Evaluation: Good ROM Head & Neck: Adequate Mental/Hyoid Distance: Adequate Mallampati Class: Class II Intubation Access Assessment: Probably Good - Pre-Operative Health Status ASA Pre-Surgery Classification: ASA2 Proposed Anesthetic Plan: Epidural, Spinal - Pulmonary Hx Asthma: No COPD: No Hx Pneumonia: No - Cardiovascular System Hx Hypertension: No - Central Nervous System Hx Seizures: No Hx Psychiatric Problems: No - Endocrine Hx Renal Disease: No Hx End Stage Renal Disease: No Hx Hypothyroidism: No Hx Hyperthyroidism: No - Hematic Hx Anemia: No Hx Sickle Cell Disease: No - Other Systems Hx Alcohol Use: No
[2018-03-12] MEDS: fentaNYL-BUPIV 2 MCG/ML-0.125% 200 MCG/100 ML BAG EPIDURAL SCH ×2 (18:01→18:56)
[2018-03-12] MEDS: PITOCin/NS 20 UNIT/1000ML DRIP 20 UNITS/1,000 ML BAG IV SCH ×2 (18:50→19:57)
[2018-03-12] MEDS ORDERED: PHENERGAN PO PRN (19:08)
[2018-03-12] MEDS ORDERED: MILK OF MAGNESIA PO PRN (19:08)
[2018-03-12] MEDS ORDERED: TUCKS PAD TP PRN (19:08)
[2018-03-12] MEDS ORDERED: LANSINOH TP PRN (19:08)
[2018-03-12] MEDS ORDERED: ZOFRAN IV PRN (19:08)
--- NOTE | 2018-03-12 19:21 | Procedure Note ---
OB Delivery Note - Delivery Date of Delivery: 03/12/18 Surgeon: MARCIO RODRIGUEZ Estimated blood loss: 200cc - Vaginal Delivery presentation: vertex Delivery position: OA Delivery induction: none Delivery monitor: external FHT, external uterine Route of delivery: Delivery placenta: spontaneous Delivery cord: 3 umbilical vessels Episiotomy: none Delivery laceration: none Anesthesia: epidural Delivery comments: Spontaneous vaginal delivery of liveborn male weighing 7 lb. 4 oz. at 18:45 over intact perineum with apgars 9/9. Baby placed immediately on mother's chest after delivery and dried and bulb suctioned. Spontaneous cry and respirations. 3 vessel cord double clamped and cut after cessation of pulsation. Spontaneous delivery of intact placenta and membranes. EBL 200 cc. Pitocin to IV fluids after delivery of placenta. Fundus firm and midline. No lacerations noted. Vaginal sweep negative. Sponge count correct. Mother and baby stable.
[2018-03-12 19:25] LABS: Amphetamine Screen,Urine PRESUMPTIVE NEGATIVE; Benzodiazepines Screen,Urine PRESUMPTIVE NEGATIVE; Cannabinoid Screen,Urine PRESUMPTIVE NEGATIVE; Cocaine Screen,Urine PRESUMPTIVE NEGATIVE; Methadone Screen,Urine PRESUMPTIVE NEGATIVE; Opiate Screen,Urine PRESUMPTIVE NEGATIVE
[2018-03-12] MEDS ORDERED: SODIUM CHLORIDE FLUSH SYRINGE 10 ML IV NR (20:00)
[2018-03-12] MEDS ORDERED: AMPICILLIN/NS 1 GM/50 ML 1 GM/50 ML BAG IV SCH (21:00)
[2018-03-12] MEDS: COLACE PO SCH (22:53)
[2018-03-12] MEDS: IBUPROFEN PO SCH (22:53)
[2018-03-12] MEDS: FEOSOL PO SCH (22:53)
[2018-03-13] MEDS: IBUPROFEN PO SCH ×3 (05:51→17:56)
[2018-03-13 07:34] LABS: Hematocrit 24.4 % (30.3-42.9); Hemoglobin 8.2 gm/dl (10.1-14.3)
[2018-03-13] MEDS: NORCO 5/325 PO PRN ×2 (09:29→20:24)
--- NOTE | 2018-03-13 11:46 | Progress Note ---
Assessment and Plan - Patient Problems (1) Status post normal vaginal delivery Current Visit: Yes Status: Acute Plan to address problem: PPD 1 - stable Continue routine PP orders Discharge to home on 03/14/18 Follow up at [facility] in 6 weeks for exam (2) Anemia affecting Current Visit: Yes Status: Acute Qualifiers: Trimester: third trimester Qualified Code(s): O99.013 - Anemia complicating , third trimester Plan to address problem: Asymptomatic Continue iron therapy (3) Gestational diabetes mellitus (GDM) Current Visit: No Status: Acute Qualifiers: Gestational diabetes mellitus control: diet-controlled Trimester: third trimester Qualified Code(s): O24.410 - Gestational diabetes mellitus in , diet controlled Plan to address problem: Blood Glucose 82, HgbA1c 4.8 Continue routine accuchecks Subjective - Subjective Date of service: 03/13/18 Principal diagnosis: PPD #1; s/p Patient reports: appetite normal, voiding normally, pain well controlled, ambulating normally Neche: doing well, other (breast and bottle feeding) Objective - Vital Signs Latest vital signs: Vital Signs Temp Pulse Resp BP BP Pulse Ox 03/13/18 09:29 20 03/13/18 08:29 97.9 F 64 18 89/53 03/13/18 04:00 98.5 F 72 16 102/65 03/13/18 00:31 98.1 F 68 18 96/61 03/12/18 22:08 98.8 F 70 20 113/79 03/12/18 20:05 65 103/68 03/12/18 19:49 69 98/55 03/12/18 19:34 69 97/56 03/12/18 19:20 86 102/59 03/12/18 19:04 83 108/58 03/12/18 19:03 96.7 F L 90 18 97/56 97/56 03/12/18 18:40 98 H 100 03/12/18 18:36 96 H 103/55 03/12/18 18:35 82 100 03/12/18 18:30 94 H 100 03/12/18 18:29 91 H 94/58 03/12/18 18:25 112 H 100 03/12/18 18:20 100 H 99/61 100 03/12/18 18:15 92 H 100 03/12/18 18:10 94 H 104/57 100 03/12/18 18:08 193 H 169/118 03/12/18 18:05 90 99 03/12/18 18:00 84 99 03/12/18 17:55 85 100 03/12/18 17:50 67 100 03/12/18 17:47 75 103/59 03/12/18 17:45 77 101/59 99 03/12/18 17:44 79 104/62 03/12/18 17:42 85 97/52 03/12/18 17:40 90 99 03/12/18 17:39 78 103/55 03/12/18 17:38 87 90 03/12/18 17:35 83 93/52 03/12/18 17:34 86 99 03/12/18 17:33 89 100/60 03/12/18 17:31 86 99/63 03/12/18 17:29 92 H 100 03/12/18 17:24 85 100 03/12/18 17:19 99 H 98 03/12/18 17:15 84 103/64 03/12/18 17:14 77 89 03/12/18 16:34 97 F L 16 03/12/18 16:15 16 03/12/18 16:11 100 H 99/64 Intake and Output 03/12/18 03/13/18 03/13/18 23:59 07:59 15:59 Intake Total 259.583 240 360 Output Total 800 Balance 259.583 -560 360 Intake: IV 139.583 PITOCin/NS 20 UNIT/1000ML 139.583 DRIP 20 units In 1,000 ml @ 125 mls/hr IV DIRECT ZEYNEP Rx#:[id number] Oral 360 Intake, Free Water 120 240 Output: Urine 800 Void 800 Other: Total, Intake Amount 360 Total, Output Amount 400 # Voids Void 1 Weight 58.513 kg Estimated Blood Loss 200 - Exam Cardiovascular: Present: Regular rate Lungs: Present: Clear to auscultation Abdomen: Present: normal appearance, soft Vulva: both: normal Uterus: Present: normal, firm, fundal height below umbilicus Extremities: Present: normal Comments: small lochia - Labs Labs: Abnormal lab results 03/12/18 03/13/18 Range/Units 16:00 07:02 Hgb 8.2 L (10.1-14.3) gm/dl Hct 24.4 L D (30.3-42.9) % MCH 27 L (28-32) pg RDW 17.4 H (13.2-15.2) %
[2018-03-13] MEDS: FEOSOL PO SCH ×2 (11:59→22:06)
--- NOTE | 2018-03-13 12:06 | Discharge Summary ---
Providers - Providers Date of Admission: 03/12/18 15:52 Date of discharge: 03/14/18 Attending physician: BELÉN CHO MD Primary care physician: BELÉN CHO MD Hospitalization Reason for admission: active labor, IUP at term Delivery: Episiotomy: none Laceration: none Other procedures: none complications: none Discharge diagnosis: IUP at term delivered [place] baby: male Hospital course: Uncomplicated Condition at discharge: Stable Disposition: OR-01 TO HOME OR SELFCARE - Discharge Diagnoses (1) Status post normal vaginal delivery Status: Acute (2) Anemia affecting Status: Acute Qualifiers: Trimester: third trimester Qualified Code(s): O99.013 - Anemia complicating , third trimester Comment: Asymptomatic Continue iron therapy (3) Gestational diabetes mellitus (GDM) Status: Acute Qualifiers: Gestational diabetes mellitus control: diet-controlled Trimester: third trimester Qualified Code(s): O24.410 - Gestational diabetes mellitus in , diet controlled Comment: Blood glucose stable Plan - Provider Discharge Summary Activity: routine, no sex for 6 weeks, no heavy lifting 4 weeks, no strenuous exercise Diet: routine Instructions: routine Additional instructions: [] Smoking cessation referral if applicable(refer to patient education folder for contact #) [] Refer to [facility] Booklet Call your doctor immediately for: * Fever > 100.5 * Heavy vaginal bleeding ( >1 pad per hour) * Severe persistent headache * Shortness of breath * Reddened, hot, painful area to leg or breast * Drainage or odor from incision. * Keep incision clean and dry at all times and follow doctor's instructions regarding bathing/showering - Follow up plan Follow up: BELÉN CHO MD [Primary Care Provider] - 6 Weeks (Follow up at [facility] in 6 weeks for exam)
[2018-03-13] MEDS: COLACE PO SCH (22:06)
[2018-03-14] MEDS: IBUPROFEN PO SCH ×3 (01:57→15:04)
[2018-03-14] MEDS: FEOSOL PO SCH (09:53)
[2018-03-14] MEDS: COLACE PO SCH (09:54)
[2018-03-14 16:59] VITALS: BP 95/61
== END 2018-03-14 19:15 | disposition home or self-care (01) | DRG 775 ==
LOC: LD 15:52 → OB 20:54
PROVIDERS: ADMIT Obstetrics & Gynecology; ATTEND Obstetrics & Gynecology
PROC: 10E0XZZ Delivery of Products of Conception, External Approach (ICD-10-PCS; principal; 2018-03-12)
PROC: 3E0R3BZ Introduction of Anesthetic Agent into Spinal Canal, Percutaneous Approach (ICD-10-PCS; 2018-03-12)
PROC: 00HU33Z Insertion of Infusion Device into Spinal Canal, Percutaneous Approach (ICD-10-PCS; 2018-03-12)
DX: O24.420 Gestational diabetes mellitus in childbirth, diet controlled (principal); O99.824 Streptococcus B carrier state complicating childbirth; O99.02 Anemia complicating childbirth; D64.9 Anemia, unspecified; Z3A.38 38 weeks gestation of pregnancy; Z37.0 Single live birth
CPT/HCPCS: 36415; 80307; 82962; 83036; 85014; 85018; 85027; 86592; 86803; 86850; 86900; 86901; 88307; G0378; A6250; J0290; J2590; J3010; J7120

== ENCOUNTER 2019-09-27 03:28 | Outpatient (CLI) | payer MEDICAID ==
[2019-09-27 03:42] VITALS: BP 115/72
== END 2019-09-27 08:27 | disposition home or self-care (01) ==
LOC: TRG 03:28 → APU 03:34 → TRG 08:27
PROVIDERS: ATTEND Obstetrics & Gynecology
DX: O47.1 False labor at or after 37 completed weeks of gestation (principal); Z3A.38 38 weeks gestation of pregnancy
CPT/HCPCS: 59025

== ENCOUNTER 2019-10-16 12:32 | Inpatient (IN) | payer MEDICAID ==
[2019-10-16] MEDS ORDERED: LACTATED RINGERS 1,000 ML ONE (13:01)
[2019-10-16] MEDS ORDERED: AMPICILLIN 2 GM in SODIUM CHLORIDE 0.9% 50 ML IV STA (13:06)
[2019-10-16 13:09] LABS: Basophils % (Auto) 0.3 % (0.0-1.8); Eosinophils % (Auto) 0.4 % (0.0-4.3); Lymphocytes # (Auto) 1.4 K/mm3 (1.2-5.4); Lymphocytes % (Auto) 26.1 % (13.4-35.0); Mean Corpuscular HGB Conc 35 % (30-34); Mean Corpuscular Volume 80 fl (79-97); Monocytes # (Auto) 0.4 K/mm3 (0.0-0.8); Platelet Count 243 K/mm3 (140-440); Red Blood Count 3.25 M/mm3 (3.65-5.03); Red Cell Distribution Width 17.6 % (13.2-15.2)
[2019-10-16] MEDS ORDERED: AMPICILLIN/NS 2 GM/100 ML 2 GM/100 ML BAG IV ONE ×2 (13:11→14:00)
[2019-10-16] MEDS: LACTATED RINGERS 1,000 ML IV SCH ×2 (13:15→15:19)
[2019-10-16] MEDS ORDERED: ONDANSETRON 4 MG/2 ML INJ ONE (13:40)
[2019-10-16] MEDS ORDERED: fentaNYL 100 MCG/2 ML INJ ONE (13:40)
[2019-10-16] MEDS ORDERED: MINERAL OIL 30 ML ORAL LIQD PO PRN (14:09)
[2019-10-16] MEDS ORDERED: ePHEDrine SULFATE 50 MG/1 ML INJ IV PRN ×2 (14:09→14:47)
[2019-10-16] MEDS ORDERED: PROMETHAZINE 25 MG TAB PO PRN ×2 (14:09→18:30)
[2019-10-16] MEDS ORDERED: fentaNYL 100 MCG/2 ML INJ IV PRN (14:09)
[2019-10-16] MEDS ORDERED: ONDANSETRON 4 MG/2 ML INJ IV PRN (14:09)
[2019-10-16] MEDS ORDERED: BUTORPHANOL 2 MG/1 ML INJ IV PRN (14:09)
[2019-10-16] MEDS ORDERED: TERBUTALINE 1 MG/1 ML INJ SUB-Q PRN (14:09)
[2019-10-16] MEDS ORDERED: LIDOCAINE (2%) 20 MG/1 ML VIAL 20 ML MDV INFILTRATI ONE (14:09)
[2019-10-16] MEDS ORDERED: ACETAMINOPHEN 325 MG TAB PO PRN (14:09)
[2019-10-16] MEDS ORDERED: DEXMEDETOMIDINE 200 MCG/2 ML VIAL IV ONE (14:32)
[2019-10-16] MEDS ORDERED: NALOXONE 2 MG/2 ML INJ IV PRN (14:47)
--- NOTE | 2019-10-16 14:48 | Anesthesia Consultation ---
Anesthesia Consult and Med Hx Date of service: 10/16/19 - Airway Anesthetic Teeth Evaluation: Good ROM Head & Neck: Adequate Mental/Hyoid Distance: Adequate Mallampati Class: Class II Intubation Access Assessment: Probably Good - Pulmonary Exam CTA: Yes - Cardiac Exam Cardiac Exam: RRR - Pre-Operative Health Status ASA Pre-Surgery Classification: ASA2 Proposed Anesthetic Plan: Epidural - Pulmonary Hx Asthma: No COPD: No Hx Pneumonia: No - Cardiovascular System Hx Hypertension: No - Central Nervous System Hx Seizures: No Hx Psychiatric Problems: No - Endocrine Hx Renal Disease: No Hx End Stage Renal Disease: No Hx Hypothyroidism: No Hx Hyperthyroidism: No - Hematic Hx Anemia: No Hx Sickle Cell Disease: No - Other Systems Hx Alcohol Use: No
--- NOTE | 2019-10-16 14:49 | Progress Note ---
Labor Epidural - Labor Epidural Start Time: 14:35 Stop Time: 14:43 Performed by:: YONG LUTZ Procedure: Patient is requesting epidural for labor pain. H&P, and labs reviewed. Procedure explained, questions answered, consent obtained. Patient in sitting position with blood pressure cuff and pulse ox on and working. Timeout performed immediately before start of procedure. Sterile betadine prep/drape. 3 mL 1% lidocaine skin wheal at L[3]-L[4]. 18-gauge Touhy epidural needle advanced to [id number] with saline at 5 cm. 27-gauge spinal needle advanced until clear, free-flowing CSF. Intrathecal dexmedetomidine [5] mcg administered and needle removed. Epidural catheter advanced to 10 cm, negative aspiration for blood and csf, negative test dose 3 ml 1.5% lidocaine with epinephrine. Sterile steri-strips and tegaderm applied, followed by tape reinforcement. Patient tolerated procedure well.
[2019-10-16] MEDS ORDERED: OXYTOCIN 20 UNIT/1000ML DRIP 20 UNITS/1,000 ML BAG IV SCH (15:00)
[2019-10-16] MEDS ORDERED: fentaNYL-BUPIV 2 MCG/ML-0.125% 200 MCG/100 ML BAG EPIDURAL SCH (15:00)
--- NOTE | 2019-10-16 15:03 | History and Physical Report ---
History of Present Illness Date of examination: 10/16/19 Date of admission: 10/16/2019 Chief complaint: Active labor at term History of present illness: 24 yo, at 40.2 wks, initiated care with [facility] at 22.4 wks gestation. 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 She presents to [facility] with reports of irregular painful ctxs. Her cervical exam was found to be 5/80/-2. Reports +FM. Denies VB or LOF. Labs: A+, antibody negative; PAP smear normal; rubella immuune; VDRL non-reactive; urine culture positive; HBsAg negative; HIV negative; HSV-2 positive; GC negative; early 1 hr gtt - 123; GBS positive in urine. 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 denies: smoking, alcohol abuse, prescription drug abuse, IV drug use - Obstetrical History Expected Date of Delivery: 10/14/19 Actual Gestation: 40 Week(s) 2 Day(s) : 4 Para: 3 Hx # Term Pregnancies: 3 Number of Pregnancies: 0 Spontaneous Abortions: 0 Induced : 0 Number of Living Children: 3 #1 Infant Gender: Male year: 2,015 Method of Delivery: Vaginal Gestational age at delivery: 40 Complications: none #2 Gender: Female year: 2,017 Method of Delivery: Vaginal Gestational age at delivery: 40 Complications: none #3 Infant Gender: Male year: 2,019 Method of Delivery: Vaginal Gestational age at delivery: 38 Complications: none Medications and Allergies Allergies Allergy/AdvReac Type Severity Reaction Status Date / Time No Known Allergies Allergy Verified 09/12/14 16:54 Home Medications Medication Instructions Recorded Confirmed Last Taken Type RX: No Known Home Medications [No 03/12/18 03/12/18 Unknown History Reported Home Medications] Active Meds: Active Medications Acetaminophen (Tylenol) 650 mg PO Q4H PRN PRN Reason: Pain, Mild (1-3) Butorphanol Tartrate (Stadol) 2 mg IV Q2H PRN PRN Reason: Pain , Severe (7-10) Ephedrine Sulfate (Ephedrine Sulfate) 10 mg IV Q2M PRN PRN Reason: Hypotension Ephedrine Sulfate (Ephedrine Sulfate) 10 mg IV Q2M PRN PRN Reason: Hypotension Fentanyl (Sublimaze) 100 mcg IV Q2H PRN PRN Reason: Pain,Severe (7-10) LABOR PAIN Ampicillin Sodium (Ampicillin/Ns 2 Gm/100 Ml) 2 gm in 100 mls @ 100 mls/hr IV ONCE ONE Stop: 10/16/19 14:59 Last Admin: 10/16/19 13:15 Dose: 100 mls/hr Documented by: Lactated Ringer's (Lactated Ringers) 1,000 mls @ 125 mls/hr IV DIRECT ZEYNEP Last Admin: 10/16/19 13:15 Dose: 125 mls/hr Documented by: Oxytocin/Sodium Chloride (Pitocin/Ns 20 Unit/1000ml Drip) 20 units in 1,000 mls @ 125 mls/hr IV DIRECT ZEYNEP Ampicillin Sodium (Ampicillin/Ns 1 Gm/50 Ml) 1 gm in 50 mls @ 100 mls/hr IV Q4HR ZEYNEP; Protocol Fentanyl/Bupivacaine/Sodium Chlor (Fentanyl-Bupiv 2 Mcg/Ml-0.125%) 200 mcg in 100 mls @ 12 mls/hr EPIDURAL TITR ZEYNEP; Protocol Mineral Oil (Mineral Oil) 30 ml PO QHS PRN PRN Reason: Constipation Naloxone HCl (Naloxone) 0.2 mg IV Q5M PRN PRN Reason: Respiratory sedation Ondansetron HCl (Zofran) 4 mg IV Q8H PRN PRN Reason: Nausea And Vomiting Promethazine HCl (Phenergan) 25 mg PO Q6H PRN PRN Reason: Nausea And Vomiting Terbutaline Sulfate (Brethine) 0.25 mg SUB-Q ONCE PRN PRN Reason: Hyperstimulation/Hypertonicity Review of Systems All systems: negative Genitourinary: contractions - Vital Signs Vital signs: Vital Signs Pulse Pulse Ox 73 83 L 10/16/19 12:37 10/16/19 12:37 Temp Pulse Resp BP Pulse Ox 99 F 94 H 14 94/66 99 10/16/19 14:25 10/16/19 14:55 10/16/19 14:25 10/16/19 14:48 10/16/19 14:55 - Physical Exam Breasts: Positive: normal Cardiovascular: Regular rate Lungs: Positive: Normal air movement Abdomen: Positive: other (gravid) Genitourinary (Female): Positive: normal external genitalia, normal perenium Uterus: Positive: enlarged (S=D) Deep Tendon Reflex Grade: Normal +2 - Obstetrical FHR: category 1 Uterine Contraction Monitor Mode: External Cervical Dilatation: 5 (vertex) Cervical Effacement Percentage: 80 (AROM @ 1533, clear, tolerated well) station: -1 Uterine Contraction Frequency (min): 4-5 Uterine Contraction Pattern: Irregular Uterine Tone Measurement Phase: Resting Uterine Contraction Intensity: Moderate Results Result Diagrams: 10/16/19 14:45 Abnormal lab results 10/16/19 10/16/19 Range/Units 12:51 13:30 RBC 3.25 L (3.65-5.03) M/mm3 Hgb 9.0 L (10.1-14.3) gm/dl Hct 26.0 L (30.3-42.9) % MCHC 35 H (30-34) % RDW 17.6 H (13.2-15.2) % Stevens % (Auto) 8.0 H (0.0-7.3) % D-Dimer 746.98 H (0-234) ng/mlDDU All other labs normal. Assessment and Plan - Patient Problems (1) Active labor at term Current Visit: Yes Status: Acute Plan to address problem: Admit to L & D Epidural as desired AROM Initiate Pitocin at 1700 if ctxs still irregular Anticipate (2) GBS (group B streptococcus) UTI complicating Current Visit: Yes Status: Acute (3) GBS bacteriuria Current Visit: Yes Status: Acute Plan to address problem: Initiate GBS prophylaxis (4) Anemia affecting in third trimester Current Visit: No Status: Acute (5) Anemia Current Visit: No Status: Chronic Qualifiers: Anemia type: iron deficiency Plan to address problem: Resume oral iron supplementation PP (6) HSV-2 seropositive Current Visit: Yes Status: Acute Plan to address problem: No vaginal lesions noted
[2019-10-16 15:06] LABS: Hemoglobin 8.2 gm/dl (10.1-14.3); Mean Corpuscular HGB Conc 33 % (30-34); Mean Corpuscular Volume 81 fl (79-97); Platelet Count 231 K/mm3 (140-440); Red Blood Count 3.09 M/mm3 (3.65-5.03); Red Cell Distribution Width 17.6 % (13.2-15.2)
[2019-10-16] MEDS ORDERED: AMPICILLIN/NS 1 GM/50 ML 1 GM/50 ML BAG IV SCH ×2 (17:00→18:11)
[2019-10-16] MEDS ORDERED: OXYTOCIN DRIP 30 UNITS/500 ML BAG IV SCH (17:00)
[2019-10-16] MEDS ORDERED: MAGNESIUM HYDROXIDE (MOM) ORAL LIQD UDC PO PRN (18:30)
[2019-10-16] MEDS ORDERED: diphenhydrAMINE 25 MG CAP PO PRN (18:30)
[2019-10-16] MEDS ORDERED: LANOLIN/ZINC/DIMETHICONE (LANSINOH) 7 GM TP PRN (18:30)
[2019-10-16] MEDS ORDERED: WITCH HAZEL/ GLYCERIN PAD TP PRN (18:30)
--- NOTE | 2019-10-16 18:37 | Procedure Note ---
OB Delivery Note - Delivery Date of Delivery: 10/16/19 (1811) Surgeon: DUDLEY CERRATO (CNPaolo) Estimated blood loss: 200cc - Vaginal Delivery presentation: vertex Delivery position: OA (ERVIN) Delivery induction: none Delivery augmentation: rupture of membranes (AROM @ 1533, clear) Delivery monitor: external FHT, external uterine Route of delivery: Delivery placenta: spontaneous (1814, bar) Delivery cord: nuchal cord (x1, reduced via summersault manuver), 3 umbilical vessels Episiotomy: none Delivery laceration: none Delivery comments: of viable, quiet male , placed directly to maternal abdomen. Manually dried with warm blanket producing spontaneous cry. Cord double clamped, cut by myself. Placenta spontaneously delivered, yosvany, disposed per hospital policy. Uterus firm @ U-2, hemostasis maintained. Perineum intact. Mother and baby safe, stable and left in care of RN. - A at 1 minute: 8 at 5 minutes: 9 Gender: Male (Weight: 3417 gms (7lbs 9ozs) 18 inches)
[2019-10-16] MEDS: IBUPROFEN 600 MG TAB PO SCH (21:37)
[2019-10-17] MEDS: oxyCODONE /ACETAMINOPHEN 5-325MG TAB PO PRN ×3 (00:14→17:31)
[2019-10-17] MEDS: IBUPROFEN 600 MG TAB PO SCH (02:00)
[2019-10-17 07:51] LABS: Hematocrit 24.3 % (30.3-42.9)
--- NOTE | 2019-10-17 09:40 | Progress Note ---
Assessment and Plan A: PP Day #1 Asymptomatic Anemia P: Follow Routine Orders Infed 100mg IM x 1 Dose Depo Provera 150mg IM x 1 dose prior to discharge D/C home today per patient request RTO in 6 Weeks Subjective - Subjective Date of service: 10/17/19 Patient reports: appetite normal, voiding normally, pain well controlled, flatus, ambulating normally [place]: doing well Objective - Vital Signs Latest vital signs: Vital Signs Temp Pulse Resp BP BP Pulse Ox 10/17/19 08:37 98.5 F 69 16 111/72 99 10/17/19 07:06 18 10/17/19 06:06 18 10/17/19 04:28 98.0 F 69 18 122/88 99 10/17/19 01:14 18 10/17/19 00:30 98 F 71 20 115/78 100 10/17/19 00:14 18 10/16/19 22:37 18 10/16/19 21:37 18 10/16/19 20:54 98.1 F 77 18 128/86 100 10/16/19 19:34 77 121/82 10/16/19 19:19 71 119/83 10/16/19 19:03 80 118/80 10/16/19 19:00 98.4 F 10/16/19 18:48 66 115/79 10/16/19 18:33 76 118/70 10/16/19 18:18 72 116/77 10/16/19 18:05 74 100 10/16/19 18:03 75 132/92 10/16/19 18:00 75 100 10/16/19 17:55 71 100 10/16/19 17:50 74 100 10/16/19 17:49 75 130/91 10/16/19 17:45 79 100 10/16/19 17:40 75 100 10/16/19 17:35 76 100 10/16/19 17:34 76 122/81 10/16/19 17:30 73 100 10/16/19 17:25 78 100 10/16/19 17:20 73 100 10/16/19 17:18 75 107/73 10/16/19 17:15 71 100 10/16/19 17:10 72 100 10/16/19 17:05 79 106/71 100 10/16/19 17:03 76 103/68 10/16/19 17:00 76 100 10/16/19 16:55 75 100 10/16/19 16:50 72 100 10/16/19 16:48 71 101/66 10/16/19 16:45 74 100 10/16/19 16:40 74 100 10/16/19 16:35 70 99 10/16/19 16:34 73 100/64 10/16/19 16:30 70 100 10/16/19 16:25 74 99 10/16/19 16:20 82 100 10/16/19 16:18 77 98/62 10/16/19 16:15 78 100 10/16/19 16:10 73 100 10/16/19 16:05 83 95/56 100 10/16/19 16:00 78 100 10/16/19 15:55 78 100 10/16/19 15:51 77 97/55 10/16/19 15:50 71 99 10/16/19 15:45 89 99 10/16/19 15:40 79 100 10/16/19 15:35 80 108/71 100 10/16/19 15:33 86 106/68 10/16/19 15:30 88 100 10/16/19 15:25 84 100 10/16/19 15:20 81 98 10/16/19 15:18 85 83/51 10/16/19 15:15 71 99 10/16/19 15:10 79 99 10/16/19 15:05 73 99 10/16/19 15:04 79 90/53 10/16/19 15:00 86 99 10/16/19 14:55 94 H 99 10/16/19 14:50 90 100 10/16/19 14:48 100 H 94/66 10/16/19 14:45 89 100 10/16/19 14:40 93 H 100 10/16/19 14:38 93 H 109/71 10/16/19 14:35 92 H 100 10/16/19 14:34 100 H 120/83 88 10/16/19 14:30 91 H 100 10/16/19 14:25 99 F 92 H 14 117/84 117/84 100 10/16/19 14:20 89 100 10/16/19 14:18 82 119/82 10/16/19 14:15 90 100 10/16/19 14:10 85 98 10/16/19 14:05 87 98 10/16/19 14:03 86 113/80 10/16/19 14:00 89 97 10/16/19 13:55 91 H 99 10/16/19 13:50 93 H 98 10/16/19 13:47 95 H 110/76 10/16/19 12:37 73 83 L Intake and Output 10/16/19 10/17/19 10/17/19 22:59 06:59 14:59 Intake Total 378.333 240 Output Total 800 600 Balance -421.667 -360 Intake: IV 258.333 Lactated Ringers 1,000 ml 258.333 @ 125 mls/hr IV DIRECT ZEYNEP Rx#:[id number] Oral 120 Intake, Free Water 240 Output: Urine 800 600 Void 800 600 Other: Total, Intake Amount 120 Total, Output Amount 650 500 # Voids Void 1 Estimated Blood Loss 200 - Exam Breasts: Present: normal Cardiovascular: Present: Regular rate Lungs: Present: Clear to auscultation, Normal air movement Abdomen: Present: normal appearance, soft, normal bowel sounds Uterus: Present: normal, firm, fundal height below umbilicus Extremities: Present: normal - Labs Labs: Abnormal lab results 10/16/19 10/16/19 10/16/19 Range/Units 12:51 13:30 14:45 RBC 3.25 L 3.09 L (3.65-5.03) M/mm3 Hgb 9.0 L 8.2 L (10.1-14.3) gm/dl Hct 26.0 L 25.0 L (30.3-42.9) % MCH 27 L (28-32) pg MCHC 35 H (30-34) % RDW 17.6 H 17.6 H (13.2-15.2) % [place] % (Auto) 8.0 H (0.0-7.3) % D-Dimer 746.98 H (0-234) ng/mlDDU 10/17/19 Range/Units 06:30 RBC (3.65-5.03) M/mm3 Hgb 8.0 L (10.1-14.3) gm/dl Hct 24.3 L (30.3-42.9) % MCH (28-32) pg MCHC (30-34) % RDW (13.2-15.2) % [place] % (Auto) (0.0-7.3) % D-Dimer (0-234) ng/mlDDU
--- NOTE | 2019-10-17 09:41 | Discharge Summary ---
Providers - Providers Date of Admission: 10/16/19 12:33 Date of discharge: 10/17/19 Attending physician: LIANA MONTENEGRO JR, MD Primary care physician: LIANA MONTENEGRO JR, MD Hospitalization Reason for admission: active labor Delivery: Episiotomy: none Laceration: none Other procedures: none complications: none Discharge diagnosis: IUP at term delivered baby: male Condition at discharge: Good Disposition: DC-01 TO HOME OR SELFCARE Plan - Provider Discharge Summary Activity: routine, no sex for 6 weeks, no heavy lifting 4 weeks, no strenuous exercise Diet: routine Instructions: routine Additional instructions: [] Smoking cessation referral if applicable(refer to patient education folder for contact #) [] Refer to [facility] Booklet Call your doctor immediately for: * Fever > 100.5 * Heavy vaginal bleeding ( >1 pad per hour) * Severe persistent headache * Shortness of breath * Reddened, hot, painful area to leg or breast * Drainage or odor from incision. * Keep incision clean and dry at all times and follow doctor's instructions regarding bathing/showering - Follow up plan Follow up: LIANA MONTENEGRO JR, MD [Primary Care Provider] - 6 Weeks
[2019-10-17] MEDS ORDERED: FERROUS SULFATE 325 MG TAB PO SCH (10:00)
[2019-10-17] MEDS ORDERED: IRON DEXTRAN COMPLEX 100 MG/2 ML INJ IM SCH (10:00)
[2019-10-17] MEDS ORDERED: medroxyPROGESTERone ACETATE 150 MG/ML SYRINGE IM ONE (10:00)
[2019-10-17 17:20] VITALS: BP 131/90
--- NOTE | 2019-10-17 21:41 | Post Anesthesia Evaluation ---
- Post Anesthesia Evaluation Patient Participated: Yes Airway Patent: Yes Stable Respiratory Function: Yes Nausea/Vomiting: No Temp > 96.8F: Yes Pain Manageable: Yes Adequeate Hydration: Yes Anesthesia Complications: No Block Receding Appropriately: Yes
== END 2019-10-17 23:00 | disposition home or self-care (01) | DRG 774 ==
LOC: TRG 12:32 → LD 12:32 → APU 12:32 → TRG 12:33 → LD 12:33 → OB 20:43
PROVIDERS: ADMIT Obstetrics & Gynecology; ATTEND Obstetrics & Gynecology
PROC: 10E0XZZ Delivery of Products of Conception, External Approach (ICD-10-PCS; principal; 2019-10-16)
DX: O99.824 Streptococcus B carrier state complicating childbirth (principal); O98.52 Other viral diseases complicating childbirth; D50.9 Iron deficiency anemia, unspecified; A60.00 Herpesviral infection of urogenital system, unspecified; Z37.0 Single live birth; Z3A.40 40 weeks gestation of pregnancy; O99.02 Anemia complicating childbirth; B00.9 Herpesviral infection, unspecified; O69.81X0 Labor and delivery complicated by cord around neck, without compression, not applicable or unspecified
CPT/HCPCS: 36415; 85014; 85018; 85025; 85027; 85379; 86850; 86900; 86901; G0378; J0290; J1050; J1750; J2405; J2590; J3010; J3490; J7120

== ENCOUNTER 2019-10-24 09:33 | Inpatient (IN) | payer MEDICAID ==
[2019-10-24] MEDS ORDERED: levETIRAcetam 1000 MG/NS 0.75% 1,000 MG/100 ML BAG IV ONE (10:20)
--- NOTE | 2019-10-24 10:41 | Emergency Department Report ---
HPI - General Chief Complaint: Seizure Time Seen by Provider: 10/24/19 10:19 - HPI HPI: This is a 24-year-old -[place] female presents to the emergency department after she had some witnessed seizure-like activity just prior to presentation. The patient does not have any history of seizure. She is 1 week from a vaginal delivery here at [facility]. Patient presents with some elevated blood pressure but there is no history of preeclampsia or hypertensive issues during her . Patient is currently postictal but is arousable. She complains of a headache and some fatigue. No other past medical history. ED Past Medical Hx - Past Medical History Previous Medical History?: No Hx Hypertension: No Hx Congestive Heart Failure: No Hx Diabetes: No Hx Deep Vein Thrombosis: No Hx Renal Disease: No Hx Sickle Cell Disease: No Hx Seizures: No Hx Asthma: No Hx COPD: No Hx HIV: No Additional medical history: freq uti/pyleonephritis, Vaginal dleivery 01-20-2017, 11-19-2017 - Surgical History Past Surgical History?: No - Social History Smoking Status: Never Smoker Substance Use Type: None - Medications Home Medications: Home Medications Medication Instructions Recorded Confirmed Last Taken Type No Known Home Medications [No 03/12/18 03/12/18 Unknown History Reported Home Medications] ED Review of Systems ROS: Stated complaint: SEIZURE Other details as noted in HPI Comment: Unobtainable due to pts medical conditions Neurological: headache Physical Exam - Physical Exam Vital Signs: Vital Signs 10/24/19 10/24/19 09:56 10:00 Temperature 98.3 F 98.4 F Pulse Rate 92 H 86 Respiratory 21 18 Rate Blood Pressure 155/112 Blood Pressure 155/103 [Right] O2 Sat by Pulse 100 100 Oximetry Physical Exam: GENERAL: The patient is well-developed well-nourished. HENT: Normocephalic. Atraumatic. Patient has moist mucous membranes. EYES: Extraocular motions are intact. Pupils equal reactive to light bilaterally. NECK: Supple. Trachea is midline. CHEST/LUNGS: Clear to auscultation. There is no respiratory distress noted. HEART/CARDIOVASCULAR: Regular. There is no tachycardia. There is no murmur. ABDOMEN: Abdomen is soft, nontender. Patient has normal bowel sounds. There is no abdominal distention. SKIN: Skin is warm and dry. NEURO: Patient is fatigued and postictal. She is easily arousable. Once awake she is oriented to person, place, time but will go right back to sleep if not stimulated. The patient has no focal neurologic deficits. Normal speech. Cranial nerves II through XII grossly intact. No pronator drift. No dysmetria. MUSCULOSKELETAL: There is no tenderness or deformity. There is no limitation range of motion. ED Course Vital Signs 10/24/19 10/24/19 09:56 10:00 Temperature 98.3 F 98.4 F Pulse Rate 92 H 86 Respiratory 21 18 Rate Blood Pressure 155/112 Blood Pressure 155/103 [Right] O2 Sat by Pulse 100 100 Oximetry ED Medical Decision Making - Lab Data Result diagrams: 10/24/19 10:45 10/24/19 10:45 - Radiology Data Radiology results: report reviewed NONENHANCED CT SCAN OF THE HEAD: INDICATION / CLINICAL INFORMATION: 24 years Female; new onset seizure. TECHNIQUE: Routine CT head without contrast. All CT scans at this location are performed using CT dose reduction for ALARA by means of automated exposure control. COMPARISON: None. FINDINGS: BRAIN / INTRACRANIAL CONTENTS: No acute hemorrhage, mass effect, midline shift, hydrocephalus Low attenuation areas are seen in the high convexity parietal lobes bilaterally more on the left side and also in the left frontal lobe. Given the history of , I am considering this to be due to posterior reversible encephalopathy syndrome (PRES). The differential considerations would be cerebral infarction, vasculitis, status epilepticus and hypoglycemia. Dural venous sinuses are normal. Pituitary gland is normal in size. No intracerebral or extracerebral hemorrhage seen. CRANIOCERVICAL JUNCTION: No significant abnormality. ORBITS: No significant abnormality of visualized orbits. SINUSES / MASTOIDS: No significant abnormality of the visualized paranasal sinuses or mastoid air cells. ADDITIONAL FINDINGS: None. IMPRESSION: Patchy low attenuation areas in the posterior parietal lobes bilaterally more on the left side and in the frontal lobes more on the left side; given the history of recent childbirth, these findings are consistent with posterior reversible encephalopathy syndro me. - Medical Decision Making This patient presents to the emergency department after having a new onset seizure, with the seizure activity being witnessed by family, that occurred just prior to presentation. Upon arrival to the emergency department the patient does appear slightly postictal. She is very fatigued but is arousable. Once awake she is oriented, but will go right back to sleep if not stimulated. Throughout her ED course the patient became more awake and alert. She does not have any focal, motor or sensory deficits and her cranial nerves are intact. A CT scan of the head was completed that did not show any bleed, shift, mass or any obvious signs of ischemia. It was read by radiology as having some signs of posterior reversible encephalopathy syndrome. Patient presented with some hypertension that did come down to a more reasonable level without any antihypertensive medication given. Given that she was 1 week , there is concern for eclampsia. The patient's [employer] service was contacted and have requested to be a consult instead of the admitting service. They plan to administer IV magnesium. Patient's labs have been mostly unremarkable including CBC, metabolic panel, TSH, blood alcohol level. She was given a small amount of potassium chloride for mild hypokalemia. So far this patient has been in the emergency department for close to 6 hours and there has been no return of any seizure-like activity. She will be admitted to the hospital for further evaluation and treatment and was accepted for admission by the hospitalist, Dr. Cherry. Critical Care Time: No Critical care attestation.: If time is entered above; I have spent that time in minutes in the direct care of this critically ill patient, excluding procedure time. ED Disposition Clinical Impression: New onset seizure, Posterior reversible encephalopathy syndrome, hypertension Disposition: OP ADMIT IP TO THIS HOSP Is pt being admited?: Yes Condition: Fair Time of Disposition: 14:46
[2019-10-24 10:56] LABS: Basophils % (Auto) 0.5 % (0.0-1.8); Eosinophils # (Auto) 0.1 K/mm3 (0.0-0.4); Eosinophils % (Auto) 1.9 % (0.0-4.3); Hemoglobin 11.7 gm/dl (10.1-14.3); Mean Corpuscular HGB Conc 35 % (30-34); Mean Corpuscular Volume 80 fl (79-97); Monocytes # (Auto) 0.5 K/mm3 (0.0-0.8); Monocytes % (Auto) 9.1 % (0.0-7.3); Platelet Count 270 K/mm3 (140-440); Red Blood Count 4.14 M/mm3 (3.65-5.03); Red Cell Distribution Width 18.2 % (13.2-15.2)
--- NOTE | 2019-10-24 12:23 | Cat Scan Report ---
NONENHANCED CT SCAN OF THE HEAD: INDICATION / CLINICAL INFORMATION: 24 years Female; new onset seizure. TECHNIQUE: Routine CT head without contrast. All CT scans at this location are performed using CT dos e reduction for ALARA by means of automated exposure control. COMPARISON: None. FINDINGS: BRAIN / INTRACRANIAL CONTENTS: No acute hemorrhage, mass effect, midline shift, hydrocephalus Low attenuation areas are seen in the high convexity parietal lobes bilaterally more on the left side and also in the left frontal lobe. Given the history of , I am considering this to be due to posterior reversible encephalopathy syndrome (PRES). The differential considerations would be cere bral infarction, vasculitis, status epilepticus and hypoglycemia. Dural venous sinuses are normal. Pituitary gland is normal in size. No intracerebral or extracerebral hemorrhage seen. CRANIOCERVICAL JUNCTION: No significant abnormality. ORBITS: No significant abnormality of visualized orbits. SINUSES / MASTOIDS: No significant abnormality of the visualized paranasal sinuses or mastoid air anahi ls. ADDITIONAL FINDINGS: None. IMPRESSION: Patchy low attenuation areas in the posterior parietal lobes bilaterally more on the left side and i n the frontal lobes more on the left side; given the history of recent childbirth, these findings are consistent with posterior reversible encephalopathy syndrome. Signer Name: Wendy Dodge MD Signed: 10/24/2019 12:18 PM Workstation Name: [email or web address]
[2019-10-24] MEDS ORDERED: SODIUM CHLORIDE 0.9% 1000 ML 1,000 ML IV ONE (14:08)
[2019-10-24 14:17] LABS: Alanine Aminotransferase 24 units/L (7-56); Albumin 3.4 g/dL (3.9-5); Blood Urea Nitrogen 10 mg/dL (7-17); Calcium 8.7 mg/dL (8.4-10.2); Hemolysis Index 8
[2019-10-24] MEDS ORDERED: POTASSIUM CHLORIDE ER 20 MEQ TAB PO ONE ×2 (14:22→17:11)
[2019-10-24 14:40] LABS: BUN/Creatinine Ratio 20
[2019-10-24] MEDS ORDERED: SODIUM CHLORIDE 0.9% 1000 ML 1,000 ML ONE (17:11)
--- NOTE | 2019-10-24 17:23 | History and Physical Report ---
History of Present Illness Date of examination: 10/24/19 Date of admission: 10/24/19 14:46 Chief complaint: Seizures x1 episode History of present illness: 24-year-old -Filipino female with a recent vaginal delivery 1 week ago presents with new onset seizures. As per patient (tonic and chronic in nature. No postictal state. Slightly elevated blood pressure. There is no history of for head clamp preeclampsia or hypertensive pressures during the . She also complains of headache. No other significant past medical history. - Past Medical History Previous Medical History?: No dical history: freq uti/pyleonephritis, Vaginal dleivery 01-20-2017, 11-19-2017 - Surgical History Past Surgical History?: No - Social History Smoking Status: Never Smoker Substance Use Type: None Family history Htn - Medications Home Medications: Home Medications Medication Instructions Recorded Confirmed Last Taken Type No Known Home Medications [No 03/12/18 03/12/18 Unknown History Reported Home Medications] Review of Systems ROS: Stated complaint: SEIZURE Other details as noted in HPI Comment: Unobtainable due to pts medical conditions Neurological: headache Medications and Allergies Allergies Allergy/AdvReac Type Severity Reaction Status Date / Time No Known Allergies Allergy Verified 09/12/14 16:54 Home Medications Medication Instructions Recorded Confirmed Last Taken Type No Known Home Medications [No 03/12/18 10/24/19 Unknown History Reported Home Medications] Active Meds: Active Medications Sodium Chloride (Nacl 0.9% 1000 Ml) 1,000 mls @ 250 mls/hr IV ONCE ONE Stop: 10/24/19 18:07 Last Admin: 10/24/19 17:16 Dose: 250 mls/hr Documented by: Exam - Constitutional Vitals: Temp Pulse Resp BP Pulse Ox 98.4 F 73 16 148/91 98 10/24/19 10:00 10/24/19 11:05 10/24/19 11:05 10/24/19 11:05 10/24/19 11:05 General appearance: Present: no acute distress, well-nourished - EENT Eyes: Present: PERRL ENT: hearing intact, clear oral mucosa - Neck Neck: Present: supple, normal ROM - Respiratory Respiratory effort: normal Respiratory: bilateral: CTA - Cardiovascular Heart Sounds: Present: S1 & S2. Absent: rub, click - Extremities Extremities: pulses symmetrical, No edema Peripheral Pulses: within normal limits - Abdominal General gastrointestinal: Present: soft, non-tender, non-distended, normal bowel sounds Female genitourinary: Present: normal - Integumentary Integumentary: Present: clear, warm, dry - Musculoskeletal Musculoskeletal: gait normal, strength equal bilaterally - Psychiatric Psychiatric: appropriate mood/affect, intact judgment & insight - Neurologic Neurologic: CNII-XII intact, moves all extremities Results - Labs CBC & Chem 7: 10/25/19 04:43 10/25/19 04:43 Labs: Laboratory Last Values WBC 5.4 K/mm3 (4.5-11.0) 10/24/19 10:45 RBC 4.14 M/mm3 (3.65-5.03) 10/24/19 10:45 Hgb 11.7 gm/dl (10.1-14.3) 10/24/19 10:45 Hct 33.0 % (30.3-42.9) 10/24/19 10:45 MCV 80 fl (79-97) 10/24/19 10:45 MCH 28 pg (28-32) 10/24/19 10:45 MCHC 35 % (30-34) H 10/24/19 10:45 RDW 18.2 % (13.2-15.2) H 10/24/19 10:45 Plt Count 270 K/mm3 (140-440) 10/24/19 10:45 Lymph % (Auto) 18.0 % (13.4-35.0) 10/24/19 10:45 [place] % (Auto) 9.1 % (0.0-7.3) H 10/24/19 10:45 Eos % (Auto) 1.9 % (0.0-4.3) 10/24/19 10:45 Baso % (Auto) 0.5 % (0.0-1.8) 10/24/19 10:45 Lymph # 1.0 K/mm3 (1.2-5.4) L 10/24/19 10:45 [place] # 0.5 K/mm3 (0.0-0.8) 10/24/19 10:45 Eos # 0.1 K/mm3 (0.0-0.4) 10/24/19 10:45 Baso # 0.0 K/mm3 (0.0-0.1) 10/24/19 10:45 Seg Neutrophils % 70.5 % (40.0-70.0) H 10/24/19 10:45 Seg Neutrophils # 3.8 K/mm3 (1.8-7.7) 10/24/19 10:45 Sodium 138 mmol/L (137-145) 10/24/19 10:45 Potassium 3.4 mmol/L (3.6-5.0) L 10/24/19 10:45 Chloride 103.9 mmol/L (98-107) 10/24/19 10:45 Carbon Dioxide 20 mmol/L (22-30) L 10/24/19 10:45 Anion Gap 18 mmol/L 10/24/19 10:45 BUN 10 mg/dL (7-17) 10/24/19 10:45 Creatinine 0.5 mg/dL (0.6-1.2) L 10/24/19 10:45 Estimated GFR > 60 ml/min 10/24/19 10:45 BUN/Creatinine Ratio 20 % 10/24/19 10:45 Glucose 78 mg/dL (65-100) 10/24/19 10:45 Calcium 8.7 mg/dL (8.4-10.2) 10/24/19 10:45 Magnesium 1.90 mg/dL (1.7-2.3) 10/24/19 12:47 Total Bilirubin 0.20 mg/dL (0.1-1.2) 10/24/19 10:45 AST 19 units/L (5-40) 10/24/19 10:45 ALT 24 units/L (7-56) 10/24/19 10:45 Alkaline Phosphatase 111 units/L (35-129) 10/24/19 10:45 Total Protein 6.7 g/dL (6.3-8.2) 10/24/19 10:45 Albumin 3.4 g/dL (3.9-5) L 10/24/19 10:45 Albumin/Globulin Ratio 1.0 % 10/24/19 10:45 Plasma/Serum Alcohol < 0.01 % (0-0.07) 10/24/19 14:24 Short CBC 10/24/19 10/25/19 Range/Units 10:45 04:43 WBC 5.4 6.5 (4.5-11.0) K/mm3 Hgb 11.7 11.6 (10.1-14.3) gm/dl Hct 33.0 35.1 (30.3-42.9) % Plt Count 270 281 (140-440) K/mm3 BMP 10/24/19 10/25/19 10:45 04:43 Sodium 138 141 Potassium 3.4 L 2.7 L* D Chloride 103.9 107.5 H Carbon Dioxide 20 L 19 L BUN 10 5 L Creatinine 0.5 L 0.3 L Glucose 78 90 Calcium 8.7 8.6 Liver Function 10/24/19 10/25/19 Range/Units 10:45 04:43 Total Bilirubin 0.20 0.40 (0.1-1.2) mg/dL AST 19 19 (5-40) units/L ALT 24 25 (7-56) units/L Alkaline Phosphatase 111 130 H (35-129) units/L Albumin 3.4 L 3.5 L (3.9-5) g/dL - Imaging and Cardiology Imaging and Cardiology: CT head IMPRESSION: Patchy low attenuation areas in the posterior parietal lobes bilaterally more on the left side and in the frontal lobes more on the left side; given the history of recent childbirth, these findings are consistent with posterior reversible encephalopathy syndrome. Assessment and Plan Advance Directives: Yes (Full code) VTE prophylaxis?: Chemical Plan of care discussed with patient/family: Yes - Patient Problems (1) New onset seizure Current Visit: Yes Status: Acute Plan to address problem: IV Keppra initiated. Neurology consult requested. (2) hypertension Current Visit: Yes Status: Acute Plan to address problem: Patient initiated on antihypertensives. IV magnesium given. (3) Posterior reversible encephalopathy syndrome Current Visit: Yes Status: Acute Plan to address problem: We will get neurology consult MRI brain ordered (4) Hypokalemia Current Visit: Yes Status: Acute Plan to address problem: Supplemented (5) DVT prophylaxis Current Visit: Yes Status: Acute Plan to address problem: SCDs and GI prophylaxis
--- NOTE | 2019-10-24 17:55 | Consultation ---
History of Present Illness Consult date: 10/24/19 Reason for consult: other ( seizure) History of present illness: PT is a 24 yo now 9 days s/p an uncomplicated on 10/15. record reviewed and pt interviewed (although history per the pt was very limited as she was very groggy and not answering too many questions when I saw her around 1600). She has no h/o HTN and even after delivery her BPs were essentially normal (except for a couple diastolics just over 90). No h/o seizures either. Pt then presented to the ED today s/p a seizure. PT notes SANTIAGO's and blurred vision started today also but could not ascertain whether that was before or after her seizure. BPs were also much higher today in ED than they were after delivery or during her . PT denies any abd or pelvic pain. Past History Past Medical History: other (anemia during , HSV) Past Surgical History: no surgical history DETASSELER History: chlamydia, trichomonas Social history: smoking - Obstetrical History : 4 Para: 4 Number of Living Children: 4 Medications and Allergies Allergies Allergy/AdvReac Type Severity Reaction Status Date / Time No Known Allergies Allergy Verified 09/12/14 16:54 Home Medications Medication Instructions Recorded Confirmed Last Taken Type No Known Home Medications [No 03/12/18 03/12/18 Unknown History Reported Home Medications] Active Meds: Active Medications Sodium Chloride (Nacl 0.9% 1000 Ml) 1,000 mls @ 250 mls/hr IV ONCE ONE Stop: 10/24/19 18:07 Last Admin: 10/24/19 17:16 Dose: 250 mls/hr Documented by: Review of Systems All systems: negative (except HPI) - Vital Signs Vital signs: Vital Signs Temp Pulse Resp BP Pulse Ox 98.3 F 92 H 21 155/112 100 10/24/19 09:56 10/24/19 09:56 10/24/19 09:56 10/24/19 09:56 10/24/19 09:56 Temp Pulse Resp BP Pulse Ox 98.4 F 73 16 148/91 98 10/24/19 10:00 10/24/19 11:05 10/24/19 11:05 10/24/19 11:05 10/24/19 11:05 Results Result Diagrams: 10/24/19 10:45 10/24/19 10:45 Abnormal lab results 10/24/19 10/24/19 Range/Units 10:45 10:45 MCHC 35 H (30-34) % RDW 18.2 H (13.2-15.2) % [place] % (Auto) 9.1 H (0.0-7.3) % Lymph # 1.0 L (1.2-5.4) K/mm3 Seg Neutrophils % 70.5 H (40.0-70.0) % Potassium 3.4 L (3.6-5.0) mmol/L Carbon Dioxide 20 L (22-30) mmol/L Creatinine 0.5 L (0.6-1.2) mg/dL Albumin 3.4 L (3.9-5) g/dL All other labs normal. Assessment and Plan - Patient Problems (1) New onset seizure Current Visit: Yes Status: Acute Plan to address problem: It's difficult to determine if her seizure was secondary to eclampsia or not. It is unsual to occur over a week after delivery, hill in someone with no h/o HTN or seizures. But it is possible. Cont seizure treatment and prophylaxis care per medicine. In eclamptic pts, typically Mag sulfate is started for prophylaxis. 4 g bolus, then 2g/hr. Check Mg level q 6 hrs and keep levels between 4 and 8. Cont MgSO4 for 24-48 hrs atleast and could stop once pt is stable and symptom free and has good urine output. Will call Dr. Cherry to discuss. Would also ideally keep BPs under 160/100. Any questions, feel free to call [employer] COORDINATOR big machine consultant.
[2019-10-24] MEDS: ACETAMINOPHEN 325 MG TAB PO PRN (20:16)
[2019-10-24] MEDS ORDERED: ACETAMINOPHEN 325 MG TAB PO PRN (21:48)
[2019-10-24] MEDS: levETIRAcetam 750 MG in DEXTROSE 5% IN WATER 100 ML IV SCH (22:27)
[2019-10-24] MEDS: FAMOTIDINE 20 MG/2 ML INJ IV SCH (22:27)
[2019-10-24] MEDS: HEPARIN 5,000 UNIT/1 ML VIAL SUB-Q SCH (22:27)
[2019-10-24] MEDS: SODIUM CHLORIDE 0.9% 1000 ML 1,000 ML IV SCH (22:27)
[2019-10-24] MEDS ORDERED: MAGNESIUM SULFATE 2 GM/50 ML BAG IV ONE (22:30)
[2019-10-25] MEDS: ACETAMINOPHEN 325 MG TAB PO PRN ×3 (03:02→19:51)
[2019-10-25 06:29] LABS: Basophils % (Auto) 0.3 % (0.0-1.8); Eosinophils % (Auto) 0.5 % (0.0-4.3); Hematocrit 35.1 % (30.3-42.9); Hemoglobin 11.6 gm/dl (10.1-14.3); Lymphocytes # (Auto) 0.9 K/mm3 (1.2-5.4); Lymphocytes % (Auto) 14.3 % (13.4-35.0); Mean Corpuscular HGB Conc 33 % (30-34); Mean Corpuscular Volume 82 fl (79-97); Monocytes # (Auto) 0.5 K/mm3 (0.0-0.8); Monocytes % (Auto) 7.5 % (0.0-7.3); Platelet Count 281 K/mm3 (140-440); Red Cell Distribution Width 18.7 % (13.2-15.2)
[2019-10-25 06:41] LABS: Alanine Aminotransferase 25 units/L (7-56); Albumin 3.5 g/dL (3.9-5); Blood Urea Nitrogen 5 mg/dL (7-17); Calcium 8.6 mg/dL (8.4-10.2); Hemolysis Index 0
[2019-10-25 06:46] LABS: BUN/Creatinine Ratio 17
[2019-10-25] MEDS ORDERED: POTASSIUM CHLORIDE ER 20 MEQ TAB PO ONE ×2 (08:00→09:00)
[2019-10-25] MEDS: POTASSIUM CHLORIDE 10 MEQ 10 MEQ/100 ML BAG IV SCH ×4 (09:53→19:46)
[2019-10-25] MEDS: HEPARIN 5,000 UNIT/1 ML VIAL SUB-Q SCH ×2 (11:01→22:09)
[2019-10-25] MEDS: FAMOTIDINE 20 MG/2 ML INJ IV SCH (11:01)
--- NOTE | 2019-10-25 16:32 | Consultation ---
History of Present Illness Consult date: 10/25/19 Reason for Consult: Seizure Chief complaint: Seizure History of present illness: Patient is a 24 y/o woman w/ no significant past medical history. She presented yesterday after having a seizure. She had delivered a child about one week prior to admission via . She did have some elevation of blood pressure during pr egnancy, but reportedly did not have pre-eclampsia or eclampsia. She was post- ictal when initially being evaluated, and c/o fatigue and headache. She had bitten her tongue during the seizure. Past History Past Medical History: No medical history Social history: no significant social history, lives with family Family history: no significant family history Medications and Allergies Allergies Allergy/AdvReac Type Severity Reaction Status Date / Time No Known Allergies Allergy Verified 09/12/14 16:54 Home Medications Medication Instructions Recorded Confirmed Last Taken Type No Known Home Medications [No 03/12/18 10/24/19 Unknown History Reported Home Medications] Active Meds: Active Medications Acetaminophen (Tylenol) 650 mg PO Q4H PRN PRN Reason: Pain, Mild (1-3) Last Admin: 10/25/19 09:52 Dose: 650 mg Documented by: Famotidine (Pepcid) 20 mg PO BID [facility] Heparin Sodium (Porcine) (Heparin) 5,000 unit SUB-Q Q12HR [facility] Last Admin: 10/25/19 11:01 Dose: 5,000 unit Documented by: Hydromorphone HCl (Dilaudid) 0.5 mg IV Q3H PRN PRN Reason: Pain , Severe (7-10) Sodium Chloride (Nacl 0.9% 1000 Ml) 1,000 mls @ 75 mls/hr IV DIRECT [facility] Last Admin: 10/24/19 22:27 Dose: 75 mls/hr Documented by: Labetalol HCl (Labetalol) 100 mg PO BID [facility] Last Admin: 10/25/19 11:01 Dose: 100 mg Documented by: Levetiracetam (Keppra) 750 mg PO BID [facility] Metoclopramide HCl (Reglan) 10 mg IV Q6H PRN PRN Reason: Nausea And Vomiting Ondansetron HCl (Zofran) 4 mg IV Q8H PRN PRN Reason: Nausea And Vomiting Oxycodone/Acetaminophen (Percocet 5/325) 1 tab PO Q6H PRN PRN Reason: Pain, Moderate (4-6) Sodium Chloride (Sodium Chloride Flush Syringe 10 Ml) 10 ml IV BID [facility] Last Admin: 10/24/19 22:27 Dose: 10 ml Documented by: Sodium Chloride (Sodium Chloride Flush Syringe 10 Ml) 10 ml IV PRN PRN PRN Reason: LINE FLUSH Review of Systems All systems: negative Neurological: seizures, headaches Physical Examination - Vital Signs Vital Signs: Vital Signs Pulse Ox 100 10/24/19 09:42 - Physical Exam Narrative exam: Patient is alert, awake, oriented x4, follows complex commands. No dysarthria or aphasia noted. PERRL, EOMI, VFF, tongue midline, bilaterally intact to LT, no facial weakness noted. 5/5 strength in all extremities. Bilaterally intact light touch. Bilaterally intact to FTN and HTS. Results - Laboratory Findings CBC and BMP: 10/25/19 04:43 10/25/19 04:43 Abnormal Lab Findings: Abnormal Labs 10/24/19 10/24/19 10/25/19 10:45 10:45 04:43 MCH 27 L MCHC 35 H RDW 18.2 H 18.7 H [place] % (Auto) 9.1 H 7.5 H Lymph # 1.0 L 0.9 L Seg Neutrophils % 70.5 H 77.4 H Potassium 3.4 L Chloride Carbon Dioxide 20 L BUN Creatinine 0.5 L Alkaline Phosphatase Albumin 3.4 L 10/25/19 04:43 MCH MCHC RDW [place] % (Auto) Lymph # Seg Neutrophils % Potassium 2.7 L* D Chloride 107.5 H Carbon Dioxide 19 L BUN 5 L Creatinine 0.3 L Alkaline Phosphatase 130 H Albumin 3.5 L Assessment and Plan Patient is a 24 y/o woman w/ no significant past medical history, who p/w seizure and headache. According to the patient's clinical findings, she likely has PRES, as is seen on imaging. PRES is further complicated in this patient with seizures. There is also a possibility of eclampsia, given elevated BP, and patient is recently post-. Plan: 1. PRES causing seizure, possible eclampsia: - CT head: Areas of hypodensity noted in b/l parietal regions and left frontal region. - MRI brain: Pending - MRV head: Pending - As patient has elevated BP, and is post-, there is possibility of eclampsia. - Recommend further management of possible eclampsia per Obstetrics team, including maintaining normotension. - Discussed with patient regarding starting keppra. Discussed risks/benefits, and patient agreed to starting keppra. Start keppra 500mg BID, as patient has PRES on imaging. She will likely be able to come off of keppra in about 6 months if PRES resolves and she does not have any more seizures. Weaning off of keppra would need to be done under supervision of neurologist as outpatient, and I therefore recommend for patient to follow up with neurology in 3-4 weeks. - Discussed risk of breast feeding while taking keppra, and recommended that patient does not breast feed at this time, as caution is advised for lactating mothers taking keppra. - Discussed with patient regarding no driving until cleared by DMV/DPS. Patient understood and accepted this. Further discussed seizure precautions. - If patient has a seizure lasting >2 minutes, recommend giving ativan 1mg IV stat. If seizure does not resolve within 2 minutes, can repeat x1. Please call primary team and neurology stat if patient has a seizure. - Will continue to monitor patient. Thank you for allowing me to take part in the care of this patient. Ion Good MD Neurology This clinical encounter was provided via live telemedicine platform. Consulta tive service was provided for neurology to support local providers. The Acute Teleneurology team should be contacted with any neurologic worsening or clinical changes, new test results, or new patient history that is reported to or discovered by the local team following completion of the teleneurology consultation, specifically that which has the potential to impact the consultative recommendations. Patient/Family was informed the Neurology Consult would happen via TeleHealth consult by way of interactive audio and video telecommunications and consented to receiving care in this manner. Due to the potential for life-threatening deterioration due to underlying neurologic illness, and limited resources available for patient care, telemedicine was used as means of patient care. Telemedicine consultation is limited in the extent of physical exam that can be virtually provided. Time spent evaluating patient includes time for face to face visit via telemedicine, review of medical records, imaging studies and discussion of findings with providers, the patient and/or family.
[2019-10-25] MEDS: ONDANSETRON 4 MG/2 ML INJ IV PRN (17:15)
[2019-10-25] MEDS: HYDROmorphone 1 MG/1 ML INJ IV PRN ×2 (17:15→22:52)
--- NOTE | 2019-10-25 18:34 | Progress Note ---
Assessment and Plan - Patient Problems (1) New onset seizure Current Visit: Yes Status: Acute Plan to address problem: IV Keppra initiated. Neurology consult requested. (2) hypertension Current Visit: Yes Status: Acute Plan to address problem: Patient initiated on antihypertensives. IV magnesium given. (3) Posterior reversible encephalopathy syndrome Current Visit: Yes Status: Acute Plan to address problem: We will get neurology consult MRI brain ordered (4) Hypokalemia Current Visit: Yes Status: Acute Plan to address problem: Supplemented (5) DVT prophylaxis Current Visit: Yes Status: Acute Plan to address problem: SCDs and GI prophylaxis Subjective Date of service: 10/25/19 Principal diagnosis: Posterior reversible encephalopathy syndrome, seizure disorder Interval history: Patient was admitted for new onset seizures and neck cancer. Patient also has post reversible encephalopathy syndrome. Patient is a headache. Patient doing better. Objective - Constitutional Vitals: Vital Signs - 12hr 10/25/19 10/25/19 10/25/19 08:50 08:52 10:00 Temperature 98.1 F 98.1 F Pulse Rate 98 H 98 H 83 Respiratory 17 17 Rate Blood Pressure 138/88 Blood Pressure 138/88 [Right] O2 Sat by Pulse 99 98 Oximetry 10/25/19 17:04 Temperature 98.0 F Pulse Rate 82 Respiratory 17 Rate Blood Pressure Blood Pressure 164/113 [Right] O2 Sat by Pulse 99 Oximetry General appearance: Present: no acute distress, well-nourished - EENT Eyes: PERRL, EOM intact ENT: hearing intact, clear oral mucosa Ears: bilateral: normal - Neck Neck: supple, normal ROM - Respiratory Respiratory effort: normal Respiratory: bilateral: CTA - Breasts Breasts: normal - Cardiovascular Rhythm: regular Heart Sounds: Present: S1 & S2. Absent: gallop, rub Extremities: pulses intact, No edema, normal color, Full ROM - Gastrointestinal General gastrointestinal: Present: soft, non-tender, non-distended, normal bowel sounds - Genitourinary Female genitourinary: normal - Integumentary Integumentary: clear, warm, dry - Musculoskeletal Musculoskeletal: 1, strength equal bilaterally - Neurologic Neurologic: moves all extremities - Psychiatric Psychiatric: memory intact, appropriate mood/affect, intact judgment & insight - Labs CBC & Chem 7: 10/27/19 02:24 10/27/19 02:24 Labs: Abnormal lab results 10/25/19 10/25/19 Range/Units 04:43 04:43 MCH 27 L (28-32) pg RDW 18.7 H (13.2-15.2) % [place] % (Auto) 7.5 H (0.0-7.3) % Lymph # 0.9 L (1.2-5.4) K/mm3 Seg Neutrophils % 77.4 H (40.0-70.0) % Potassium 2.7 L* D (3.6-5.0) mmol/L Chloride 107.5 H (98-107) mmol/L Carbon Dioxide 19 L (22-30) mmol/L BUN 5 L (7-17) mg/dL Creatinine 0.3 L (0.6-1.2) mg/dL Alkaline Phosphatase 130 H (35-129) units/L Albumin 3.5 L (3.9-5) g/dL
[2019-10-25] MEDS ORDERED: MAGNESIUM SULFATE 4 GM/100 ML BAG IV ONE (18:35)
[2019-10-25] MEDS: levETIRAcetam 750 MG in DEXTROSE 5% IN WATER 100 ML IV SCH (18:49)
[2019-10-25] MEDS ORDERED: levETIRAcetam 500 MG/5 ML ORAL LIQD PO SCH (22:00)
[2019-10-25] MEDS: FAMOTIDINE 20 MG TAB PO SCH (22:10)
[2019-10-25] MEDS: levETIRAcetam 500 MG/5 ML ORAL LIQD PO SCH (22:11)
[2019-10-26] MEDS: SODIUM CHLORIDE 0.9% 1000 ML 1,000 ML IV SCH (01:01)
[2019-10-26] MEDS: HYDROmorphone 1 MG/1 ML INJ IV PRN ×2 (04:31→14:26)
[2019-10-26] MEDS: FAMOTIDINE 20 MG TAB PO SCH ×2 (09:52→21:01)
[2019-10-26] MEDS: levETIRAcetam 500 MG/5 ML ORAL LIQD PO SCH ×2 (09:52→21:01)
[2019-10-26] MEDS: HEPARIN 5,000 UNIT/1 ML VIAL SUB-Q SCH ×2 (09:53→21:01)
--- NOTE | 2019-10-26 10:58 | Progress Note ---
Assessment and Plan - Patient Problems (1) New onset seizure Current Visit: Yes Status: Acute Plan to address problem: --Possibly 2/2 to Eclampsia, however other etiologies cannot be ruled out --Recommend Magnesium 2g/hr, titrate to q6hr Mag level 4 to 8, for 24-48 hours --Consider PO antihypertensive including labetolol, Nifedipine XL, Hydralazine, titrate to BPs <160/110 (best if <140/90), IV antihypertensives prn. Currently on labetolol 100gm BID, titrate as indicated. --Outpatient BP management --Can d/w on-call [facility] as needed for assistance. --Remainder of care per primary team Subjective - Subjective Date of service: 10/26/19 Principal diagnosis: possible eclamptic seizure Interval history: Patient on Mag. On po and IV antihypertensives. No further seizure like activity. CT Head concerning for PRES. Patient reports: appetite normal, voiding normally, other (no seizure like activity, biting tongue, enuresis) [place]: doing well Objective - Vital Signs Latest vital signs: Vital Signs Temp Pulse Resp BP BP Pulse Ox 10/26/19 09:53 65 148/103 10/26/19 08:44 98.6 F 65 16 148/103 98 10/26/19 04:07 98.0 F 92 H 18 141/100 100 10/25/19 23:54 98.0 F 71 18 135/89 99 10/25/19 22:10 71 165/104 10/25/19 22:00 70 10/25/19 19:30 98.4 F 71 18 165/104 100 10/25/19 17:04 98.0 F 82 17 164/113 99 Intake and Output 10/25/19 10/26/19 10/26/19 23:59 07:59 15:59 Intake Total 96.667 Balance 96.667 Intake: IV 96.667 KCL 10MEQ/100ML 10 meq In 96.667 100 ml @ 100 mls/hr IV Q1H [facility] Rx#:[id number] Other: Voiding Method Toilet # Voids Void 3 - Exam Narrative Exam: NAD, AxO x 3 Abdomen: Present: normal appearance, other - Labs Labs: Abnormal lab results 10/26/19 Range/Units 00:27 Magnesium 3.20 H (1.7-2.3) mg/dL
--- NOTE | 2019-10-26 13:33 | Magnetic Resonance Report ---
MR brain wo con INDICATION / CLINICAL INFORMATION: 24 years Female; Post encephalopathy changes. TECHNIQUE: Multiplanar, multisequence MR images of the brain were obtained. COMPARISON: The study is compared to the previous CT of 10/24/2019. FINDINGS: BRAIN / INTRACRANIAL CONTENTS: On the FLAIR sequence, there is extensive fairly symmetric increased s ignal involving the cerebral hemispheres including the frontal lobes and posterior subcortical region s. Additionally, there are scattered asymmetric findings along the gangliocapsular regions and right splenium of the corpus callosum. L5 focus is also noted within the left cerebellum. There is no corre sponding diffusion abnormality as well as the findings would be most consistent with posterior revers ible encephalopathy syndrome in this patient with status likely related to eclampsia; myesha elation would be needed. There is associated mass effect and the above regions with sulcal effacement . There is also mass effect upon the lateral ventricles. CRANIOCERVICAL JUNCTION: No significant abnormality. VASCULAR FLOW-VOIDS: No significant abnormality. ORBITS: No significant abnormality of visualized orbits. SINUSES / MASTOIDS: No significant abnormality in the visualized paranasal sinuses or mastoid air anahi ls. ADDITIONAL FINDINGS: None. IMPRESSION: 1. There is extensive abnormal signal as detailed above in a pattern compatible with posterior revers ible encephalopathy syndrome as detailed above, particularly this patient with given history of postp artum status. There is no evidence of acute infarction. Signer Name: Segundo Scott MD Signed: 10/26/2019 1:28 PM Workstation Name: [id number]
[2019-10-26] MEDS: ONDANSETRON 4 MG/2 ML INJ IV PRN (14:26)
--- NOTE | 2019-10-26 15:10 | Magnetic Resonance Report ---
MRV head without contrast. CLINICAL HISTORY: encephalopathy. FINDINGS: No previous exams available for comparison. 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 On the axial reymundo ges, there is more heterogeneous appearance of the left transverse and sigmoid sinuses which would ap pear to reflect flow related artifact. The right transverse and sigmoid sinuses demonstrate appropriate signal intensity without evidence of thrombosis. The superior sagittal and straight sinuses are patent. The internal cerebral veins also demonstrate appropriate signal intensity. 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 Otherwise, there is no definitive MRV evidence of venous sinus thrombosis. Signer Name: Segundo Scott MD Signed: 10/26/2019 3:05 PM Workstation Name: [id number]
[2019-10-26] MEDS: MAGNESIUM SULFATE 40GM/1000ML 40 GM/1,000 ML BAG IV SCH (16:38)
--- NOTE | 2019-10-26 17:45 | Progress Note ---
Assessment and Plan Patient is a 24 y/o woman w/ no significant past medical history, who p/w seizure and headache. According to the patient's clinical findings, she likely has PRES, as is seen on imaging. PRES is further complicated in this patient with seizures. There is also a possibility of eclampsia, given elevated BP, and patient is recently post-. Plan: 1. PRES causing seizure, possible eclampsia: - CT head: Areas of hypodensity noted in b/l parietal regions and left frontal region. - MRI brain: Hyperintensity on FLAIR sequence, indicative of PRES - MRV head: No evidence of sinus venous thrombosis. - As patient has elevated BP, and is post-, there is possibility of eclampsia. - Recommend further management of possible eclampsia per Obstetrics team, including maintaining normotension. - Discussed with patient regarding starting keppra. Discussed risks/benefits, and patient agreed to starting keppra. Start keppra 500mg BID, as patient has PRES on imaging. She will likely be able to come off of keppra in about 6 months if PRES resolves and she does not have any more seizures. Weaning off of keppra would need to be done under supervision of neurologist as outpatient, and I therefore recommend for patient to follow up with neurology in 3-4 weeks. Recommend follow up MRI in 4 weeks to assess whether PRES has resolved. - Cont. keppra. - Discussed risk of breast feeding while taking keppra, and recommended that patient does not breast feed at this time, as caution is advised for lactating mothers taking keppra. - Discussed with patient regarding no driving until cleared by DMV/DPS. Patient understood and accepted this. Further discussed seizure precautions. - If patient has a seizure lasting >2 minutes, recommend giving ativan 1mg IV stat. If seizure does not resolve within 2 minutes, can repeat x1. Please call primary team and neurology stat if patient has a seizure. - Will sign off, as I am not covering neurology service over the weekend. Please consult neurologist covering the service over the weekend for further neurologic monitoring and management, if felt to be necessary by primary team. If in-house neurologist is not available, recommend transferring patient to facility where neurology service is available for further management. Thank you for allowing me to take part in the care of this patient. Ion Good MD Neurology This clinical encounter was provided via live telemedicine platform. Consultative service was provided for neurology to support local providers. The Acute Teleneurology team should be contacted with any neurologic worsening or clinical changes, new test results, or new patient history that is reported to or discovered by the local team following completion of the teleneurology consultation, specifically that which has the potential to impact the consulta tive recommendations. Patient/Family was informed the Neurology Consult would happen via TeleHealth consult by way of interactive audio and video telecommunications and consented to receiving care in this manner. Due to the potential for life-threatening deterioration due to underlying neurologic illness, and limited resources available for patient care, telemedicine was used as means of patient care. Telemedicine consultation is limited in the extent of physical exam that can be virtually provided. Time spent evaluating patient includes time for face to face visit via telemedicine, review of medical records, imaging studies and discussion of findings with providers, the patient and/or family. Subjective Date of service: 10/26/19 Principal diagnosis: PRES, seizure Interval history: Patient continues to c/o [place] today. BP remains elevated. Objective - Exam Narrative Exam: Patient is alert, awake, oriented x4, follows complex commands. No dysarthria or aphasia noted. PERRL, EOMI, VFF, tongue midline, bilaterally intact to LT, no facial weakness noted. 5/5 strength in all extremities. Bilaterally intact light touch. Bilaterally intact to FTN and HTS. - Vital Sign Vital Signs - 12hr 10/26/19 10/26/19 10/26/19 08:44 09:53 14:35 Temperature 98.6 F 97.6 F Pulse Rate 65 65 116 H Respiratory 16 Rate Blood Pressure 148/103 148/103 Blood Pressure 142/103 [Right] O2 Sat by Pulse 98 Oximetry 10/26/19 10/26/19 15:51 16:38 Temperature 99.1 F Pulse Rate 90 Respiratory 18 Rate Blood Pressure 159/111 160/120 Blood Pressure [Right] O2 Sat by Pulse Oximetry - Laboratory Findings CBC and BMP: 10/25/19 04:43 10/25/19 04:43 Abnormal Lab Findings: Abnormal Labs 10/24/19 10/24/19 10/25/19 10:45 10:45 04:43 MCH 27 L MCHC 35 H RDW 18.2 H 18.7 H [place] % (Auto) 9.1 H 7.5 H Lymph # 1.0 L 0.9 L Seg Neutrophils % 70.5 H 77.4 H Potassium 3.4 L Chloride Carbon Dioxide 20 L BUN Creatinine 0.5 L Magnesium Alkaline Phosphatase Albumin 3.4 L 10/25/19 10/26/19 04:43 00:27 MCH MCHC RDW [place] % (Auto) Lymph # Seg Neutrophils % Potassium 2.7 L* D Chloride 107.5 H Carbon Dioxide 19 L BUN 5 L Creatinine 0.3 L Magnesium 3.20 H Alkaline Phosphatase 130 H Albumin 3.5 L
[2019-10-26] MEDS: METOCLOPRAMIDE 10 MG/2 ML INJ IV PRN (20:42)
[2019-10-26] MEDS: oxyCODONE /ACETAMINOPHEN 5-325MG TAB PO PRN (20:46)
[2019-10-26] MEDS: VALSARTAN 160MG TAB PO SCH (21:01)
--- NOTE | 2019-10-26 21:17 | Progress Note ---
Assessment and Plan - Patient Problems (1) New onset seizure Current Visit: Yes Status: Acute Plan to address problem: IV Keppra initiated. Neurology consult appreciated (2) hypertension Current Visit: Yes Status: Acute Plan to address problem: Patient initiated on antihypertensives. IV magnesium given. (3) Posterior reversible encephalopathy syndrome Current Visit: Yes Status: Acute Plan to address problem: MRI brain consistent with (4) Hypokalemia Current Visit: Yes Status: Acute Plan to address problem: Supplemented (5) DVT prophylaxis Current Visit: Yes Status: Acute Plan to address problem: SCDs and GI prophylaxis Subjective Date of service: 10/26/19 Principal diagnosis: Posterior reversible encephalopathy syndrome, seizure Interval history: Patient was admitted for new onset seizures and neck cancer. Patient also has post reversible encephalopathy syndrome. Patient is a headache. Patient doing better. Objective - Constitutional Vitals: Vital Signs - 12hr 10/26/19 10/26/19 10/26/19 09:53 14:35 15:51 Temperature 97.6 F 99.1 F Pulse Rate 65 116 H Respiratory 18 Rate Blood Pressure 148/103 159/111 Blood Pressure 142/103 [Right] O2 Sat by Pulse Oximetry 10/26/19 10/26/19 10/26/19 16:38 20:03 20:46 Temperature 98.1 F Pulse Rate 90 92 H 92 H Respiratory 18 Rate Blood Pressure 160/120 140/104 140/104 Blood Pressure [Right] O2 Sat by Pulse 97 Oximetry 10/26/19 21:01 Temperature Pulse Rate 92 H Respiratory Rate Blood Pressure 140/104 Blood Pressure [Right] O2 Sat by Pulse Oximetry General appearance: Present: no acute distress, well-nourished - EENT Eyes: PERRL, EOM intact ENT: hearing intact, clear oral mucosa Ears: bilateral: normal - Neck Neck: supple, normal ROM - Respiratory Respiratory effort: normal Respiratory: bilateral: CTA - Breasts Breasts: normal - Cardiovascular Rhythm: regular Heart Sounds: Present: S1 & S2. Absent: gallop, rub Extremities: pulses intact, No edema, normal color, Full ROM - Gastrointestinal General gastrointestinal: Present: soft, non-tender, non-distended, normal bowel sounds - Genitourinary Female genitourinary: normal - Integumentary Integumentary: clear, warm, dry - Musculoskeletal Musculoskeletal: 1, strength equal bilaterally - Neurologic Neurologic: moves all extremities - Psychiatric Psychiatric: memory intact, appropriate mood/affect, intact judgment & insight - Labs CBC & Chem 7: 10/27/19 02:24 10/27/19 02:24 Labs: Abnormal lab results 10/26/19 Range/Units 00:27 Magnesium 3.20 H (1.7-2.3) mg/dL
[2019-10-27 02:51] LABS: Basophils % (Auto) 0.3 % (0.0-1.8); Eosinophils % (Auto) 0.1 % (0.0-4.3); Hemoglobin 12.9 gm/dl (10.1-14.3); Lymphocytes % (Auto) 21.9 % (13.4-35.0); Mean Corpuscular HGB Conc 32 % (30-34); Mean Corpuscular Volume 82 fl (79-97); Monocytes # (Auto) 0.4 K/mm3 (0.0-0.8); Platelet Count 308 K/mm3 (140-440); Red Blood Count 4.89 M/mm3 (3.65-5.03); Red Cell Distribution Width 18.9 % (13.2-15.2)
[2019-10-27 03:17] LABS: Alanine Aminotransferase 21 units/L (7-56); Albumin 3.6 g/dL (3.9-5); Blood Urea Nitrogen 3 mg/dL (7-17); Calcium 7.5 mg/dL (8.4-10.2); Hemolysis Index 4
[2019-10-27 03:30] LABS: BUN/Creatinine Ratio 10
[2019-10-27] MEDS: oxyCODONE /ACETAMINOPHEN 5-325MG TAB PO PRN ×2 (05:22→21:47)
[2019-10-27] MEDS: SODIUM CHLORIDE 0.9% 1000 ML 1,000 ML IV SCH ×2 (05:23→16:09)
[2019-10-27] MEDS: FAMOTIDINE 20 MG TAB PO SCH ×2 (11:21→21:48)
[2019-10-27] MEDS: HEPARIN 5,000 UNIT/1 ML VIAL SUB-Q SCH ×2 (11:21→21:47)
[2019-10-27] MEDS: levETIRAcetam 500 MG/5 ML ORAL LIQD PO SCH ×2 (11:21→21:47)
[2019-10-27] MEDS: VALSARTAN 160MG TAB PO SCH ×2 (11:21→21:48)
[2019-10-27] MEDS: MAGNESIUM SULFATE 40GM/1000ML 40 GM/1,000 ML BAG IV SCH (16:10)
--- NOTE | 2019-10-27 20:12 | Progress Note ---
Assessment and Plan - Patient Problems (1) New onset seizure Current Visit: Yes Status: Acute Plan to address problem: IV Keppra initiated. Neurology consult appreciated (2) hypertension Current Visit: Yes Status: Acute Plan to address problem: Patient initiated on antihypertensives. IV magnesium given. (3) Posterior reversible encephalopathy syndrome Current Visit: Yes Status: Acute Plan to address problem: MRI brain consistent with (4) Hypokalemia Current Visit: Yes Status: Acute Plan to address problem: Supplemented (5) DVT prophylaxis Current Visit: Yes Status: Acute Plan to address problem: SCDs and GI prophylaxis Subjective Date of service: 10/27/19 Principal diagnosis: Posterior reversible encephalopathy syndrome, eclampsia, seizures Interval history: Patient was admitted for new onset seizures and neck cancer. Patient also has post reversible encephalopathy syndrome. Patient is a headache. Patient doing better. Objective - Constitutional Vitals: Vital Signs - 12hr 10/27/19 10/27/19 10/27/19 10:00 10:07 11:21 Temperature Pulse Rate 83 Respiratory Rate Blood Pressure 124/88 O2 Sat by Pulse 98 Oximetry 10/27/19 10/27/19 10/27/19 11:24 15:38 16:16 Temperature 98.8 F Pulse Rate 98 H Respiratory 22 18 Rate Blood Pressure 124/88 119/79 119/79 O2 Sat by Pulse 98 Oximetry General appearance: Present: no acute distress, well-nourished - EENT Eyes: PERRL, EOM intact ENT: hearing intact, clear oral mucosa Ears: bilateral: normal - Neck Neck: supple, normal ROM - Respiratory Respiratory effort: normal Respiratory: bilateral: CTA - Breasts Breasts: normal - Cardiovascular Heart rate: 78 Rhythm: regular Heart Sounds: Present: S1 & S2. Absent: gallop, rub Extremities: pulses intact, No edema, normal color, Full ROM - Gastrointestinal General gastrointestinal: Present: soft, non-tender, non-distended, normal bowel sounds - Genitourinary Female genitourinary: normal - Integumentary Integumentary: clear, warm, dry - Musculoskeletal Musculoskeletal: 1, strength equal bilaterally - Neurologic Neurologic: moves all extremities - Psychiatric Psychiatric: memory intact, appropriate mood/affect, intact judgment & insight - Labs CBC & Chem 7: 10/27/19 02:24 10/27/19 02:24 Labs: Abnormal lab results 10/27/19 10/27/1910/26/20 Range/Units 00:48 02:24 02:24 MCH 27 L (28-32) pg RDW 18.9 H (13.2-15.2) % [place] % (Auto) 8.0 H (0.0-7.3) % Lymph # 1.0 L (1.2-5.4) K/mm3 Sodium (137-145) mmol/L Potassium (3.6-5.0) mmol/L BUN (7-17) mg/dL Creatinine (0.6-1.2) mg/dL Glucose (65-100) mg/dL Calcium (8.4-10.2) mg/dL Magnesium 5.70 H 5.80 H (1.7-2.3) mg/dL Albumin (3.9-5) g/dL 10/27/19 Range/Units 02:24 MCH (28-32) pg RDW (13.2-15.2) % [place] % (Auto) (0.0-7.3) % Lymph # (1.2-5.4) K/mm3 Sodium 135 L (137-145) mmol/L Potassium 3.3 L D (3.6-5.0) mmol/L BUN 3 L (7-17) mg/dL Creatinine 0.3 L (0.6-1.2) mg/dL Glucose 102 H (65-100) mg/dL Calcium 7.5 L (8.4-10.2) mg/dL Magnesium (1.7-2.3) mg/dL Albumin 3.6 L (3.9-5) g/dL
[2019-10-28] MEDS: METOCLOPRAMIDE 10 MG/2 ML INJ IV PRN (08:38)
[2019-10-28] MEDS: SODIUM CHLORIDE 0.9% 1000 ML 1,000 ML IV SCH (08:38)
[2019-10-28] MEDS: FAMOTIDINE 20 MG TAB PO SCH (09:37)
[2019-10-28] MEDS: levETIRAcetam 500 MG/5 ML ORAL LIQD PO SCH (09:37)
[2019-10-28] MEDS: VALSARTAN 160MG TAB PO SCH (09:37)
[2019-10-28] MEDS: HEPARIN 5,000 UNIT/1 ML VIAL SUB-Q SCH (09:37)
[2019-10-28 13:02] VITALS: BP 126/94
[2019-10-28] MEDS: MAGNESIUM SULFATE 40GM/1000ML 40 GM/1,000 ML BAG IV SCH (13:29)
--- NOTE | 2019-10-28 17:58 | Discharge Summary ---
Providers - Providers Date of Admission: 10/25/19 14:00 Date of discharge: 10/28/19 Attending physician: JESSICA YANEZ 10/24/19 12:22 Consult to Physician [CONS] Routine Comment: Consulting Provider: MIRI TORRES Physician Instructions: Reason For Exam: pre-eclampsia vs eclampsia 10/24/19 21:48 Consult to Physician [CONS] Routine Comment: Consulting Provider: ANAYELI AQUINO Physician Instructions: Reason For Exam: New onset seizures versus eclampsia Hospitalization Condition: Fair Hospital course: 1. Posterior reversible encephalopathy syndrome causing seizure, possible eclampsia uncontrolled hypertension - CT head: Areas of hypodensity noted in b/l parietal regions and left frontal region. - MRI brain: Hyperintensity on FLAIR sequence, indicative of PRES - MRV head: No evidence of sinus venous thrombosis. - As patient has elevated BP, and is post-, there is possibility of eclampsia. - Recommend further management of possible eclampsia per Obstetrics team, including maintaining normotension. - Discussed with patient regarding starting keppra. Discussed risks/benefits, and patient agreed to starting keppra. Start keppra 500mg BID, as patient has PRES on imaging. She will likely be able to come off of keppra in about 6 months if PRES resolves and she does not have any more seizures. Weaning off of keppra would need to be done under supervision of neurologist as outpatient, and I therefore recommend for patient to follow up with neurology in 3-4 weeks. Recommend follow up MRI in 4 weeks to assess whether PRES has resolved. - Cont. keppra. - Discussed risk of breast feeding while taking keppra, and recommended that patient does not breast feed at this time, as caution is advised for lactating mothers taking keppra. - Discussed with patient regarding no driving until cleared by DMV/DPS. Patient understood and accepted this. Further discussed seizure precautions. - If patient has a seizure lasting >2 minutes, recommend giving ativan 1mg IV stat. If seizure does not resolve within 2 minutes, can repeat x1. Please call primary team and neurology stat if patient has a seizure. Patient to be discharged on Keppra 500 twice daily Follow-up with neurology as outpatient Patient advised Disposition: - TO HOME OR SELFCARE Time spent for discharge: 35 minutes - Discharge Diagnoses (1) New onset seizure Status: Acute Comment: Keppra 500 twice daily to stop after 6 months (2) hypertension Status: Acute Comment: Patient to be on blood pressure medications at the time of discharge Blood pressure prescriptions given (3) Posterior reversible encephalopathy syndrome Status: Acute Comment: Secondary to eclampsia Keppra for 6 months and follow-up with neurology (4) Hypokalemia Status: Acute Comment: Corrected (5) DVT prophylaxis Status: Acute Core Measure Documentation - Palliative Care Palliative Care/ Comfort Measures: Not Applicable - Core Measures Any of the following diagnoses?: none Exam - Constitutional Vitals: Temp Pulse Resp BP Pulse Ox 97.7 F 81 18 126/94 99 10/28/19 11:36 10/28/19 11:36 10/28/19 11:36 10/28/19 11:36 10/28/19 11:36 General appearance: Present: no acute distress, well-nourished - EENT Eyes: Present: PERRL ENT: hearing intact, clear oral mucosa - Neck Neck: Present: supple, normal ROM - Respiratory Respiratory effort: normal Respiratory: bilateral: CTA - Cardiovascular Heart Sounds: Present: S1 & S2. Absent: rub, click - Extremities Extremities: pulses symmetrical, No edema Peripheral Pulses: within normal limits - Abdominal General gastrointestinal: Present: soft, non-tender, non-distended, normal bowel sounds Female genitourinary: Present: normal - Integumentary Integumentary: Present: clear, warm, dry - Musculoskeletal Musculoskeletal: gait normal, strength equal bilaterally - Psychiatric Psychiatric: appropriate mood/affect, intact judgment & insight - Neurologic Neurologic: CNII-XII intact, moves all extremities Plan Activity: no restrictions Diet: low salt Follow up with: ANASTACIO WILSON [Other] - 3-5 Days YASIR CUNNINGHAM MD [Staff Physician] - 7 Days
== END 2019-10-28 18:30 | disposition home or self-care (01) | DRG 776 ==
LOC: ED 09:33 → 4A 14:46 → OBSVTOIN 10-25 14:00
PROVIDERS: ADMIT Internal Medicine; ATTEND Internal Medicine
DX: O99.355 Diseases of the nervous system complicating the puerperium (principal); R56.9 Unspecified convulsions; I67.83 Posterior reversible encephalopathy syndrome; O99.285 Endocrine, nutritional and metabolic diseases complicating the puerperium; O16.5 Unspecified maternal hypertension, complicating the puerperium; E87.6 Hypokalemia; Z82.49 Family history of ischemic heart disease and other diseases of the circulatory system
CPT/HCPCS: 36415; 70450; 70546; 70551; 80053; 80320; 83735; 85025; 93005; 96365; 96372; 96375; G0378; A9577; G0480; J1170; J1644; J1953; J2405; J2765; J3475; J3480; J7030

== ENCOUNTER 2020-07-22 22:23 | Emergency (ER) | payer MEDICAID ==
[2020-07-22] MEDS ORDERED: levETIRAcetam 1000 MG/NS 0.75% 1,000 MG/100 ML BAG IV ONE (23:37)
[2020-07-22] MEDS ORDERED: SODIUM CHLORIDE 0.9% 1000 ML 1,000 ML IV ONE (23:37)
[2020-07-22] MEDS ORDERED: levETIRAcetam 500 MG in DEXTROSE 5% IN WATER 100 ML IV ONE (23:37)
--- NOTE | 2020-07-22 23:50 | Emergency Department Report ---
HPI - General Chief Complaint: Seizure Time Seen by Provider: 07/22/20 23:15 - HPI HPI: 24-year-old female with history of seizure disorder but not currently taking her prescribed Keppra presents due to having the aura that she has before she has a seizure. She says she has a certain taste in her mouth that she typically gets right before she has a seizure. She also has a mild headache with which is typical of her seizures. She has not taken her Keppra for some time but is unable to ask point why. She states that in addition to having the aura that she has prior to her seizure she also started to have an anxiety attack at the same time. She says during her anxiety attack she experienced severe anxiety and shortness of breath which is typical of her anxiety attacks. However, when I interviewed the patient, she stated that her anxiety attack had resolved after she arrived here. Her seizure aura also resolved but she still has a mild hea dache. She also says she has had nausea with a couple episodes of vomiting. She denies any recent alcohol ingestion or sleep deprivation. Her last seizure was in October. She does not currently have a neurologist. She states that her LMP started 2 weeks ago and that she is still on it now. She says that other than these complaints she has not had any visual changes, neck pain, chest pain, cough, fever, abdominal pain, dysuria, focal weakness, sensory changes, or any other complaints. ED Past Medical Hx - Past Medical History Hx Diabetes: No Hx Seizures: Yes Hx Psychiatric Treatment: Yes (depression, anxiety) Additional medical history: freq uti/pyleonephritis, Vaginal dleivery 01-20-2017, 11-19-2017 - Surgical History Past Surgical History?: No - Social History Smoking Status: Current Every Day Smoker Substance Use Type: None - Medications Home Medications: Home Medications Medication Instructions Recorded Confirmed Last Taken Type levETIRAcetam [Keppra TAB] 500 mg PO BID #60 tablet 07/23/20 Unknown Rx ED Review of Systems ROS: Stated complaint: FEELING PRIOR TO SEIZURES Other details as noted in HPI Constitutional: denies: chills, fever Eyes: denies: vision change ENT: denies: throat pain, congestion Respiratory: denies: cough, shortness of breath Cardiovascular: denies: chest pain, syncope Gastrointestinal: nausea, vomiting. denies: abdominal pain, diarrhea, constipation Genitourinary: abnormal menses. denies: dysuria, frequency Musculoskeletal: denies: back pain, myalgia Skin: denies: rash Neurological: headache. denies: weakness, numbness, paresthesias Psychiatric: anxiety. denies: auditory hallucinations, visual hallucinations, homicidal thoughts, suicidal thoughts Physical Exam - Physical Exam Vital Signs: Vital Signs 07/22/20 07/22/20 22:40 23:20 Temperature 98.1 F 98.5 F Pulse Rate 109 H 70 Respiratory 18 16 Rate Blood Pressure 115/61 Blood Pressure 98/64 [Left] O2 Sat by Pulse 100 99 Oximetry Physical Exam: GENERAL: Well developed and well nourished. No acute distress HEENT: Normocephalic. No obvious signs of trauma. Dry mucous membranes. EYES: Extraocular movements are intact. Pupils are equal round and reactive to light bilaterally NECK: Supple. Trachea is midline. LUNGS: Nonlabored breathing. Equal chest rise bilaterally. Clear to auscultation bilaterally. HEART/CARDIOVASCULAR: Regular rate and rhythm. No murmurs or rubs. VASCULAR: 2+ peripheral pulses. ABDOMEN: Abdomen is soft and nondistended. There is no significant tenderness, guarding or rebound. SKIN: Skin is warm and dry NEURO: Patient is awake, alert, and oriented. back closer II-XII grossly intact. No focal deficits. Normal motor and sensory exam throughout. Normal speech. There is some shaking noted of the upper extremities MUSCULOSKELETAL: No obvious deformities. No significant tenderness. Normal ROM throughout. ED Course Vital Signs 07/22/20 07/22/20 22:40 23:20 Temperature 98.1 F 98.5 F Pulse Rate 109 H 70 Respiratory 18 16 Rate Blood Pressure 115/61 Blood Pressure 98/64 [Left] O2 Sat by Pulse 100 99 Oximetry ED Medical Decision Making - Lab Data Result diagrams: 07/22/20 23:40 07/22/20 23:40 Laboratory Results - last 24 hr 07/22/20 07/22/20 07/22/20 23:40 23:40 23:40 WBC 9.5 RBC 4.23 Hgb 13.0 Hct 37.9 MCV 90 MCH 31 MCHC 34 RDW 13.7 Plt Count 246 Lymph % (Auto) 8.1 L [place] % (Auto) 3.2 Eos % (Auto) 0.1 Baso % (Auto) 0.2 Lymph # (Auto) 0.8 L [place] # (Auto) 0.3 Eos # (Auto) 0.0 Baso # (Auto) 0.0 Seg Neutrophils % 88.4 H Seg Neutrophils # 8.4 H Sodium 139 Potassium 3.5 L Chloride 101.3 Carbon Dioxide 26 Anion Gap 15 BUN 10 Creatinine 0.6 Estimated GFR > 60 BUN/Creatinine Ratio 17 Glucose 128 H Calcium 8.9 Magnesium 2.00 Total Bilirubin 0.20 Direct Bilirubin < 0.2 Indirect Bilirubin 0.0 AST 14 ALT 13 Alkaline Phosphatase 60 Total Protein 7.0 Albumin 4.2 Albumin/Globulin Ratio 1.5 Lipase HCG, Qual Negative Urine Color Urine Turbidity Urine pH Ur Specific [place] Urine Protein Urine Glucose (UA) Urine Ketones Urine Blood Urine Nitrite Urine Bilirubin Urine Urobilinogen Ur Leukocyte Esterase Urine WBC (Auto) Urine RBC (Auto) U Epithel Cells (Auto) Urine Bacteria (Auto) 07/22/20 07/23/20 23:43 01:16 WBC RBC Hgb Hct MCV MCH MCHC RDW Plt Count Lymph % (Auto) [place] % (Auto) Eos % (Auto) Baso % (Auto) Lymph # (Auto) [place] # (Auto) Eos # (Auto) Baso # (Auto) Seg Neutrophils % Seg Neutrophils # Sodium Potassium Chloride Carbon Dioxide Anion Gap BUN Creatinine Estimated GFR BUN/Creatinine Ratio Glucose Calcium Magnesium Total Bilirubin Direct Bilirubin Indirect Bilirubin AST ALT Alkaline Phosphatase Total Protein Albumin Albumin/Globulin Ratio Lipase 20 HCG, Qual Urine Color Straw Urine Turbidity Clear Urine pH 8.0 H Ur Specific [place] 1.011 Urine Protein <15 mg/dl Urine Glucose (UA) 150 Urine Ketones Neg Urine Blood Mod Urine Nitrite Neg Urine Bilirubin Neg Urine Urobilinogen < 2.0 Ur Leukocyte Esterase Neg Urine WBC (Auto) 3.0 Urine RBC (Auto) 5.0 U Epithel Cells (Auto) 2.0 Urine Bacteria (Auto) 1+ - Radiology Data CHEST 1 VIEW INDICATION / CLINICAL INFORMATION: anxiety, SOB. COMPARISON: None available. FINDINGS: SUPPORT DEVICES: None. HEART / MEDIASTINUM: No significant abnormality. LUNGS / PLEURA: No significant pulmonary or pleural abnormality. No pneumothorax. ADDITIONAL FINDINGS: No significant additional findings. IMPRESSION: 1. No acute findings. Signer Name: Rosana Camilo MD Signed: 07/22/2020 11:39 PM Workstation Name: [id number] - Medical Decision Making 24-year-old female with history of seizure disorder not currently taking her prescribed Keppra presenting with her seizure aura which consists of a particular taste in her mouth. She also has a mild headache and shaking of her upper extremities which is typical of what she gets right before she has a seizure. Her last seizure was in October. She also states that she presented having what is typical for her anxiety attacks which consist of both anxiety and shortness of breath. In addition, she states that over the same period of time she has had some nausea with a couple episodes of nonbloody nonbilious vomiting. Her anxiety and shortness of breath resolved as well as her seizure aura but her mild headache and nausea persist. On initial presentation she is afebrile and with normal vital signs wityh the exception of mildlyu elevated HR which resolved at the same time as her anxiety. Physical examination reveals dry mucous membranes. She has some shaking of her upper extremities but otherwise she has a nonfocal neurologic exam. Abdomen is soft and nontender. In addition, the patient is noted to have a blood pressure ranging from the 80s-90s/50s-60s. She is not tachycardic. She has normal oxygen saturation on room air. Although her presentation could easily be explained by noncompliance with her prescribed Keppra, given presentation with multiple symptoms at the same time we will perform broad work-up with a full set of labs and chest x-ray. Will give 2 L of IV fluids and a loading dose of IV Keppra and continue to monitor her closely. On repeat assessment at 1:30 AM, the patient is resting comfortably in the bed. She states that all of her symptoms have resolved. She is still shaking but she says that she shakes all the time and that this is not abnormal for her. Labs have returned and reveal no leukocytosis or anemia. Her kidney function is normal. There is no serious electrolyte abnormality. Urinalysis is still pending. The nurse informed me that she discovered the blood pressure cuff was malpositioned and that when she repositioned it, the patient had normal blood pressure in the 110s/60s. I discussed with the patient plan for discharge with a prescription to refill her Keppra and follow-up with a neurologist. I discussed with the patient the fact that if she does not take her prescribed Keppra she could continue to have further seizures. She promises me that she will take the prescribed Keppra and follow up with her doctor. Urinalysis has returned and is negative for infection. The patient's blood pressure has been normal since it was repositioned. I went into the room and again saw blood pressure measured in the 90s systolic. However, the patient is positioned with her legs drawn in and on her side. When I had the patient lay supine with her legs straight and checked the blood pressure myself it was 104/74. The patient will be discharged according to the plan. Critical care attestation.: If time is entered above; I have spent that time in minutes in the direct care of this critically ill patient, excluding procedure time. ED Disposition Clinical Impression: Seizure disorder, Panic attack Disposition: - TO HOME OR SELFCARE Is pt being admited?: No Condition: Stable Instructions: Epilepsy, Panic Attack, Managing Anxiety, Adult Additional Instructions: Please take your Keppra as prescribed. Follow-up with your doctor within next few days. Please return to the emergency department immediately should you develop new or worsening symptoms or any other new concerns. Prescriptions: levETIRAcetam [Keppra TAB] 500 mg PO BID #60 tablet Referrals: NHUNG TSANG MD [Referring] - 3-5 Days SHARON TOBIN MD [Staff Physician] - 3-5 Days
[2020-07-23 00:03] LABS: Basophils % (Auto) 0.2 % (0.0-1.8); Eosinophils % (Auto) 0.1 % (0.0-4.3); Hematocrit 37.9 % (30.3-42.9); Lymphocytes # (Auto) 0.8 K/mm3 (1.2-5.4); Lymphocytes % (Auto) 8.1 % (13.4-35.0); Mean Corpuscular HGB Conc 34 % (30-34); Mean Corpuscular Volume 90 fl (79-97); Monocytes # (Auto) 0.3 K/mm3 (0.0-0.8); Monocytes % (Auto) 3.2 % (0.0-7.3); Platelet Count 246 K/mm3 (140-440); Red Blood Count 4.23 M/mm3 (3.65-5.03); Red Cell Distribution Width 13.7 % (13.2-15.2)
[2020-07-23 00:25] LABS: Alanine Aminotransferase 13 units/L (7-56); Albumin 4.2 g/dL (3.9-5); Blood Urea Nitrogen 10 mg/dL (7-17); Calcium 8.9 mg/dL (8.4-10.2); Hemolysis Index 4
[2020-07-23] MEDS ORDERED: SODIUM CHLORIDE 0.9% 1000 ML 1,000 ML IV ONE (00:30)
--- NOTE | 2020-07-23 00:44 | XRay Report ---
CHEST 1 VIEW INDICATION / CLINICAL INFORMATION: anxiety, SOB. COMPARISON: None available. FINDINGS: SUPPORT DEVICES: None. HEART / MEDIASTINUM: No significant abnormality. LUNGS / PLEURA: No significant pulmonary or pleural abnormality. No pneumothorax. ADDITIONAL FINDINGS: No significant additional findings. IMPRESSION: 1. No acute findings. Signer Name: Rosana Camilo MD Signed: 07/23/2020 12:39 AM Workstation Name: [id number]
[2020-07-23 00:57] LABS: BUN/Creatinine Ratio 17; Bilirubin,Direct < 0.2 mg/dL (0-0.2)
[2020-07-23 01:39] LABS: Bacteria,Urine 1+ /HPF (Negative); Bilirubin,Urine NEG (Negative); Blood,Urine MOD (Negative); Color,Urine Straw (Yellow); Protein,Urine <15 mg/dL mg/dL (Negative); Urobilinogen,Urine < 2.0 mg/dL (<2.0)
[2020-07-23 02:41] VITALS: BP 104/62
== END 2020-07-23 02:15 | disposition home or self-care (01) ==
LOC: ED 22:23
DX: G40.909 Epilepsy, unspecified, not intractable, without status epilepticus (principal); F41.0 Panic disorder [episodic paroxysmal anxiety]; F17.200 Nicotine dependence, unspecified, uncomplicated; Z79.899 Other long term (current) drug therapy
CPT/HCPCS: 36415; 71045; 80048; 80076; 81001; 83690; 83735; 84703; 85025; 96361; 96365; 96376; 99284; J1953; J7030

== ENCOUNTER 2021-06-03 06:14 | Emergency (ER) | payer MEDICAID ==
[2021-06-03 06:23] VITALS: BP 104/58
[2021-06-03] MEDS ORDERED: ONDANSETRON 4 MG/2 ML INJ IV ONE (06:53)
[2021-06-03] MEDS ORDERED: SODIUM CHLORIDE 0.9% 1000 ML 1,000 ML IV ONE (06:53)
--- NOTE | 2021-06-03 06:57 | Emergency Department Report ---
ED Female HPI - General Chief complaint: Vaginal Bleeding Stated complaint: ABD PAIN;3 MONTHS Time Seen by Provider: 06/03/21 06:38 Source: patient, family Mode of arrival: Ambulatory Limitations: No Limitations - History of Present Illness Initial comments: Patient is 25 years old female 5 para 4 at 13 weeks . Patient presented to the ER complaining of lower abdominal cramping, vaginal bleeding, nausea vomiting and diarrhea for the last 3 days. Patient denies any fever or chills. No chest pain or shortness of breath. MD Complaint: vaginal bleeding, pelvic pain -: days(s) (3) Radiation: non-radiating Severity: moderate Severity scale (0 -10): 4 Quality: cramping - Related Data Previous Rx's Medication Instructions Recorded Last Taken Type levETIRAcetam [Keppra TAB] 500 mg PO BID #60 tablet 07/23/20 Unknown Rx Allergies Allergy/AdvReac Type Severity Reaction Status Date / Time No Known Allergies Allergy Verified 07/22/20 23:54 ED Review of Systems ROS: Stated complaint: ABD PAIN;3 MONTHS Other details as noted in HPI Comment: All other systems reviewed and negative Constitutional: denies: chills, fever Respiratory: denies: cough, shortness of breath, SOB with exertion Cardiovascular: denies: chest pain, palpitations Gastrointestinal: abdominal pain, nausea, vomiting, diarrhea Musculoskeletal: denies: back pain Neurological: denies: headache, weakness, numbness, paresthesias, confusion ED Past Medical Hx - Past Medical History Previous Medical History?: Yes Hx Hypertension: No Hx Congestive Heart Failure: No Hx Diabetes: No Hx Deep Vein Thrombosis: No Hx Renal Disease: No Hx Sickle Cell Disease: No Hx Seizures: Yes Hx Psychiatric Treatment: Yes (depression, anxiety) Hx Asthma: No Hx COPD: No Hx HIV: No Additional medical history: freq uti/pyleonephritis, Vaginal dleivery 01-20-2017, 11-19-2017 - Surgical History Past Surgical History?: No - Social History Smoking Status: Current Every Day Smoker Substance Use Type: None - Medications Home Medications: Home Medications Medication Instructions Recorded Confirmed Last Taken Type levETIRAcetam [Keppra TAB] 500 mg PO BID #60 tablet 07/23/20 Unknown Rx ED Physical Exam - General Limitations: No Limitations General appearance: alert, in no apparent distress - Head Head exam: Present: atraumatic, normocephalic, normal inspection - ENT ENT exam: Present: mucous membranes dry - Neck Neck exam: Present: normal inspection, full ROM. Absent: tenderness, meningismus - Respiratory Respiratory exam: Present: normal lung sounds bilaterally - Cardiovascular Cardiovascular Exam: Present: regular rate, normal rhythm, normal heart sounds - GI/Abdominal GI/Abdominal exam: Present: soft, normal bowel sounds, other (gravid). Absent: distended, tenderness, guarding, rebound, rigid, bruit, pulsatile mass, hernia - Extremities Exam Extremities exam: Present: normal inspection, full ROM, normal capillary refill. Absent: tenderness, pedal edema, calf tenderness - Back Exam Back exam: Present: normal inspection, full ROM. Absent: CVA tenderness (R), CVA tenderness (L) - Neurological Exam Neurological exam: Present: alert, oriented X3, CN II-XII intact, normal gait, reflexes normal. Absent: motor sensory deficit - Psychiatric Psychiatric exam: Present: normal mood - Skin Skin exam: Present: warm, dry, intact, normal color. Absent: cyanosis, diaphoretic, erythema ED Course Vital Signs 06/03/21 06:22 Temperature 98.5 F Pulse Rate 93 H Respiratory 16 Rate Blood Pressure 104/58 [Right] O2 Sat by Pulse 94 Oximetry ED Medical Decision Making - Lab Data Result diagrams: 06/03/21 Unknown 06/03/21 Unknown - Radiology Data Radiology results: report reviewed - Medical Decision Making Patient is 25 years old female 5 para 4 at 13 weeks . Patient presented to the ER complaining of lower abdominal cramping, vaginal bleeding, nausea vomiting and diarrhea for the last 3 days. Patient denies any fever or chills. No chest pain or shortness of breath. Patient received normal saline and Zofran. Patient stated that she is feeling much better. Labs reviewed and showed a UTI. Doppler ultrasound showed an intrauterine viable gestation at 16 weeks. Patient advised to follow-up with her OB doctor in the next 2 to 3 days and to return to the ER if she develop any new symptoms. Critical care attestation.: If time is entered above; I have spent that time in minutes in the direct care of this critically ill patient, excluding procedure time. ED Disposition Clinical Impression: Abdominal pain affecting , Vaginal bleeding affecting early , UTI in Disposition: 01 HOME / SELF CARE / HOMELESS Is pt being admited?: No Condition: Stable Instructions: and Urinary Tract Infection Referrals: PRIMARY CARE, [Primary Care Provider] - 3-5 Days
[2021-06-03 07:44] LABS: Blood Urea Nitrogen 6 mg/dL (7-17); Hemolysis Index 12
[2021-06-03 07:45] LABS: BUN/Creatinine Ratio 15
[2021-06-03 07:52] LABS: Basophils % (Auto) 0.9 % (0.0-1.8); Eosinophils % (Auto) 1.2 % (0.0-4.3); Lymphocytes # (Auto) 0.7 K/mm3 (1.2-5.4); Lymphocytes % (Auto) 18.6 % (13.4-35.0); Mean Corpuscular HGB Conc 36 % (30-34); Mean Corpuscular Volume 93 fl (79-97); Monocytes # (Auto) 0.2 K/mm3 (0.0-0.8); Monocytes % (Auto) 6.4 % (0.0-7.3); Platelet Count 167 K/mm3 (140-440); Red Cell Distribution Width 13.4 % (13.2-15.2)
[2021-06-03 08:01] LABS: INR 0.97 (0.87-1.13)
[2021-06-03 08:24] LABS: Hematocrit 38.8 % (30.3-42.9)
--- NOTE | 2021-06-03 08:32 | Ultrasound Report ---
ULTRASOUND OBSTETRIC INDICATION / CLINICAL INFORMATION: Vaginal bleeding/ 3month. Clinical Gestational Age (GA) in weeks, days: Unknown TECHNIQUE: Transabdominal. COMPARISON: None available. FINDINGS: Single intrauterine . Biparietal Diameter = 3.6 cm = 17, 1 weeks, days Head Circumference = 12.2 cm = 16, 1 weeks, days Abdominal Circumference = 10.9 cm = 16, 5 weeks, days Femur Length = 1.9 cm = 15, 4 weeks, days Average Ultrasound Age (AUA) = 16, 3 weeks, days Heart Rate: 131 beats per minute. Estimated Weight in grams (if calculated): 148 Estimated Weight Growth Percentile (if calculated): Not calculated Position: transverse. Cervix: closed. Length in cm (if measured): 4.3 Placenta: Fundal and free of the os. Amniotic Fluid Volume: normal Amniotic Fluid Index (GAURI) in cm (if calculated): Not calculated. Maternal Adnexa: No significant abnormality. Other: There is incidental note of a placental hernandez at the cord insertion. IMPRESSION: 1. Single, living intrauterine with estimated sonographic age of 16, 3 weeks, days. 2. Incidental note of placental hernandez at the cord insertion Signer Name: Trent Weiner DO Signed: 06/03/2021 8:28 AM Workstation Name: [id number]
[2021-06-03 08:55] LABS: Bacteria,Urine 1+ /HPF (Negative); Bilirubin,Urine NEG (Negative); Blood,Urine NEG (Negative); Color,Urine Yellow (Yellow); Mucus,Urine FEW /HPF; Protein,Urine <15 mg/dL mg/dL (Negative); Urobilinogen,Urine < 2.0 mg/dL (<2.0)
== END 2021-06-03 10:22 | disposition home or self-care (01) ==
LOC: ED 06:14
DX: O46.91 Antepartum hemorrhage, unspecified, first trimester (principal); O23.40 Unspecified infection of urinary tract in pregnancy, unspecified trimester; O26.891 Other specified pregnancy related conditions, first trimester; R10.9 Unspecified abdominal pain; F17.200 Nicotine dependence, unspecified, uncomplicated
CPT/HCPCS: 36415; 76805; 80048; 81001; 84702; 85025; 85610; 86900; 86901; 87086; 96361; 96374; 99284; J2405; J7030

== ENCOUNTER 2021-08-31 15:11 | Outpatient (CLI) | payer MEDICAID ==
[2021-08-31] MEDS ORDERED: LACTATED RINGERS 500 ML IV ONE (15:52)
--- NOTE | 2021-08-31 17:09 | Ultrasound Report ---
ULTRASOUND OBSTETRIC LIMITED ULTRASOUND BIOPHYSICAL PROFILE INDICATION / CLINICAL INFORMATION: placenta scan/efw. Clinical Gestational Age (GA) in weeks, days: 28, 4 TECHNIQUE: Transabdominal. COMPARISON: None available. FINDINGS: BREATHING MOVEMENT = 2 GROSS BODY MOVEMENT = 2 TONE = 2 QUALITATIVE AMNIOTIC FLUID VOLUME = 2 TOTAL BIOPHYSICAL SCORE = 8/8 HEART RATE (beats per minute): 149 AMNIOTIC FLUID INDEX (cm) = 17.7 (normal = 7-24 cm) PRESENTATION: Cephalic. ADDITIONAL FINDINGS: Estimated age is 29 weeks 3 days by ultrasound. Estimated weight is 1375 g. The placenta is posteriorly located without evidence of abruption. IMPRESSION: 1. Biophysical Score = 8/8 . 2. No evidence of abruption. Signer Name: Wojciech Agee MD Signed: 08/31/2021 5:05 PM Workstation Name: [id number]
[2021-08-31 18:17] LABS: Bilirubin,Urine NEG (Negative); Blood,Urine NEG (Negative); Color,Urine Yellow (Yellow); Urobilinogen,Urine < 2.0 mg/dL (<2.0)
[2021-08-31 18:19] LABS: Mucus,Urine FEW /HPF
[2021-08-31 19:04] LABS: Basophils % (Auto) 0.3 % (0.0-1.8); Eosinophils % (Auto) 0.3 % (0.0-4.3); Hematocrit 23.6 % (30.3-42.9); Hemoglobin 8.5 gm/dl (10.1-14.3); Lymphocytes # (Auto) 0.6 K/mm3 (1.2-5.4); Lymphocytes % (Auto) 7.9 % (13.4-35.0); Mean Corpuscular HGB Conc 36 % (30-34); Mean Corpuscular Volume 92 fl (79-97); Monocytes # (Auto) 0.5 K/mm3 (0.0-0.8); Monocytes % (Auto) 6.1 % (0.0-7.3); Platelet Count 190 K/mm3 (140-440); Red Blood Count 2.56 M/mm3 (3.65-5.03); Red Cell Distribution Width 13.6 % (13.2-15.2)
[2021-08-31] MEDS ORDERED: ACETAMINOPHEN 500 MG TAB PO PRN (19:18)
[2021-08-31 19:19] LABS: Amphetamine Screen,Urine Negative; Benzodiazepines Screen,Urine Negative; Cocaine Screen,Urine Negative; Methadone Screen,Urine Negative; Opiate Screen,Urine Negative
[2021-08-31 19:54] LABS: Albumin 2.9 g/dL (3.9-5); Blood Urea Nitrogen 4 mg/dL (7-17); Calcium 8.5 mg/dL (8.4-10.2); Hemolysis Index 5
[2021-08-31 19:56] LABS: Cannabinoid Screen,Urine Positive
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
[2021-08-31 20:04] LABS: Alanine Aminotransferase < 5 units/L (7-56); BUN/Creatinine Ratio 10
[2021-08-31] MEDS ORDERED: POTASSIUM CHLORIDE ER 20 MEQ TAB PO ONE (20:13)
[2021-08-31 22:50] VITALS: BP 145/83
--- NOTE | 2021-09-02 08:20 | Ultrasound Report ---
ULTRASOUND OBSTETRIC LIMITED ULTRASOUND BIOPHYSICAL PROFILE INDICATION / CLINICAL INFORMATION: bpp. Clinical Gestational Age (GA) in weeks, days: 28, 4 TECHNIQUE: Transabdominal. COMPARISON: None available. FINDINGS: BREATHING MOVEMENT = 2 GROSS BODY MOVEMENT = 2 TONE = 2 QUALITATIVE AMNIOTIC FLUID VOLUME = 2 TOTAL BIOPHYSICAL SCORE = 8/8 HEART RATE (beats per minute): 137 PRESENTATION: Cephalic. ADDITIONAL FINDINGS: None. IMPRESSION: 1. Biophysical Score = 8/8 Signer Name: Trent Weiner DO Signed: 09/02/2021 8:16 AM Workstation Name: [id number]
== END 2021-09-01 13:55 | disposition home or self-care (01) ==
LOC: TRG 15:11 → LD 15:12 → APU 23:31 → TRG 09-01 13:55
PROVIDERS: ATTEND Obstetrics & Gynecology
DX: Z34.93 Encounter for supervision of normal pregnancy, unspecified, third trimester (principal); Z3A.28 28 weeks gestation of pregnancy
CPT/HCPCS: 36415; 76816; 76819; 80053; 80307; 81001; 85025; 85460; 86850; 86900; 86901; 87086